=== PATIENT | female | born 1935 | race Caucasian/White ===

== ENCOUNTER → 2016-08-17 | Outpatient (CLI) | payer BC ==
[~2016-08-17] MED LIST: ACET-1256 PO; ASPI81TA21 PO; CINN1CAP2 PO; CPR500 PO; FISHOIL PO; FURO20TA PO; IBUP-1050 PO; LOSA25TA18 PO; MULT-831 PO; MULTTAB58 PO; POLY335040 PO; PRLSR20 PO; TURM1CAP4 PO; VTMD1000 PO
--- NOTE | 2016-08-17 13:52 | MAMMOGRAPHY REPORT ---
BILATERAL DIGITAL SCREENING MAMMOGRAM WITH CAD: 08/17/2016 CLINICAL HISTORY: Routine screening. Patient has no complaints. TECHNIQUE: Current study was also evaluated with a Computer Aided Detection (CAD) system. Bilatera l CC and MLO views were obtained. COMPARISON: Comparison is made to exams dated: 08/16/2015 mammogram, 08/02/2014 mammogram, 07/28/2013 m ammogram, 07/23/2012 mammogram, 07/18/2011 mammogram, and 07/17/2010 mammogram - [facility]. BREAST COMPOSITION: The tissue of both breasts is almost entirely fatty. FINDINGS: No suspicious masses, calcifications, or areas of architectural distortion are noted in e ither breast. There has been no significant interval change compared to prior exams. Scattered tierney gn-appearing right breast calcifications are stable. Asymmetry seen within the left breast middle d epth posterior to the nipple on the cc view is similar to prior exams. IMPRESSION: ACR BI-RADS CATEGORY 2: BENIGN There is no mammographic evidence of malignancy. A 1 year screening mammogram is recommended. The p atient will receive written notification of the results. Approximately 10% of breast cancers are not detected with mammography. A negative mammographic repor t should not delay biopsy if a clinically suggestive mass is present. Susana Duran M.D. /:08/17/2016 12:22:06 [employer] Coordinator: Nabila Benavidez RT(R)(M), [facility] letter sent: Normal 1/2 BI-RADS Code: ACR BI-RADS Category 2: Benign
== END | disposition home or self-care (01) ==
LOC: C.MAMM 11:41
PROVIDERS: ATTEND Obstetrics & Gynecology
DX: Z12.31 Encounter for screening mammogram for malignant neoplasm of breast (principal)

== ENCOUNTER → 2017-02-28 | Outpatient (CLI) | payer BC ==
[2017-02-28 12:30] LABS: BASO % 0.3 %; BASO ABS # 0.03 K/uL (0-0.2); COMPLETE YES; EOS % 2.4 %; IG% 0.3 %; LYMPH % 17.8 %; MEAN CELL VOLUME 93.5 fL (80-100); MEAN CORPUSCULAR HEMOGLOBIN 29.5 pg (25-34); MEAN CORPUSCULAR HGB CONC 31.5 g/dl (32-36); MEAN PLATELET VOLUME 9.5 fL (7.4-10.4); MONO % 8.6 %; NEUT % 70.6 %; PLATELET COUNT 289 K/uL (130-400); RED BLOOD COUNT 4.17 M/uL (4.2-5.4); WHITE BLOOD COUNT 9.53 K/uL (4.8-10.8)
[2017-02-28 13:11] LABS: ALT/SGPT 21 U/L (12-78); AST/SGOT 14 U/L (15-37); BLOOD UREA NITROGEN 23 mg/dl (7-18); BUN/CREATININE RATIO 29.8 (10-20); CALCIUM 9.7 mg/dl (8.5-10.1); CARBON DIOXIDE 28 mmol/L (21-32); CHLORIDE 104 mmol/L (98-107); CREATININE 0.77 mg/dl (0.60-1.20); GLUCOSE 91 mg/dl (70-99); POTASSIUM 4.2 mmol/L (3.5-5.1); SODIUM 137 mmol/L (136-145)
[2017-02-28 13:21] LABS: ALB/GLOB RATIO 0.9 (0.9-2); ALKALINE PHOSPHATASE 94 U/L (45-117); RHEUMATOID FACTOR < 10.0 U/mL (0-15)
[2017-02-28 13:43] LABS: LYME DISEASE AB IGM NEG (NEG)
[2017-02-28 13:46] LABS: LYME DISEASE AB IGG NEG (NEG)
[2017-03-02 11:08] LABS: METHYLMALONIC ACID 201 NMOL/L (87-318)
--- NOTE | 2017-03-06 12:16 | CODING QUERY MEDICAL NECESSITY ---
SUPPORTING DIAGNOSIS NEEDED A supporting diagnosis is required for the test/procedure performed on this patient in order for us to be reimbursed by the patient's insurance. Please provide a supporting diagnosis for the following test/procedure listed below next to the test name along with your signature. *If there is no additional diagnosis for this patient that would support the following test/procedure please document that below next to the test/procedure. Test(s)/Procedure(s) that require a supporting diagnosis: * VITAMIN B12 DIAGNOSIS: Provider Signature: Date: Thank you Evelyn Nisland [employer] Once completed, please kindly fax back to [phone] For questions please call [phone]
== END | disposition home or self-care (01) ==
LOC: C.LAB 11:34
PROVIDERS: ATTEND Internal Medicine Critical Care Medicine
DX: D64.9 Anemia, unspecified (principal); M19.90 Unspecified osteoarthritis, unspecified site; E03.9 Hypothyroidism, unspecified; R53.83 Other fatigue; G62.9 Polyneuropathy, unspecified

== ENCOUNTER → 2017-04-25 | Outpatient (CLI) | payer BC ==
[2017-04-25 09:50] LABS: BASO % 0.2 %; BASO ABS # 0.02 K/uL (0-0.2); COMPLETE YES; EOS % 2.5 %; HEMATOCRIT 42.3 % (37-47); IG% 0.3 %; LYMPH % 20.4 %; LYMPH ABS # 2.21 K/uL (1.2-3.4); MEAN CELL VOLUME 94.8 fL (80-100); MEAN CORPUSCULAR HEMOGLOBIN 30.3 pg (25-34); MEAN CORPUSCULAR HGB CONC 31.9 g/dl (32-36); MEAN PLATELET VOLUME 10.2 fL (7.4-10.4); MONO % 10.5 %; NEUT % 66.1 %; PLATELET COUNT 299 K/uL (130-400); RED BLOOD COUNT 4.46 M/uL (4.2-5.4); WHITE BLOOD COUNT 10.81 K/uL (4.8-10.8)
[2017-04-25 10:03] LABS: ESTIMATED AVERAGE GLUCOSE 120 mg/dl; HA1C FLAG Normal (Normal)
[2017-04-25 10:17] LABS: ALT/SGPT 24 U/L (12-78); BLOOD UREA NITROGEN 27 mg/dl (7-18); BUN/CREATININE RATIO 30.3 (10-20); CALCIUM 9.9 mg/dl (8.5-10.1); CARBON DIOXIDE 25 mmol/L (21-32); CHLORIDE 104 mmol/L (98-107); CREATININE 0.89 mg/dl (0.60-1.20); GLUCOSE 82 mg/dl (70-99); POTASSIUM 4.1 mmol/L (3.5-5.1); SODIUM 137 mmol/L (136-145)
[2017-04-25 10:28] LABS: ALB/GLOB RATIO 0.9 (0.9-2); ALKALINE PHOSPHATASE 79 U/L (45-117); AST/SGOT 17 U/L (15-37)
== END | disposition home or self-care (01) ==
LOC: C.LABVPSUW 09:11
PROVIDERS: ATTEND Internal Medicine Critical Care Medicine
DX: E03.9 Hypothyroidism, unspecified (principal); E11.9 Type 2 diabetes mellitus without complications; M79.1 Myalgia; D64.9 Anemia, unspecified

== ENCOUNTER → 2017-08-05 | Outpatient (CLI) | payer BC ==
[2017-08-05 10:31] LABS: ALT/SGPT 25 U/L (12-78); AST/SGOT 20 U/L (15-37); BLOOD UREA NITROGEN 34 mg/dl (7-18); CALCIUM 9.8 mg/dl (8.5-10.1); CARBON DIOXIDE 26 mmol/L (21-32); CREATININE 1.11 mg/dl (0.60-1.20); GLUCOSE 97 mg/dl (70-99); POTASSIUM 4.2 mmol/L (3.5-5.1); SODIUM 136 mmol/L (136-145)
[2017-08-05 10:33] LABS: ALKALINE PHOSPHATASE 65 U/L (45-117); TOTAL PROTEIN 7.8 gm/dl (6.4-8.2)
== END | disposition home or self-care (01) ==
LOC: C.LABVPSUW 09:25
PROVIDERS: ATTEND Internal Medicine Critical Care Medicine
DX: R10.9 Unspecified abdominal pain (principal)

== ENCOUNTER → 2017-08-08 | Outpatient (CLI) | payer BC ==
--- NOTE | 2017-08-08 08:47 | DIAGNOSTIC IMAGING REPORT ---
ULTRASOUND RIGHT UPPER QUADRANT ABDOMEN CLINICAL HISTORY: Right upper quadrant abdominal pain.. COMPARISON STUDY: Abdominal ultrasound dated 12/26/2014. TECHNIQUE: Real-time, grayscale, and color flow sonography of the right upper quadrant of the abdomen was performed. Images are reviewed in the transverse and longitudinal planes. FINDINGS: Liver: The liver is normal in size and heterogeneous and echotexture. Echogenic foci question previously are not clearly identified. There is no intrahepatic biliary ductal dilatation. The main portal vein is patent. Gallbladder: The gallbladder is normal in appearance. No gallstones are identified. There is no gallbladder wall thickening or pericholecystic fluid. A sonographic Dowd's sign is reportedly absent. The common bile duct measures up to 0.5 cm in diameter. Pancreas: Visualized portions of the pancreatic head are normal in appearance. The majority of the pancreas was not well visualized. Right kidney: Survey images of the right kidney demonstrate cortical atrophy. There is no hydronephrosis. A 1.7 cm cyst is incidentally noted. Ascites: None. IMPRESSION: 1. No acute sonographic abnormality is identified. No gallstones are seen. 2. The liver is mildly heterogeneous. Echogenic foci questioned on the 2014 examination were not clearly seen on today's assessment. Electronically signed by: Chavo Blake M.D. 08/08/2017 8:46 AM Dictated Date/Time: 08/08/2017 8:43 AM
== END | disposition home or self-care (01) ==
LOC: C.ULTR 07:32
PROVIDERS: ATTEND Internal Medicine Critical Care Medicine
DX: R10.11 Right upper quadrant pain (principal)

== ENCOUNTER → 2017-08-12 | Outpatient (CLI) | payer BC ==
[2017-08-12 10:10] LABS: BASO % 0.2 %; BASO ABS # 0.02 K/uL (0-0.2); EOS % 2.2 %; EOS ABS # 0.21 K/uL (0-0.5); HEMATOCRIT 39.5 % (37-47); HEMOGLOBIN 12.6 g/dL (12.0-16.0); IG# 0.03 K/uL (0.00-0.02); LYMPH % 25.3 %; LYMPH ABS # 2.41 K/uL (1.2-3.4); MEAN CELL VOLUME 99.5 fL (80-100); MEAN CORPUSCULAR HEMOGLOBIN 31.7 pg (25-34); MEAN CORPUSCULAR HGB CONC 31.9 g/dl (32-36); MEAN PLATELET VOLUME 10.4 fL (7.4-10.4); MONO % 12.4 %; MONO ABS # 1.18 K/uL (0.11-0.59); NEUT % 59.6 %; NEUT ABS # 5.66 K/uL (1.4-6.5); PLATELET COUNT 263 K/uL (130-400); RED CELL DISTRIBUTION WIDTH SD 50.2 fL (36.4-46.3); WHITE BLOOD COUNT 9.51 K/uL (4.8-10.8)
== END | disposition home or self-care (01) ==
LOC: C.LABVPSUW 09:15
PROVIDERS: ATTEND Internal Medicine Critical Care Medicine
DX: M35.3 Polymyalgia rheumatica (principal)

== ENCOUNTER → 2017-08-19 | Outpatient (CLI) | payer BC ==
--- NOTE | 2017-08-19 15:19 | MAMMOGRAPHY REPORT ---
BILATERAL DIGITAL SCREENING MAMMOGRAM TOMOSYNTHESIS WITH CAD: 08/19/2017 CLINICAL HISTORY: Routine screening examination. TECHNIQUE: Breast tomosynthesis in addition to standard 2D mammography was performed. Current study was also evaluated with a Computer Aided Detection (CAD) system. COMPARISON: Comparison is made to exams dated: 08/17/2016 mammogram, 08/16/2015 mammogram, 07/28/2013 ma mmogram, 08/02/2014 mammogram, 07/23/2012 mammogram, and 07/18/2011 mammogram - [facility]. BREAST COMPOSITION: The tissue of both breasts is almost entirely fatty. FINDINGS: There are a few round, benign-appearing microcalcifications in the right breast. No suspic ious mass, architectural distortion or cluster of suspicious microcalcifications is seen. IMPRESSION: ACR BI-RADS CATEGORY 1: NEGATIVE There is no mammographic evidence of malignancy. A 1 year screening mammogram is recommended. The pa tient will receive written notification of the results. Approximately 10% of breast cancers are not detected with mammography. A negative mammographic report should not delay biopsy if a clinically suggestive mass is present. Flores Moore M.D. ay/:08/19/2017 13:26:33 Label Printer: Jessy ASHRAF(Misha)(Yuniel), [facility] letter sent: Normal 1/2 BI-RADS Code: ACR BI-RADS Category 1: Negative
== END | disposition home or self-care (01) ==
LOC: C.MAMM 11:51
PROVIDERS: ATTEND Obstetrics & Gynecology
DX: Z12.31 Encounter for screening mammogram for malignant neoplasm of breast (principal)

== ENCOUNTER → 2017-09-04 | Outpatient (CLI) | payer BC | END | disposition home or self-care (01) | LOC: C.PAPS 08:23 | PROVIDERS: ATTEND Obstetrics & Gynecology | DX: Z12.4 Encounter for screening for malignant neoplasm of cervix (principal); Z78.0 Asymptomatic menopausal state ==

== ENCOUNTER 2017-11-14 17:49 | Emergency (ER) | payer BC ==
[~2017-11-14] VITALS: Ht 162.6 cm; Wt 97.1 kg
[~2017-11-14 17:49] MED LIST changes: +ASPI-319 PO; -ASPI81TA21 PO
[2017-11-14 18:02] VITALS: TEMP 36.5; Ht 162.6 cm; Wt 97.1 kg
[2017-11-14] MEDS ORDERED: EZET10TA47 PO (18:21)
[2017-11-14] MEDS ORDERED: LPR25 PO (18:21)
[2017-11-14] MEDS ORDERED: MAGN400T6 PO (18:21)
[2017-11-14] MEDS ORDERED: PRED-301 PO (18:21)
[2017-11-14] MEDS ORDERED: POLY335019 PO (18:21)
--- NOTE | 2017-11-14 19:59 | DIAGNOSTIC IMAGING REPORT ---
R VENOUS DOPP LOWER EXT UNILAT HISTORY: 82 years-old Female RLE pain - eval possible DVT acute right lower extremity pain and swelling COMPARISON: None available TECHNIQUE: Multiple real-time sonographic images of the right lower extremity deep venous structures were obtained assessing grayscale appearance, color and spectral flow FINDINGS: Small right popliteal cyst measures up to 1.9 cm. Mild subcutaneous edema about the right lower leg. History of prior greater saphenous vein ligation. There is a fluid collection of the medial right ankle measuring up to 4.3 cm without internal vascularity identified, possibly intramuscular and linear morphology. There is normal compressibility, flow, phasicity and augmentation of the deep venous structures. IMPRESSION: 1. No sonographic evidence of deep venous thrombosis. 2. Small right popliteal cyst. 3. Linear fluid collection of the medial right ankle measuring up to 4.3 cm. Correlate clinically to exclude tenosynovitis of the tibialis posterior. The above report was generated using voice recognition software. It may contain grammatical, syntax or spelling errors. Electronically signed by: Jose Alejandro Perla M.D. 11/14/2017 7:58 PM Dictated Date/Time: 11/14/2017 7:55 PM
[2017-11-14 21:06] VITALS: BP 162/68; PULSE 54; O2SAT 97
--- NOTE | 2017-11-14 23:33 | EMERGENCY ROOM VISIT NOTE ---
ED Visit Note First contact with patient: 18:19 I reviewed the patient's past medical history, medications, and visit nursing notes. I discussed the case with the physician administrative sales assistant, examined the patient, and agree with the findings and plan as documented in the physician assistants note.
--- NOTE | 2017-11-15 00:01 | EMERGENCY ROOM VISIT NOTE ---
History First contact with patient: 18:19 Chief Complaint: LEG PAIN,LEG INJURY Stated Complaint: PAIN IN LOWER R LEG NEAR ANKLE History of Present Illness The patient is a 82 year old female who presents to the Emergency Room with complaints of right lower extremity cramping/pain. The patient reports that her pain started yesterday, and generalized over the entire leg. The pain then started to radiate to the lower leg region. She called her PCPs office and was referred to the emergency department for an ultrasound to rule out DVT. The patient denies any prior history of DVT. She currently denies any pain extending to the medial ankle, foot or heel. The patient denies any prior history of chronic back pain or sciatica. She rates her discomfort a 2 out of 10. She has not noticed any notable swelling of the leg. She also denies any paresthesias or numbness of the right foot or toes. Review of Systems 10 system review was performed and was negative except for pertinent positives and negatives as indicated in history of present illness Past Medical/Surgical History Medical Problems: (1) Carotid Artery Occlusion W O Cerebral Infarction (2) Diverticulosis Colon (W/O Ment Of Hemorrhage) (3) Esophageal Reflux (4) Hyperlipidemia Nec/Nos (5) Hypertension Nos (6) Reflux Esophagitis Medical Problems: (1) Carotid Artery Occlusion W O Cerebral Infarction (2) Diverticulosis Colon (W/O Ment Of Hemorrhage) (3) Esophageal Reflux (4) Hyperlipidemia Nec/Nos (5) Hypertension (6) Hypertension Nos (7) Polymyalgia rheumatica (8) Reflux Esophagitis (9) Rhabdomyolysis Surgical Problems: (1) History of fundoplication (2) History of tonsillectomy (3) Status post meniscectomy Family History FH: gallbladder disease FH: hypertension Social History Smoking Status: Never Smoker Alcohol Use: none Marital Status: Housing Status: lives with family Occupation Status: retired Current/Historical Medications Scheduled Acetaminophen (Tylenol), 1,000 MG PO TID Cholecalciferol (Vitamin D3), 3,000 INTER.UNIT PO DAILY Ezetimibe (Zetia), 10 MG PO DAILY Losartan Potassium (Cozaar), 25 MG PO DAILY Magnesium Oxide (Mag-Ox), 400 MG PO DAILY Metoprolol Tartrate (Lopressor), 12.5 MG PO DAILY Multiple Vitamin (Multivitamin), 1 TAB PO DAILY Multiple Vitamins W/ Minerals (Icaps Lutein & Zeaxanthin), 1 TAB PO BID Omeprazole (Prilosec), 20 MG PO BID Polyethylene Glycol 3350 (Miralax), 17 GM PO BID Prednisone (Prednisone), 5 MG PO DAILY Scheduled PRN Furosemide (Lasix), 20 MG PO DAILY PRN for fluid Physical Exam Vital Signs Date Time Temp Pulse Resp B/P (MAP) Pulse Ox O2 Delivery O2 Flow Rate FiO2 11/14/17 21:06 54 162/68 97 11/14/17 20:19 56 14 162/68 97 11/14/17 18:02 36.5 67 18 152/74 95 Room Air Physical Exam CONSTITUTIONAL: Healthy and well nourished. Alert and oriented X 3 with positive affect. Patient does not appear in any acute distress. HEENT: Normocephalic, atraumatic. Pupils equal, round and reactive. NECK: Full active range of motion without discomfort. RESPIRATORY: Clear to auscultation bilaterally with no wheezing, crackles, rhonchi or stridor. CARDIOVASCULAR: Regular rate and rhythm with no murmurs, rubs or gallops. GASTROINTESTINAL: Bowel sounds present in all quadrants. Soft and nontender to palpation. MUSCULOSKELETAL: Examination of the right lower extremity shows minimal tenderness to palpation over the lateral leg and ankle region. No obvious erythema, warmth to palpation or soft tissue edema. No focal tenderness through the Achilles tendon or gastroc. No tenderness to palpation through the medial malleolus, deltoid ligament or posterior tibial tendon. Negative anterior draw. Pedal pulses are intact. INTEGUMENTARY: No rash or other significant dermatologic conditions noted. NEUROLOGIC: No focal neurologic deficits noted. Right foot and toes are sensory intact. Medical Decision & Procedures ER Provider Diagnostic Interpretation: Venous ultrasound of the right lower extremity is negative for deep vein thrombosis. Radiologist questions a trace amount of fluid along the posterior medial tendon. It is noted that the patient has no clinical tenderness to palpation over this region. Radiologist report is as follows: R VENOUS DOPP LOWER EXT UNILAT HISTORY: 82 years-old Female RLE pain - eval possible DVT acute right lower extremity pain and swelling COMPARISON: None available TECHNIQUE: Multiple real-time sonographic images of the right lower extremity deep venous structures were obtained assessing grayscale appearance, color and spectral flow FINDINGS: Small right popliteal cyst measures up to 1.9 cm. Mild subcutaneous edema about the right lower leg. History of prior greater saphenous vein ligation. There is a fluid collection of the medial right ankle measuring up to 4.3 cm without internal vascularity identified, possibly intramuscular and linear morphology. There is normal compressibility, flow, phasicity and augmentation of the deep venous structures. IMPRESSION: 1. No sonographic evidence of deep venous thrombosis. 2. Small right popliteal cyst. 3. Linear fluid collection of the medial right ankle measuring up to 4.3 cm. Correlate clinically to exclude tenosynovitis of the tibialis posterior. ED Course Patient history and physical exam were performed. Nurse's notes were reviewed. Vital signs were reviewed and and were normal. The patient refused any analgesics while in the emergency department. Venous ultrasound of the right lower extremity is negative for deep vein thrombosis. Ultrasound was also questioning the possibility of a posterior tibial tendinitis, however the patient has no clinical exam findings suggestive of this. The patient was advised that her symptoms are likely secondary to musculotendinous strain from activities on Saturday. She was encouraged to limit weightbearing for a few days. She may also apply an Yury wrap to the leg, along with ice and heat in alternating fashion. Ibuprofen and Tylenol as needed for additional pain relief. The patient was encouraged to follow-up with her PCP as needed if symptoms are not improving. The patient was happy with plan of care, voiced understanding of all discharge instructions, and denied any significant discomfort at the time of discharge. The patient was also evaluated by Dr. Blanchard, ED attending physician, who agrees with workup and plan of care. Medical Decision Medication Reconcilliation Current Medication List: was personally reviewed by in Blood Pressure Screening Patient's blood pressure: Normal blood pressure Impression Primary Impression: Leg pain, right Departure Information Referrals No Doctor, Assigned (PCP) Patient Instructions My [facility]
== END 2017-11-14 20:53 | disposition home or self-care (01) ==
LOC: C.EDB 17:49 → C.EDD 20:53
DX: M79.661 Pain in right lower leg (principal); I65.29 Occlusion and stenosis of unspecified carotid artery; E78.5 Hyperlipidemia, unspecified; I10 Essential (primary) hypertension; Z82.49 Family history of ischemic heart disease and other diseases of the circulatory system; Z79.52 Long term (current) use of systemic steroids; Z79.899 Other long term (current) drug therapy

== ENCOUNTER 2023-02-08 21:09 | Inpatient (IN) ==
--- NOTE | 2023-02-08 22:04 | Emergency Department Note ---
Impression & Plan Generalized weakness, Ambulatory dysfunction, Non-ST elevation NV (NSTEMI) ED Provider Note HISTORY OF PRESENT ILLNESS: Patient is AN 87-year-old female presenting with generalized weakness and ambulatory dysfunction. Patient reports that she ambulates with a walker at home and she lost her footing earlier this afternoon and fell to the ground. She denies striking her head or loss of consciousness. EMS was called but patient refused transport to the hospital. She states that she has been unable to ambulate secondary to weakness this evening. She denies any numbness or t ingling down her legs. Denies any abdominal pain. Denies any chest pain or shortness of breath. She denies any pain in her legs or her pelvis. Denies any dysuria or hematuria. Denies any recent cough or fevers. ROS: as above PHYSICAL EXAM: Constitutional: Patient appears in no acute distress. HENT: Head: Normocephalic and atraumatic. Eyes: EOMI, PERRL Mouth/Throat: Mucous membranes moist. Neck: Trachea midline. Neck supple. Cardiovascular: RRR, No murmurs, rubs or gallops. Intact distal pulses. Pulmonary/Chest: No respiratory distress. Breath sounds clear and equal bilaterally. No wheezes or rales. Abdominal: Abdomen soft, no tenderness, rebound or guarding. Musculoskeletal: No tenderness or deformity noted. +2 pitting edema of bilateral lower extremities. Skin: Warm and dry. No rash, erythema, pallor or cyanosis Psychiatric: Appropriate mood and affect for situation. Neurological: Alert and keenly responsive. CN II-XII grossly intact. MDM: - Vitals signs showed hypertension. - History obtained via patient. Patient presents with generalized weakness and mobility dysfunction patient reports that she was walking with a walker earlier today when she lost her footing and had a mechanical fall. She did not present to the emergency department at that time, but reports that throughout the days she has become progressively weaker and is now unable to walk. She states that she just feels too weak to get up. Denies any dysuria or hematuria. Denies any head injury or loss of consciousness. Denies any fevers. - Chronic conditions affecting care: CKD; HLD; HTN - Differential diagnoses include, but are not limited to: pneumonia; UTI; CVA; ACS; intracranial hemorrhage - Order placed for continuous cardiac monitoring. At this time, monitor showed rate of 80 bpm with normal sinus rhythm, per my interpretation. - External medical records reviewed. EMS run sheet was reviewed. Patient was vitally stable in route. No medications were given prehospital. - EKG reviewed by myself showed normal sinus rhythm. Rate 77 bpm. QTc 470. No acute ischemic changes. Noted to have a bifascicular block - Laboratory workup interpreted by myself showed leukocytosis (WBC 26.45) with left shift; thrombocytosis (plt 424); normal lactate; elevated anion gap (13); CKD (Cr 1.57); normal procalcitonin; elevated troponin (29.7) - UA negative for infection. - COVID/flu/RSV negative - CXR negative for pneumonia, per my interpretation - CT head wo contrast negative for acute intracranial pathology. - Blood cultures obtained - Patient given IV vancomycin and cefepime for antibiotic coverage. - Discussion was had with social contact worker about patient's case and need for admission. - Hospitalist. Dr. Campos, consulted for admission [facility] ASSESSMENT AND PLAN: Diagnosis: generalized weakness; ambulatory dysfunction; leukocytosis; elevated anion gap; NSTEMI Plan: admit Past Med/Surg History Medical History Adenomatous endometrial hyperplasia Bilateral primary osteoarthritis of knee CKD (chronic kidney disease) Cystocele Cystocele, midline GERD (gastroesophageal reflux disease) Hard of hearing High blood pressure High cholesterol History of Osteoarthritis Osteoporosis Rectocele Uterine prolapse Surgical History H/O arthroscopic knee surgery H/O colonoscopy H/O dilation and curettage History of endometrial biopsy History of repair of hiatal hernia History of tonsillectomy and adenoidectomy Hx of left cataract extraction Family History Aunt Breast cancer Father Hypertension Cerebral artery occlusion Mother TIA (transient ischemic attack) Osteoarthritis Rheumatoid arthritis Denies family history of Malignant hyperthermia Ovarian cancer Clotting disorder Colorectal cancer Social History Smoking Status: Never smoker Tobacco Type: Cigarettes Second Hand Exposure: No; Do You Dip or Chew Tobacco: No; Hx Alcohol Use: No Hx Substance Use: No Preferred Language: Estonian Communication Ability: Effective Hearing Ability: Hard of Hearing 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 Beliefs That Will Affect Care: None marital status: Current Living Situation: Spouse current occupational status: retired Feels Safe at Home: Yes Diet: regular caffeine: Yes during the past year weight has: remained stable Do you think of yourself as: straight/heterosexual Gender Identity: Female Assistive Devices: Cane, Glasses, Hearing Aid - Left and Hearing Aid - Right Allergies Allergies Allergy/AdvReac Type Severity Reaction Status Date / Time pravastatin Allergy Unknown RABDOMYELITIS Verified 12/28/22 14:59 (?SPELLING), ELEVATED MUSCLE AND LIVER ENZYMES sulfamethoxazole Allergy Unknown Verified 12/28/22 15:00 [From Bactrim] trimethoprim [From Bactrim] Allergy Unknown Verified 12/28/22 15:00 nitrofurantoin AdvReac Severe Diarrhea Verified 12/28/22 14:59 [From Macrobid] Penicillins AdvReac Mild Diarrhea Verified 12/28/22 14:59 lisinopril AdvReac Unknown COUGH Verified 12/28/22 14:59 Home Meds Home Medications Medication Instructions Recorded Confirmed acetaminophen 500 mg capsule 1,000 mg PO TID 02/09/19 12/28/22 ezetimibe 10 mg tablet (Zetia) 10 mg PO QAM 02/09/19 12/28/22 omeprazole 20 mg capsule,delayed 20 mg PO BID 02/09/19 12/28/22 release prednisone 5 mg tablet 5 mg PO QAM 02/09/19 12/28/22 vit C 250 mg-vit E 90 mg-zinc 40 1 tab PO BID 02/09/19 12/28/22 mg-copper 1 [id number] capsule (PreserVision AREDS-2) torsemide 10 mg tablet 10 mg PO DAILY 03/04/20 12/28/22 mirtazapine 7.5 mg tablet 7.5 mg PO HS 06/12/21 12/28/22 polyethylene glycol 3350 17 gram 17 g PO BID PRN 06/12/21 12/28/22 oral powder packet (Miralax) alendronate [Fosamax] PO 08/14/21 12/28/22 patiromer calcium sorbitex PO 06/19/22 12/28/22 [Veltassa] Previous Rx's Medication Instructions Recorded sulfamethoxazole 800 1 tab PO BID 2 days #4 tabs 11/02/22 mg-trimethoprim 160 mg tablet (Bactrim DS) Results & Data (ED) Vital Signs Vital Signs - 24 hr 02/08/23 21:12 02/08/23 22:01 02/08/23 22:53 Temperature 37 C 36.5 C Temperature Source Oral Oral Pulse Rate 78 71 Pulse Rate [Apical] 86 Pulse Rhythm Irregular Pulse Rhythm [Apical] Regular Respiratory Rate 21 19 Respiratory Effort / Characteristics Non-Labored Non-Labored Respiratory Depth Normal Normal Blood Pressure 166/66 H Blood Pressure [Right Arm] 137/82 Blood Pressure Mean 99 Blood Pressure Mean [Right Arm] 100 Pulse Oximetry 97 95 Oxygen Delivery Method Room Air Sepsis Recent Fever Within 48 Hours No Sepsis New/Unexplained Change in Mental Status No Sepsis Action Taken by Nursing No Action Required 02/08/23 23:48 Temperature Temperature Source Pulse Rate Pulse Rate [Apical] 79 Pulse Rhythm Pulse Rhythm [Apical] Respiratory Rate 20 Respiratory Effort / Characteristics Non-Labored Respiratory Depth Normal Blood Pressure Blood Pressure [Right Arm] 127/56 L Blood Pressure Mean Blood Pressure Mean [Right Arm] 79 Pulse Oximetry 97 Oxygen Delivery Method Sepsis Recent Fever Within 48 Hours Sepsis New/Unexplained Change in Mental Status Sepsis Action Taken by Nursing Laboratory Data 02/08/23 21:20 02/08/23 21:20 Lab Results 02/08/23 02/08/23 02/08/23 Range/Units 21:20 21:20 21:20 WBC 26.45 H (4.8-10.8) K/ul RBC 4.68 (4.20-5.40) M/uL Hgb 13.0 (12.0-16.0) g/dl Hct 41.2 (37.0-47.0) % MCV 88.0 (80.0-100.0) fL MCH 27.8 (25.0-34.0) pg MCHC 31.6 L (32.0-36.0) g/dL RDW Std Deviation 48.5 H (36.4-46.3) fL RDW Coeff of Andreia 15.1 H (11.5-14.5) % Plt Count 424 H (130-400) K/uL MPV 11.2 (9.4-12.4) fL Immature Gran % (Auto) 0.8 % Neut % (Auto) 86.3 % Lymph % (Auto) 2.4 % [place] % (Auto) 8.3 % Eos % (Auto) 1.9 % Baso % (Auto) 0.3 % Neut # (Auto) 22.79 H (1.40-6.50) K/uL Lymph # (Auto) 0.64 L (1.2-3.4) K/uL [place] # (Auto) 2.20 H (0.11-0.59) K/uL Eos # (Auto) 0.51 H (0-0.50) K/uL Baso # (Auto) 0.09 (0-0.2) K/uL Immature Gran # (Auto) 0.22 H (0.01-0.20) K/uL Sodium 135 L (136-145) mmol/L Potassium 3.6 (3.5-5.1) mmol/L Chloride 102 (98-107) mmol/L Carbon Dioxide 20 L (21-32) mmol/L Anion Gap 13 H (3-11) BUN 40 H (6-23) mg/dl Creatinine 1.57 H (0.6-1.2) mg/dl Est Cr Clr Drug Dosing 27.5 ml/min Est GFR ( Amer) 34.5 ml/min Est GFR (Non-Af Amer) 29.8 ml/min BUN/Creatinine Ratio 25.5 H (10-20) Glucose 128 H (70-99(Fasting)) mg/dl Lactate (0.4-2.0) mmol/L Calcium 10.0 (8.6-10.3) mg/dl Total Bilirubin 1.0 (0.2-1.0) mg/dl AST 22 (13-39) U/L ALT 16 (7-52) U/L Alkaline Phosphatase 60 (34-104) U/L Troponin I High Sens 29.7 H (0-14) pg/ml Total Protein 7.4 (6.0-8.3) gm/dl Albumin 4.2 (3.4-5.0) gm/dl Globulin 3.2 (2.5-4.0) gm/dl Albumin/Globulin Ratio 1.3 (0.9-2) Procalcitonin 0.40 (0-0.5) ng/ml Urine Color Urine Appearance (Clear) Urine pH (4.5-7.5) Ur Specific [place] (1.000-1.030) Urine Protein (Negative) Urine Glucose (UA) (Negative) Urine Ketones (Negative) Urine Blood (Negative) Urine Nitrite (Negative) Urine Bilirubin (Negative) Urine Urobilinogen (Negative) Ur Leukocyte Esterase (Negative) Urine WBC (Auto) (0-5) /hpf Urine RBC (Auto) (0-4) /hpf U Hyaline Cast (Auto) (0-5) /lpf U Epithel Cells (Auto) (0-5) /lpf Urine Bacteria (Auto) (Negative) SARS-CoV-2 (PCR) (Negative) Influenza Type A (PCR) (Neg) Influenza Type B (PCR) (Neg) RSV (RT-PCR) (Neg) 02/08/23 02/08/23 02/08/23 Range/Units 22:41 22:41 22:41 WBC (4.8-10.8) K/ul RBC (4.20-5.40) M/uL Hgb (12.0-16.0) g/dl Hct (37.0-47.0) % MCV (80.0-100.0) fL MCH (25.0-34.0) pg MCHC (32.0-36.0) g/dL RDW Std Deviation (36.4-46.3) fL RDW Coeff of Andreia (11.5-14.5) % Plt Count (130-400) K/uL MPV (9.4-12.4) fL Immature Gran % (Auto) % Neut % (Auto) % Lymph % (Auto) % [place] % (Auto) % Eos % (Auto) % Baso % (Auto) % Neut # (Auto) (1.40-6.50) K/uL Lymph # (Auto) (1.2-3.4) K/uL [place] # (Auto) (0.11-0.59) K/uL Eos # (Auto) (0-0.50) K/uL Baso # (Auto) (0-0.2) K/uL Immature Gran # (Auto) (0.01-0.20) K/uL Sodium (136-145) mmol/L Potassium (3.5-5.1) mmol/L Chloride (98-107) mmol/L Carbon Dioxide (21-32) mmol/L Anion Gap (3-11) BUN (6-23) mg/dl Creatinine (0.6-1.2) mg/dl Est Cr Clr Drug Dosing ml/min Est GFR ( Amer) ml/min Est GFR (Non-Af Amer) ml/min BUN/Creatinine Ratio (10-20) Glucose (70-99(Fasting)) mg/dl Lactate 1.6 (0.4-2.0) mmol/L Calcium (8.6-10.3) mg/dl Total Bilirubin (0.2-1.0) mg/dl AST (13-39) U/L ALT (7-52) U/L Alkaline Phosphatase (34-104) U/L Troponin I High Sens (0-14) pg/ml Total Protein (6.0-8.3) gm/dl Albumin (3.4-5.0) gm/dl Globulin (2.5-4.0) gm/dl Albumin/Globulin Ratio (0.9-2) Procalcitonin (0-0.5) ng/ml Urine Color Yellow Urine Appearance Clear (Clear) Urine pH 5.5 (4.5-7.5) Ur Specific [place] 1.013 (1.000-1.030) Urine Protein 1+ H (Negative) Urine Glucose (UA) Negative (Negative) Urine Ketones Negative (Negative) Urine Blood 2+ H (Negative) Urine Nitrite Negative (Negative) Urine Bilirubin Negative (Negative) Urine Urobilinogen Negative (Negative) Ur Leukocyte Esterase Negative (Negative) Urine WBC (Auto) 1-5 (0-5) /hpf Urine RBC (Auto) >30 H (0-4) /hpf U Hyaline Cast (Auto) 1-5 (0-5) /lpf U Epithel Cells (Auto) 20-30 H (0-5) /lpf Urine Bacteria (Auto) Negative (Negative) SARS-CoV-2 (PCR) NEGATIVE (Negative) Influenza Type A (PCR) Negative (Neg) Influenza Type B (PCR) Negative (Neg) RSV (RT-PCR) Negative (Neg) Administered Medications Vancomycin HCl 1,500 mg/ (Sodium Chloride) 530 mls @ 200 mls/hr IV NOW ONE Stop: 02/09/23 01:19 Last Admin: 08/04/23 23:16 Dose: 200 mls/hr Documented By: EVELINE Discontinued Medications Cefepime HCl (Maxipime) 2,000 mg in 20 mls @ 5 mls/min IV NOW STA; Protocol Stop: 02/08/23 22:44 Last Admin: 02/08/23 23:03 Dose: 5 mls/min Documented By: EVELINE Imaging Data Radiologist's Impression: Chest X-Ray 02/08/23 22:00 SINGLE VIEW CHEST CLINICAL HISTORY: Generalized weakness. FINDINGS: An AP, portable, upright chest radiograph is compared to study dated 12/28/2014. The heart is enlarged noting atherosclerotic calcification of the thoracic aorta. The pulmonary vasculature is noncongested. Chronic interstitial thickening is similar to previous. There is bibasilar scarring/atelectasis. No airspace consolidation or large pleural effusion is identified. No pneumothorax is seen. The skeletal structures are osteopenic. The bony thorax is grossly intact. Advanced arthritic change is seen in the shoulders and spine. IMPRESSION: Cardiomegaly with no acute cardiopulmonary abnormality. ACT 112: Negative or not required by law. Electronically signed by: Chavo Blake M.D. 02/08/2023 10:[address] 02/08/23 22:00 CT SCAN OF THE BRAIN WITHOUT IV CONTRAST CLINICAL HISTORY: Generalized weakness. COMPARISON STUDY: CT of the brain dated 07/18/2022. TECHNIQUE: Unenhanced axial CT scan of the brain is performed from the vertex to the skull base. A dose lowering technique was utilized adhering to the principles of ALARA. CT DOSE: 703.85 mGy.cm FINDINGS: Brain parenchyma: There is age-related involutional change noting minimal microangiopathic disease. There is no hemorrhage, mass effect, or evidence of acute territorial ischemia by CT criteria. Virk-white matter differentiation is preserved. No extra-axial fluid collection is seen. Ventricles, sulci, cisterns: Prominent secondary to involutional change. Intracranial vasculature: There is atherosclerotic calcification of the cavernous carotid and vertebral arteries. Calvarium: Unremarkable. Soft tissues: There is a small left frontal scalp contusion. Sinuses and mastoids: The paranasal sinuses are clear. The mastoid air cells are well pneumatized. Orbits: The bony orbits are grossly intact. There are bilateral ocular lens imp lants. IMPRESSION: There is no hemorrhage, mass effect, or evidence of acute territorial ischemia by CT criteria. ACT 112: Negative or not required by law. Electronically signed by: Chavo Blake M.D. 02/08/2023 10:30 PM Discharge Plan Visit Data Chief Complaint: Fall Stated Complaint: LEG WEAKNESS/UNABLE TO WALK/FALL ED Provider: Keyla Chaparro Discharge Problem: Generalized weakness, Ambulatory dysfunction, Non-ST elevation NV (NSTEMI) Forms Stand Alone Forms: [facility] Prescriptions Prescriptions: No Action mirtazapine 7.5 mg tablet 7.5 mg PO HS sulfamethoxazole-trimethoprim [Bactrim DS] 800-160 mg tablet 1 tab PO BID 2 Days Qty: 4 0RF alendronate [Fosamax] PO patiromer calcium sorbitex [Veltassa] PO torsemide 10 mg tablet 10 mg PO DAILY prednisone 5 mg Tablet 5 mg PO QAM omeprazole 20 mg Capsule,Delayed Release(Dr/Ec) 20 mg PO BID acetaminophen 500 mg Capsule 1,000 mg PO TID ezetimibe [Zetia] 10 mg Tablet 10 mg PO QAM Patient Comments: TAKE GENERIC FORM PreserVision AREDS-2 [phone] Capsule 1 tab PO BID polyethylene glycol 3350 [Miralax] 17 gram powder in packet 17 g PO BID PRN Patient Comments: USUALLY TAKE 1 TIME A DAY, SOMETIMES TWICE Referrals Referrals: [facility] [Primary Care Provider] -
[2023-02-08 22:16] LABS: Hematocrit (blood only) 41.2 % (37.0-47.0); Mean Corpuscular Hemoglobin 27.8 pg (25.0-34.0); Mean Corpuscular Hgb Conc 31.6 g/dL (32.0-36.0); Mean Platelet Volume 11.2 fL (9.4-12.4); Platelet Count 424 K/uL (130-400); RDW Coefficient of Variation 15.1 % (11.5-14.5); RDW Standard Deviation 48.5 fL (36.4-46.3); Red Blood Count 4.68 M/uL (4.20-5.40); White Blood Count 26.45 K/ul (4.8-10.8)
--- NOTE | 2023-02-08 22:33 | CT Scan Report ---
CT SCAN OF THE BRAIN WITHOUT IV CONTRAST CLINICAL HISTORY: Generalized weakness. COMPARISON STUDY: CT of the brain dated 07/18/2022. TECHNIQUE: Unenhanced axial CT scan of the brain is performed from the vertex to the skull base. A do se lowering technique was utilized adhering to the principles of ALARA. CT DOSE: 703.85 mGy.cm FINDINGS: Brain parenchyma: There is age-related involutional change noting minimal microangiopathic disease. T here is no hemorrhage, mass effect, or evidence of acute territorial ischemia by CT criteria. Virk-wh ite matter differentiation is preserved. No extra-axial fluid collection is seen. Ventricles, sulci, cisterns: Prominent secondary to involutional change. Intracranial vasculature: There is atherosclerotic calcification of the cavernous carotid and vertebr al arteries. Calvarium: Unremarkable. Soft tissues: There is a small left frontal scalp contusion. Sinuses and mastoids: The paranasal sinuses are clear. The mastoid air cells are well pneumatized. Orbits: The bony orbits are grossly intact. There are bilateral ocular lens implants. IMPRESSION: There is no hemorrhage, mass effect, or evidence of acute territorial ischemia by CT chela jaimes. ACT 112: Negative or not required by law. Electronically signed by: Chavo Blake M.D. 02/08/2023 10:30 PM
--- NOTE | 2023-02-08 22:33 | XRay Report ---
SINGLE VIEW CHEST CLINICAL HISTORY: Generalized weakness. FINDINGS: An AP, portable, upright chest radiograph is compared to study dated 12/28/2014. The heart i s enlarged noting atherosclerotic calcification of the thoracic aorta. The pulmonary vasculature is n oncongested. Chronic interstitial thickening is similar to previous. There is bibasilar scarring/atel ectasis. No airspace consolidation or large pleural effusion is identified. No pneumothorax is seen. The skeletal structures are osteopenic. The bony thorax is grossly intact. Advanced arthritic change is seen in the shoulders and spine. IMPRESSION: Cardiomegaly with no acute cardiopulmonary abnormality. ACT 112: Negative or not required by law. Electronically signed by: Chavo Blake M.D. 02/08/2023 10:32 PM
[2023-02-08 22:39] LABS: Basophils # (auto) 0.09 K/uL (0-0.2); Basophils % (auto) 0.3 %; Eosinophils # (auto) 0.51 K/uL (0-0.50); Eosinophils % (auto) 1.9 %; Immature Granulocytes # (auto) 0.22 K/uL (0.01-0.20); Immature Granulocytes % (auto) 0.8 %; Lymphocytes # (auto) 0.64 K/uL (1.2-3.4); Lymphocytes % (auto) 2.4 %; Monocytes % (auto) 8.3 %; Neutrophils # (auto) 22.79 K/uL (1.40-6.50); Neutrophils % (auto) 86.3 %
[2023-02-08] MEDS ORDERED: CEFEPIME 2,000 MG/20 ML VIAL IV STA (22:41)
[2023-02-08] MEDS ORDERED: VANCOMYCIN HCL 1,500 MG in SODIUM CHLORIDE 0.9% 500 ML IV ONE (22:41)
[2023-02-08] MEDS ORDERED: VANCOMYCIN CONSULT ACTIVE PRN (22:41)
[2023-02-08 23:01] LABS: Appearance Urine Clear (Clear); Bacteria Urine Automated Negative (Negative); Bilirubin Urine Negative (Negative); Blood Urine 2+ (Negative); Color Urine Yellow; Epithelial Cell Urine Auto 20-30 /lpf (0-5); Glucose Urine UA Negative (Negative); Ketones Urine Negative (Negative); Leukocyte Esterase Urine Negative (Negative); Nitrite Urine Negative (Negative); Protein Urine 1+ (Negative); RBC Urine Automated >30 /hpf (0-4); Specific Gravity Urine 1.013 (1.000-1.030); Urobilinogen Urine Negative (Negative); pH Urine 5.5 (4.5-7.5)
[2023-02-08 23:21] LABS: Albumin Globulin Ratio 1.3 (0.9-2); Albumin Level 4.2 gm/dl (3.4-5.0); BUN Creatinine Ratio 25.5 (10-20); Creatinine Clr Calc Pharmacy 27.5 ml/min; Est GFR (African American) 34.5 ml/min; Est GFR (Non-African American) 29.8 ml/min; Globulin 3.2 gm/dl (2.5-4.0); Potassium 3.6 mmol/L (3.5-5.1); Total Protein 7.4 gm/dl (6.0-8.3)
[2023-02-08 23:27] LABS: Troponin I High Sensitivity 29.7 pg/ml (0-14)
[2023-02-08 23:33] LABS: Influenza A virus by PCR Negative (Neg); Influenza B virus by PCR Negative (Neg); RSV by PCR Negative (Neg); SARS CoV2 RNA(COVID-19) Ceph NEGATIVE (Negative)
[2023-02-09] MEDS ORDERED: ACETAMINOPHEN 325 MG TAB PO STA (00:59)
[2023-02-09] MEDS ORDERED: ACETAMINOPHEN 325 MG TAB ONE (01:02)
--- NOTE | 2023-02-09 01:15 | History & Physical Report ---
Date of Service February 09, 2023 Assessment & Plan (1) Generalized weakness: (2) Ambulatory dysfunction: (3) Non-ST elevation PR (NSTEMI): (4) Bilateral primary osteoarthritis of knee: (5) Rotator cuff arthropathy of both shoulders: (6) Chronic venous insufficiency: (7) Polymyalgia rheumatica: (8) Fall due to stumbling: (9) UTI (urinary tract infection): (10) Esophageal reflux: Plan Ambulatory dysfunction/generalized weakness/fall secondary to stumbling with walker on uneven ground- Potential causes and including but not limited to: Urinary tract infection, PMR flare, NSTEMI, progressive generalized debilitation, renal insufficiency and others Will need to consult PT/OT Polymyalgia rheumatica- On prednisone 5 mg daily Her symptoms of worsened pain all over are suggestive of a PMR flare/adrenal insufficiency We will double dose of prednisone to 10 mg daily, but patient may require more high and extended course of prednisone The symptoms could be aggravated by urinary tract infection in a type of reactive arthritis situation NSTEMI- Troponin 29.7 on admission The patient will be admitted to telemetry for serial cardiac enzymes, serial EKG's, cardiac rhythm monitoring and a 2-D echocardiogram with Dopplers. Likely type II supply demand mismatch Urinary tract infection- Patient had not been on Bactrim in the past for UTI Follow urine culture and sensitivity She received vancomycin IV and cefepime IV from the ED Ceftriaxone 2 g IV every 12 hours to start in the a.m. Acute kidney injury on CKD- Creatinine 1.57, with base range 1.04-1.49 Temporarily hold torsemide Recheck laboratories in a.m. History of Present Illness Chief Complaint: The patient presents to the emergency department after a fall when she was walking with her walker on uneven and ground falling forward over the walker, denying head trauma or any other joint trauma, but her legs were too weak to get up Primary Care Provider: [facility] The patient is a an 87-year-old female with a past medical history including bilateral rotator cuff arthropathy, bilateral knee osteoarthritis, chronic venous insufficiency, chronic lymphedema, rhabdomyolysis, PMR, hypertension, UTI, reflux esophagitis, dyslipidemia, and carotid artery stenosis. The patient presents to the emergency department as noted above, following a mechanical fall, and her legs were too weak to enable her to stand up on her own. She describes a worsening of her general inflammatory state, suggesting a PMR flareup. She is also on Bactrim for UTI, she continues to have symptoms of frequent urination Allergies Allergy/AdvReac Type Severity Reaction Status Date / Time pravastatin Allergy Unknown RABDOMYELITIS Verified 12/28/22 14:59 (?SPELLING), ELEVATED MUSCLE AND LIVER ENZYMES sulfamethoxazole Allergy Unknown Unknown Verified 02/09/23 01:25 [From Bactrim] trimethoprim [From Bactrim] Allergy Unknown Unknown Verified 02/09/23 01:25 nitrofurantoin AdvReac Severe Diarrhea Verified 12/28/22 14:59 [From Macrobid] Penicillins AdvReac Mild Diarrhea Verified 12/28/22 14:59 lisinopril AdvReac Unknown COUGH Verified 12/28/22 14:59 Home Medications Medication Instructions Recorded Confirmed Type acetaminophen 500 mg capsule 1,000 mg PO TID 02/09/19 02/09/23 History ezetimibe 10 mg tablet (Zetia) 10 mg PO QAM 02/09/19 02/09/23 History omeprazole 20 mg capsule,delayed 20 mg PO BID 02/09/19 02/09/23 History release vit C 250 mg-vit E 90 mg-zinc 40 1 tab PO BID 02/09/19 02/09/23 History mg-copper 1 [id number] capsule (PreserVision AREDS-2) torsemide 10 mg tablet 10 mg PO DAILY 03/04/20 02/09/23 History alendronate 70 mg tablet 70 mg PO WE 02/09/23 02/09/23 History allopurinol 100 mg tablet 100 mg PO DAILY 02/09/23 02/09/23 History docusate sodium 100 mg capsule 100 mg PO DAILY 02/09/23 02/09/23 History (Colace) melatonin 10 mg tablet 10 mg PO HS 02/09/23 02/09/23 History patiromer calcium sorbitex 8.4 8.4 g PO DAILY 02/09/23 02/09/23 History gram oral powder packet (Veltassa) prednisone 5 mg tablet 5 mg PO Q OTHER DAY 02/09/23 02/09/23 History Past Med/Surg History Medical History Adenomatous endometrial hyperplasia Bilateral primary osteoarthritis of knee CKD (chronic kidney disease) Cystocele Cystocele, midline GERD (gastroesophageal reflux disease) Hard of hearing High blood pressure High cholesterol History of Osteoarthritis Osteoporosis Rectocele Uterine prolapse Surgical History H/O arthroscopic knee surgery H/O colonoscopy H/O dilation and curettage History of endometrial biopsy History of repair of hiatal hernia History of tonsillectomy and adenoidectomy Hx of left cataract extraction Family History Aunt Breast cancer Father Hypertension Cerebral artery occlusion Mother TIA (transient ischemic attack) Osteoarthritis Rheumatoid arthritis Denies family history of Malignant hyperthermia Ovarian cancer Clotting disorder Colorectal cancer Social History Smoking Status: Never smoker Tobacco Type: Cigarettes Second Hand Exposure: No; Do You Dip or Chew Tobacco: No; Hx Alcohol Use: No Hx Substance Use: No Preferred Language: Belarusian Communication Ability: Effective Hearing Ability: Hard of Hearing Back Tender Pulp Drier Required: No Beliefs That Will Affect Care: None marital status: Current Living Situation: Spouse current occupational status: retired Feels Safe at Home: Yes Diet: regular caffeine: Yes during the past year weight has: remained stable Do you think of yourself as: straight/heterosexual Gender Identity: Female Assistive Devices: Cane, Glasses, Hearing Aid - Left and Hearing Aid - Right Review of Systems Review of Systems: The patient denies chest pain, palpitations, shortness of breath, dyspnea on exertion, cough, sore throat, fevers, chills, sweats, nausea, vomiting, diarrhea , constipation, abdominal pain, pelvic pain, blood in urine or stool, dysuria, lightheadedness, dizziness, headache, memory loss, loss of consciousness, rash, abnormal bruising or bleeding, focal weakness, numbness or tingling in arms or legs, or night sweats. The review of systems is otherwise negative other than for that already noted above, and at least 10 systems have been reviewed. Physical Exam Physical Exam: The patient is awake, alert and oriented 3, well developed and well nourished, normocephalic and atraumatic, lying in bed and in no acute distress. HEENT--PERRL, EOMI, mucous membranes and oropharynx mildly dry. Neck--supple. No JVD. No bruits. Thyroid normal, trachea midline, no adenopathy. Heart--normal S1 and S2. No murmurs, rubs or gallops. Lungs--clear bilaterally, no respiratory distress, no accessory muscle use. Abdomen--normal bowel sounds and soft. Nontender. Nondistended, no hernias or masses, no organomegaly. Extremities--no cyanosis or clubbing. Mixture of lymphedema and venous insufficiency changes Dermatologic--normal skin turgor, normal color, no abnormal lymph nodes, no rash. Neurologic--cranial nerves II through XII grossly intact. Rheumatologic--limited exam due to generalized discomfort Psychiatric--normal affect. Results & Data Results & Data Vital Signs (Past 12 Hours) Vital Signs Temp Pulse Pulse Resp BP BP Pulse Ox 02/08/23 23:48 79 20 127/56 L 97 02/08/23 22:53 36.5 C 86 19 137/82 95 02/08/23 22:01 71 02/08/23 21:12 37 C 78 21 166/66 H 97 O2 Del Method 02/08/23 23:48 02/08/23 22:53 02/08/23 22:01 02/08/23 21:12 Room Air Laboratory Results Laboratory Results WBC 26.45 K/ul (4.8-10.8) H 02/08/23 21:20 RBC 4.68 M/uL (4.20-5.40) 02/08/23 21:20 Hgb 13.0 g/dl (12.0-16.0) 02/08/23 21:20 Hct 41.2 % (37.0-47.0) 02/08/23 21:20 MCV 88.0 fL (80.0-100.0) 02/08/23 21:20 MCH 27.8 pg (25.0-34.0) 02/08/23 21:20 MCHC 31.6 g/dL (32.0-36.0) L 02/08/23 21:20 RDW Std Deviation 48.5 fL (36.4-46.3) H 02/08/23 21:20 RDW Coeff of Andreia 15.1 % (11.5-14.5) H 02/08/23 21:20 Plt Count 424 K/uL (130-400) H 02/08/23 21:20 MPV 11.2 fL (9.4-12.4) 02/08/23 21:20 Immature Gran % (Auto) 0.8 % 02/08/23 21:20 Neut % (Auto) 86.3 % 02/08/23 21:20 Lymph % (Auto) 2.4 % 02/08/23 21:20 Tift % (Auto) 8.3 % 02/08/23 21:20 Eos % (Auto) 1.9 % 02/08/23 21:20 Baso % (Auto) 0.3 % 02/08/23 21:20 Neut # (Auto) 22.79 K/uL (1.40-6.50) H 02/08/23 21:20 Lymph # (Auto) 0.64 K/uL (1.2-3.4) L 02/08/23 21:20 Tift # (Auto) 2.20 K/uL (0.11-0.59) H 02/08/23 21:20 Eos # (Auto) 0.51 K/uL (0-0.50) H 02/08/23 21:20 Baso # (Auto) 0.09 K/uL (0-0.2) 02/08/23 21:20 Immature Gran # (Auto) 0.22 K/uL (0.01-0.20) H 02/08/23 21:20 Sodium 135 mmol/L (136-145) L 02/08/23 21:20 Potassium 3.6 mmol/L (3.5-5.1) 02/08/23 21:20 Chloride 102 mmol/L (98-107) 02/08/23 21:20 Carbon Dioxide 20 mmol/L (21-32) L 02/08/23 21:20 Anion Gap 13 (3-11) H 02/08/23 21:20 BUN 40 mg/dl (6-23) H 02/08/23 21:20 Creatinine 1.57 mg/dl (0.6-1.2) H 02/08/23 21:20 Est Cr Clr Drug Dosing 27.5 ml/min 02/08/23 21:20 Est GFR ( Amer) 34.5 ml/min 02/08/23 21:20 Est GFR (Non-Af Amer) 29.8 ml/min 02/08/23 21:20 BUN/Creatinine Ratio 25.5 (10-20) H 02/08/23 21:20 Glucose 128 mg/dl (70-99(Fasting)) H 02/08/23 21:20 Lactate 1.6 mmol/L (0.4-2.0) 02/08/23 22:41 Calcium 10.0 mg/dl (8.6-10.3) 02/08/23 21:20 Total Bilirubin 1.0 mg/dl (0.2-1.0) 02/08/23 21:20 AST 22 U/L (13-39) 02/08/23 21:20 ALT 16 U/L (7-52) 02/08/23 21:20 Alkaline Phosphatase 60 U/L (34-104) 02/08/23 21:20 Troponin I High Sens 29.7 pg/ml (0-14) H 02/08/23 21:20 Total Protein 7.4 gm/dl (6.0-8.3) 02/08/23 21:20 Albumin 4.2 gm/dl (3.4-5.0) 02/08/23 21:20 Globulin 3.2 gm/dl (2.5-4.0) 02/08/23 21:20 Albumin/Globulin Ratio 1.3 (0.9-2) 02/08/23 21:20 Procalcitonin 0.40 ng/ml (0-0.5) 02/08/23 21:20 Urine Color Yellow 02/08/23 22:41 Urine Appearance Clear (Clear) 02/08/23 22:41 Urine pH 5.5 (4.5-7.5) 02/08/23 22:41 Ur Specific [place] 1.013 (1.000-1.030) 02/08/23 22:41 Urine Protein 1+ (Negative) H 02/08/23 22:41 Urine Glucose (UA) Negative (Negative) 02/08/23 22:41 Urine Ketones Negative (Negative) 02/08/23 22:41 Urine Blood 2+ (Negative) H 02/08/23 22:41 Urine Nitrite Negative (Negative) 02/08/23 22:41 Urine Bilirubin Negative (Negative) 02/08/23 22:41 Urine Urobilinogen Negative (Negative) 02/08/23 22:41 Ur Leukocyte Esterase Negative (Negative) 02/08/23 22:41 Urine WBC (Auto) 1-5 /hpf (0-5) 02/08/23 22:41 Urine RBC (Auto) >30 /hpf (0-4) H 02/08/23 22:41 U Hyaline Cast (Auto) 1-5 /lpf (0-5) 02/08/23 22:41 U Epithel Cells (Auto) 20-30 /lpf (0-5) H 02/08/23 22:41 Urine Bacteria (Auto) Negative (Negative) 02/08/23 22:41 SARS-CoV-2 (PCR) NEGATIVE (Negative) 02/08/23 22:41 Influenza Type A (PCR) Negative (Neg) 02/08/23 22:41 Influenza Type B (PCR) Negative (Neg) 02/08/23 22:41 RSV (RT-PCR) Negative (Neg) 02/08/23 22:41 Impressions Chest X-Ray 02/08/23 22:00 SINGLE VIEW CHEST CLINICAL HISTORY: Generalized weakness. FINDINGS: An AP, portable, upright chest radiograph is compared to study dated 12/28/2014. The heart is enlarged noting atherosclerotic calcification of the thoracic aorta. The pulmonary vasculature is noncongested. Chronic interstitial thickening is similar to previous. There is bibasilar scarring/atelectasis. No airspace consolidation or large pleural effusion is identified. No pneumothorax is seen. The skeletal structures are osteopenic. The bony thorax is grossly intact. Advanced arthritic change is seen in the shoulders and spine. IMPRESSION: Cardiomegaly with no acute cardiopulmonary abnormality. ACT 112: Negative or not required by law. Electronically signed by: Chavo Blake M.D. 02/08/2023 10:[address] 02/08/23 22:00 CT SCAN OF THE BRAIN WITHOUT IV CONTRAST CLINICAL HISTORY: Generalized weakness. COMPARISON STUDY: CT of the brain dated 07/18/2022. TECHNIQUE: Unenhanced axial CT scan of the brain is performed from the vertex to the skull base. A dose lowering technique was utilized adhering to the [facility] [place]. CT DOSE: 703.85 mGy.cm FINDINGS: Brain parenchyma: There is age-related involutional change noting minimal microangiopathic disease. There is no hemorrhage, mass effect, or evidence of acute territorial ischemia by CT criteria. Virk-white matter differentiation is preserved. No extra-axial fluid collection is seen. Ventricles, sulci, cisterns: Prominent secondary to involutional change. Intracranial vasculature: There is atherosclerotic calcification of the cavernous carotid and vertebral arteries. Calvarium: Unremarkable. Soft tissues: There is a small left frontal scalp contusion. Sinuses and mastoids: The paranasal sinuses are clear. The mastoid air cells are well pneumatized. Orbits: The bony orbits are grossly intact. There are bilateral ocular lens implants. IMPRESSION: There is no hemorrhage, mass effect, or evidence of acute territorial ischemia by CT criteria. ACT 112: Negative or not required by law. Electronically signed by: Chavo Balke M.D. 02/08/2023 10:30 PM Code Status & VTE Plan Code Status Full code VTE Prophylaxis Plan VTE Prophylaxis will be ordered: Yes PG Care Time/CCT Total # of Minutes Spent Total Time Spent with Patient: Total time spent is greater than 50% in coordination of care (as documented) at patient's floor/unit and/or counseling patient: Coding Level of Care Code 47792 INT INP/OBS CARE 3/75MIN Diagnoses Generalized weakness R53.1 Ambulatory dysfunction R26.2 Non-ST elevation PR (NSTEMI) I21.4 Bilateral primary osteoarthritis of knee M17.0 Rotator cuff arthropathy of both shoulders M12.811; M12.812 Chronic venous insufficiency I87.2 Polymyalgia rheumatica M35.3 Fall due to stumbling W01.0XXA UTI (urinary tract infection) N39.0 Esophageal reflux K21.9
[2023-02-09] MEDS ORDERED: ONDANSETRON INJ 2 MG/ML 2 ML VIAL IV PRN (02:56)
[2023-02-09] MEDS ORDERED: SODIUM CHLORIDE 0.9% 1000ML 1,000 ML IV SCH (02:56)
[2023-02-09] MEDS ORDERED: POLYETHYLENE (MIRALAX) 17 GM PACK PO PRN (02:56)
[2023-02-09 05:07] LABS: Basophils # (auto) 0.08 K/uL (0-0.2); Basophils % (auto) 0.4 %; Eosinophils # (auto) 0.43 K/uL (0-0.50); Eosinophils % (auto) 2.1 %; Hematocrit (blood only) 34.1 % (37.0-47.0); Hemoglobin 10.7 g/dl (12.0-16.0); Immature Granulocytes # (auto) 0.14 K/uL (0.01-0.20); Immature Granulocytes % (auto) 0.7 %; Lymphocytes % (auto) 5.3 %; Mean Corpuscular Hemoglobin 27.6 pg (25.0-34.0); Mean Corpuscular Hgb Conc 31.4 g/dL (32.0-36.0); Mean Corpuscular Volume 88.1 fL (80.0-100.0); Mean Platelet Volume 11.5 fL (9.4-12.4); Monocytes % (auto) 10.2 %; Neutrophils # (auto) 16.79 K/uL (1.40-6.50); Neutrophils % (auto) 81.3 %; Platelet Count 356 K/uL (130-400); RDW Coefficient of Variation 15.2 % (11.5-14.5); RDW Standard Deviation 48.4 fL (36.4-46.3); Red Blood Count 3.87 M/uL (4.20-5.40); White Blood Count 20.64 K/ul (4.8-10.8)
[2023-02-09 05:18] LABS: Albumin Level 3.4 gm/dl (3.4-5.0); BUN Creatinine Ratio 27.8 (10-20); Calcium 8.9 mg/dl (8.6-10.3); Est GFR (African American) 38.3 ml/min; Phosphorus 3.4 mg/dl (2.5-4.9); Potassium 3.2 mmol/L (3.5-5.1)
--- NOTE | 2023-02-09 07:14 | Electrocardiogram Report ---
Test Reason : Blood Pressure : / mmHG Vent. Rate : 077 BPM Atrial Rate : 077 BPM P-R Int : 154 ms QRS Dur : 146 ms QT Int : 416 ms P-R-T Axes : 083 -76 002 degrees QTc Int : 470 ms Sinus rhythm with Premature atrial complexes Right bundle branch block Left anterior fascicular block Bifascicular block Abnormal ECG When compared with ECG of 27-DEC-2014 12:58, Premature atrial complexes are now Present (RBBB and left anterior fascicular block) is now Present Confirmed by Matthew Álvarez ([id number]) on 02/09/2023 7:13:58 AM Referred By: REFERRED SELF Confirmed By:Michael Álvarez
--- NOTE | 2023-02-09 07:22 | Hospitalist Progress Note ---
Date of Service February 09, 2023 Assessment & Plan (1) Generalized weakness: (2) Ambulatory dysfunction: (3) Non-ST elevation ID (NSTEMI): (4) Polymyalgia rheumatica: Plan Linda Vega is a an 87-year-old female with a past medical history including bilateral rotator cuff arthropathy, bilateral knee osteoarthritis, chronic venous insufficiency, chronic lymphedema, rhabdomyolysis, PMR, hypertension, UTI, reflux esophagitis, dyslipidemia, and carotid artery stenosis who presented to the ED after a fall at home. Ambulatory dysfunction/generalized weakness -Had a fall secondary to stumbling with walker on uneven ground -Likely secondary to urinary symptoms/poor PO intake for the past week -PT/OT consulted Urinary tract infection | Leukocytosis -Dysuria/frequency/urgency symptoms ongoing for 1 week -UA in ED with protein, blood. Follow urine culture and sensitivity -Received vancomycin IV and cefepime IV in the ED -Will continue Ceftriaxone 2g IV q24h -WBC 26k on admission, repeat WBC 20k this a.m. Patient on chronic prednisone as above. -Procal 0.4 -Blood culture pending -Monitor daily CBC Polymyalgia Rheumatica -At home on prednisone 5 mg daily -On admission her symptoms were more diffuse all-over body pain that suggested polymyalgia rheumatica flare -Prednisone dose increased to 10mg daily, however given symptoms are more localized today I have lower suspicion that this is a PMR flare -Consider reducing back to daily dose of 5mg NSTEMI -Troponin 29.7 on admission, repeats so far today at 38.3 and 41.3 -Likely type II supply demand mismatch. Monitor on telemetry -Echocardiogram completed this morning, no significant change from prior studies Acute kidney injury on CKD -Creatinine 1.57 on admission, with base range 1.04-1.49 -Repeat Cr 1.44 this morning -Temporarily hold torsemide -Daily BMP VTE Prophylaxis: Lovenox Diet: Heart Healthy Dispo: PCU/Telemetry Code Status: Full Code Admission and Anticipated Discharge Date Admission Date: February 09, 2023 Supervising Physician Co-Signing Physician Notes I personally examined the patient and verified all garcia points of history and exam, discussed case, and agree with decision making with Dr Bay Seen in follow-up from early AM admit. UTI with sepsis, dehydration/AKImild demand ischemia superimposed on LVHoverall seems to be slightly improved. Otherwise as above Subjective Patient seen and examined at bedside. No acute events overnight. Patient states she is feeling ok this morning. She states that she lives at the [facility] and yesterday fell while using her walker and landed on her right side. She denies any immediate pain and did not hit her head. EMS was called but she said she felt "fine" and was able to make it back to her apartment. However after returning to the apartment she realized that she was unable to stand/get up and felt very weak so they called 911 and she was brought to the hospital. This morning she states she is now having some pain lower back pain but denies any pain at the right hip/elbow on which she landed. States that prior to the fall she was feeling fine, notes it was due to uneven pavement and not due to dizziness/syncope. She notes increased urinary frequency/urgency and dysuria over the past week but denies fever/chills. Notes that she "is supposed to drink 1 gallon of water per day" but typically drinks 48 oz daily- although this has decreased since her urinary symptoms have been ongoing in the past week. She also recalls a history of osteoporosis (previously on Fosamax, but has not rece ived in 3 months), although has never had a fracture. She denies chest pain, shortness of breath, dizziness or presyncope. Endorses constipation, dysuria. Review of Systems Review of Systems: As per above Physical Exam Constitutional: WD/WN, vitals as above Eyes: + anicteric sclerae ENMT: Ears: no external ear abnormality Nose: no external nose abnormality Moist mucous membranes Respiratory: normal respiratory effort, lungs clear to auscultation Cardiovascular: Rate/Rhythm: regular rate and regular rhythm +1 bilateral lower extremity edema Gastrointestinal (Abdomen): Abdomen soft, nondistended, nontender to palpation. Musculoskeletal: Extremities: strength 5/5 throughout Skin: Erythema of anterior surface of bilateral lower extremities. No drainage or rash. Approximately 4"x1" ecchymosis of lateral right hip. Bandage over right elbow. Neurologic: CN's II-XI intact bilaterally; no focal motor deficits Psychiatric: A+Ox3, euthymic affect Results & Data Results & Data Vital Signs (Past 12 Hours) Vital Signs Temp Pulse Pulse Resp BP BP Pulse Ox 02/09/23 07:00 65 19 08/05/23 06:00 61 21 02/09/23 05:00 53 L 19 02/09/23 04:00 59 L 19 02/09/23 03:25 117/49 L 02/09/23 03:25 63 17 02/09/23 03:00 57 L 21 02/09/23 02:00 79 21 02/09/23 01:00 78 20 96 02/09/23 00:00 86 17 95 02/08/23 23:49 127/56 L 02/08/23 23:49 75 20 97 02/08/23 23:00 81 21 97 02/08/23 22:41 137/82 02/08/23 22:41 80 19 94 02/08/23 22:02 70 21 93 02/09/23 06:57 59 L 02/09/23 03:24 62 21 117/49 L 94 02/09/23 03:09 02/09/23 03:07 57 L 18 95 02/09/23 02:00 71 02/08/23 23:48 79 20 127/56 L 97 02/08/23 22:53 36.5 C 86 19 137/82 95 02/08/23 22:01 71 02/08/23 21:12 37 C 78 21 166/66 H 97 Pulse Ox O2 Del Method 02/09/23 07:00 02/09/23 06:00 02/09/23 05:00 02/09/23 04:00 02/09/23 03:25 02/09/23 03:25 02/09/23 03:00 02/09/23 02:00 02/09/23 01:00 02/09/23 00:00 02/08/23 23:49 02/08/23 23:49 02/08/23 23:00 02/08/23 22:41 02/08/23 22:41 02/08/23 22:02 02/09/23 06:57 02/09/23 03:24 Room Air 02/09/23 03:09 95 02/09/23 03:07 Room Air 02/09/23 02:00 02/08/23 23:48 02/08/23 22:53 02/08/23 22:01 02/08/23 21:12 Room Air Diagnostic Findings Chest X-Ray 02/08/23 22:00 SINGLE VIEW CHEST CLINICAL HISTORY: Generalized weakness. FINDINGS: An AP, portable, upright chest radiograph is compared to study dated 12/28/2014. The heart is enlarged noting atherosclerotic calcification of the thoracic aorta. The pulmonary vasculature is noncongested. Chronic interstitial thickening is similar to previous. There is bibasilar scarring/atelectasis. No airspace consolidation or large pleural effusion is identified. No pneumothorax is seen. The skeletal structures are osteopenic. The bony thorax is grossly intact. Advanced arthritic change is seen in the shoulders and spine. IMPRESSION: Cardiomegaly with no acute cardiopulmonary abnormality. ACT 112: Negative or not required by law. Electronically signed by: Chavo Blake M.D. 02/08/2023 10:[address] 02/08/23 22:00 CT SCAN OF THE BRAIN WITHOUT IV CONTRAST CLINICAL HISTORY: Generalized weakness. COMPARISON STUDY: CT of the brain dated 07/18/2022. TECHNIQUE: Unenhanced axial CT scan of the brain is performed from the vertex to the skull base. A dose lowering technique was utilized adhering to the principles of ALARA. CT DOSE: 703.85 mGy.cm FINDINGS: Brain parenchyma: There is age-related involutional change noting minimal microangiopathic disease. There is no hemorrhage, mass effect, or evidence of acute territorial ischemia by CT criteria. Virk-white matter differentiation is preserved. No extra-axial fluid collection is seen. Ventricles, sulci, cisterns: Prominent secondary to involutional change. Intracranial vasculature: There is atherosclerotic calcification of the c avernous carotid and vertebral arteries. Calvarium: Unremarkable. Soft tissues: There is a small left frontal scalp contusion. Sinuses and mastoids: The paranasal sinuses are clear. The mastoid air cells are well pneumatized. Orbits: The bony orbits are grossly intact. There are bilateral ocular lens implants. IMPRESSION: There is no hemorrhage, mass effect, or evidence of acute territ orial ischemia by CT criteria. ACT 112: Negative or not required by law. Electronically signed by: Chavo Blake M.D. 02/08/2023 10:30 PM Resident Activity Tracking Resident Involvement: Resident Care Provided Care Provided: [facility]
[2023-02-09] MEDS ORDERED: predniSONE 10 MG TABLET PO SCH (09:00)
[2023-02-09] MEDS: PANTOprazole 40 MG TAB PO SCH ×2 (09:43→21:19)
[2023-02-09] MEDS: CEROVITE ADV FORMULA TAB PO SCH (09:43)
[2023-02-09] MEDS: EZETIMIBE 10 MG TAB PO SCH (09:43)
[2023-02-09] MEDS: ENOXAPARIN INJ 30 MG/0.3 ML SYR SQ SCH (09:45)
[2023-02-09] MEDS: cefTRIAXone SODIUM 2,000 MG in DEXTROSE 5% 50 ML IV SCH (10:15)
[2023-02-09] MEDS: ACETAMINOPHEN 325 MG TAB PO PRN ×2 (15:20→21:19)
[2023-02-09] MEDS ORDERED: POTASSIUM CHLORIDE CRTAB 20 MEQ TABCR PO STA (16:05)
[2023-02-09] MEDS: allopurinoL 100 MG TAB PO SCH (16:32)
[2023-02-09] MEDS: SODIUM CHLORIDE 0.9% 1000ML 1,000 ML IV SCH (16:32)
[2023-02-09] MEDS ORDERED: MIRTAZAPINE TAB 15 MG TAB PO SCH (21:00)
--- NOTE | 2023-02-09 22:48 | XRay Report ---
SINGLE VIEW PELVIS; 2 VIEWS RIGHT HIP CLINICAL HISTORY: Right hip pain. FINDINGS: An AP view of the pelvis with AP and frog leg views of the right hip are obtained. No prior studies are available for comparison at the time of dictation. The skeletal structures are osteopeni c. There is no radiographic evidence of acute fracture involving the hips or bony pelvis. Mild-to-mod erate arthritic change and joint space narrowing is seen in the hips, right greater than left. Degene rative sclerosis is noted in the sacroiliac joints. Phlebolith are noted in the pelvis. A pessary is suggested. Mild soft tissue edema is suggested overlying the right hip. IMPRESSION: There is no radiographic evidence of acute fracture. Electronically signed by: Chavo Blake M.D. 02/09/2023 10:46 PM
[2023-02-10] MEDS: SODIUM CHLORIDE 0.9% 1000ML 1,000 ML IV SCH (05:44)
[2023-02-10 07:04] LABS: Basophils # (auto) 0.11 K/uL (0-0.2); Basophils % (auto) 0.5 %; Eosinophils % (auto) 2.1 %; Hematocrit (blood only) 35.7 % (37.0-47.0); Hemoglobin 11.2 g/dl (12.0-16.0); Immature Granulocytes # (auto) 0.17 K/uL (0.01-0.20); Immature Granulocytes % (auto) 0.7 %; Lymphocytes % (auto) 3.8 %; Mean Corpuscular Hemoglobin 27.6 pg (25.0-34.0); Mean Corpuscular Hgb Conc 31.4 g/dL (32.0-36.0); Mean Corpuscular Volume 87.9 fL (80.0-100.0); Mean Platelet Volume 11.1 fL (9.4-12.4); Monocytes # (auto) 2.49 K/uL (0.11-0.59); Monocytes % (auto) 10.6 %; Neutrophils # (auto) 19.22 K/uL (1.40-6.50); Neutrophils % (auto) 82.3 %; Platelet Count 402 K/uL (130-400); RDW Coefficient of Variation 15.2 % (11.5-14.5); RDW Standard Deviation 48.5 fL (36.4-46.3); Red Blood Count 4.06 M/uL (4.20-5.40); White Blood Count 23.39 K/ul (4.8-10.8)
--- NOTE | 2023-02-10 07:20 | Electrocardiogram Report ---
Test Reason : Blood Pressure : / mmHG Vent. Rate : 078 BPM Atrial Rate : 078 BPM P-R Int : 176 ms QRS Dur : 150 ms QT Int : 422 ms P-R-T Axes : 042 -54 002 degrees QTc Int : 481 ms Normal sinus rhythm Right bundle branch block Left anterior fascicular block Bifascicular block Abnormal ECG When compared with ECG of 08-FEB-2023 21:19, Premature atrial complexes are no longer Present T wave inversion more evident in Anterior leads Confirmed by Matthew Álvarez ([id number]) on 02/10/2023 7:19:52 AM Referred By: REFERRED SELF Confirmed By:Michael Álvarez
[2023-02-10 07:24] LABS: Albumin Level 3.4 gm/dl (3.4-5.0); BUN Creatinine Ratio 23.8 (10-20); Calcium 8.8 mg/dl (8.6-10.3); Creatinine Clr Calc Pharmacy 33.3 ml/min; Est GFR (Non-African American) 38.8 ml/min; Magnesium 1.4 mg/dl (1.7-2.4); Phosphorus 2.2 mg/dl (2.5-4.9); Potassium 3.9 mmol/L (3.5-5.1)
[2023-02-10] MEDS: cefTRIAXone SODIUM 2,000 MG in DEXTROSE 5% 50 ML IV SCH (08:14)
[2023-02-10] MEDS: ACETAMINOPHEN 325 MG TAB PO PRN ×3 (08:14→23:22)
[2023-02-10] MEDS: PANTOprazole 40 MG TAB PO SCH ×2 (08:15→19:33)
[2023-02-10] MEDS: CEROVITE ADV FORMULA TAB PO SCH (08:15)
[2023-02-10] MEDS: allopurinoL 100 MG TAB PO SCH (08:15)
[2023-02-10] MEDS: EZETIMIBE 10 MG TAB PO SCH (08:16)
[2023-02-10] MEDS: predniSONE 5 MG TAB PO SCH (08:16)
[2023-02-10] MEDS: ENOXAPARIN INJ 30 MG/0.3 ML SYR SQ SCH (09:22)
--- NOTE | 2023-02-10 15:22 | Hospitalist Progress Note ---
"Date of Service February 10, 2023 Assessment & Plan (1) Generalized weakness: (2) Ambulatory dysfunction: (3) Non-ST elevation ND (NSTEMI): (4) Polymyalgia rheumatica: Plan Linda Vega is a an 87-year-old female with a past medical history including bilateral rotator cuff arthropathy, bilateral knee osteoarthritis, chronic venous insufficiency, chronic lymphedema, rhabdomyolysis, PMR, hypertension, UTI, reflux esophagitis, dyslipidemia, and carotid artery stenosis who presented to the ED after a fall at home. Ambulatory dysfunction/generalized weakness -Had a fall secondary to stumbling with walker on uneven ground -Likely secondary to urinary symptoms/poor PO intake for the past week -PT/OT consulted -X-ray of hip/pelvis negative for acute abnormality/fracture, hip is ecchymotic on exam- likely soft tissue Urinary tract infection | Leukocytosis -Dysuria/frequency/urgency symptoms ongoing for 1 week -UA in ED with protein, blood. Culture did not reflex so will be treating empirically -Received vancomycin IV and cefepime IV in the ED -Will continue Ceftriaxone 2g IV q24h -WBC 26k on admission, repeat WBC 23k today (up from 20k yesterday) -Blood culture pending -CRP 12, procal neg today. Will repeat CRP tomorrow -Monitor daily CBC Polymyalgia Rheumatica -At home on prednisone 5 mg every other day -On admission her symptoms were more diffuse all-over body pain that suggested polymyalgia rheumatica flare -Prednisone dose increased to 10mg daily, however given symptoms are more localized today I have lower suspicion that this is a PMR flare -Continue at 5mg daily for now NSTEMI -Troponin 29.7 on admission, repeats at 38.3 and 41.3 -Likely type II supply demand mismatch. Monitor on telemetry -Echocardiogram completed, no significant change from prior studies Acute kidney injury on CKD -Creatinine 1.57 on admission, with base range 1.04-1.49 -Repeat Cr 1.26 this morning -Holding home torsemide -Daily BMP Gout -Continue home dose of allopurinol VTE Prophylaxis: Lovenox Diet: Heart Healthy Dispo: PCU/Telemetry Code Status: Full Code Admission and Anticipated Discharge Date Admission Date: February 09, 2023 Supervising Physician Co-Signing Physician Notes I personally examined the patient and verified all garcia points of history and exam, discussed case, and agree with decision making with Dr Bay dtr present, updated to the best of my ability. pt feeling somewhat better. Vitals noted, in general she is awake and alert pleasant no distress. Breathing unlabored no accessory muscle use. Otherwise as above.. UTI with sepsis, deh ydration/AKImild demand ischemia superimposed on LVHoverall seems to be slightly improved. Trend inflammatory markers given that leukocytosis is a little bit migratorybut seems to be nonspecific given that she otherwise is looking better. Unfortunately it appears that urine culture was not reflexively sentso antibiotics will be empiricso trending inflammatory markers will be useful to help with this as well. Otherwise as above Subjective Patient seen and examined at bedside. Patient had some increased pain at her hip overnight, although this morning states that her pain is improved after taking her morning medications. Notes she has been peeing a lot, admits she hasn't had as much to drink yesterday. Review of Systems Review of Systems: As per above Physical Exam Constitutional: WD/WN, vitals as above Eyes: + anicteric sclerae ENMT: Ears: no external ear abnormality Nose: no external nose abnormality Respiratory: normal respiratory effort, lungs clear to auscultation Cardiovascular: Rate/Rhythm: regular rate and regular rhythm Musculoskeletal: localized right hip pain with movement of the right leg Neurologic: CN's II-XI intact bilaterally; no focal motor deficits Psychiatric: A+Ox3, euthymic affect Results & Data Results & Data Vital Signs (Past 12 Hours) Vital Signs Temp Pulse Pulse Resp BP Pulse Ox O2 Del Method 02/10/23 12:14 37.0 C 64 21 121/57 L 96 Room Air 02/10/23 07:00 74 02/10/23 08:34 36.7 C 86 20 122/62 95 Room Air Resident Activity Tracking Resident Involvement: Resident Care Provided Care Provided: Adult Hospital Medicine"
--- NOTE | 2023-02-10 17:57 | Billing Data ---
Date of Service February 10, 2023 Coding Level of Care Code 36415 SUB INP/OBS CARE MIN
[2023-02-11 06:46] LABS: Basophils % (auto) 0.4 %; Eosinophils # (auto) 0.64 K/uL (0-0.50); Eosinophils % (auto) 2.8 %; Hematocrit (blood only) 36.4 % (37.0-47.0); Hemoglobin 11.3 g/dl (12.0-16.0); Immature Granulocytes # (auto) 0.17 K/uL (0.01-0.20); Immature Granulocytes % (auto) 0.7 %; Lymphocytes # (auto) 1.21 K/uL (1.2-3.4); Lymphocytes % (auto) 5.2 %; Mean Corpuscular Hemoglobin 27.3 pg (25.0-34.0); Mean Corpuscular Volume 87.9 fL (80.0-100.0); Mean Platelet Volume 11.2 fL (9.4-12.4); Monocytes # (auto) 2.16 K/uL (0.11-0.59); Monocytes % (auto) 9.3 %; Neutrophils # (auto) 18.92 K/uL (1.40-6.50); Neutrophils % (auto) 81.6 %; Platelet Count 454 K/uL (130-400); RDW Coefficient of Variation 15.2 % (11.5-14.5); RDW Standard Deviation 48.8 fL (36.4-46.3); Red Blood Count 4.14 M/uL (4.20-5.40)
[2023-02-11 07:09] LABS: Albumin Level 3.4 gm/dl (3.4-5.0); BUN Creatinine Ratio 20.2 (10-20); Calcium 9.1 mg/dl (8.6-10.3); Creatinine Clr Calc Pharmacy 35.7 ml/min; Est GFR (African American) 48.2 ml/min; Est GFR (Non-African American) 41.6 ml/min; Magnesium 1.5 mg/dl (1.7-2.4)
--- NOTE | 2023-02-11 07:22 | Hospitalist Progress Note ---
"Date of Service February 11, 2023 Assessment & Plan (1) Generalized weakness: (2) Ambulatory dysfunction: (3) Non-ST elevation OK (NSTEMI): (4) Polymyalgia rheumatica: Plan Linda Vega is a an 87-year-old female with a past medical history including bilateral rotator cuff arthropathy, bilateral knee osteoarthritis, chronic venous insufficiency, chronic lymphedema, rhabdomyolysis, PMR, hypertension, UTI, reflux esophagitis, dyslipidemia, and carotid artery stenosis who presented to the ED after a fall at home. Urinary tract infection | Leukocytosis -Dysuria/frequency/urgency symptoms ongoing for 1 week -UA in ED with protein, blood, unfortunately culture did not reflex -WBC 26k on admission, WBC 23k today. CRP 13.68 today. Blood culture with no growth x48 hrs -Received vancomycin IV and cefepime IV in the ED -Receiving Ceftriaxone 2g IV q24h -Continues to have urinary urgency, frequency -Will order repeat UA and culture today -Consider broadening antibiotic coverage if not improving -If UA/culture and broader antibiotics do not improve urinary symptoms, will consider urology consult -Monitor daily CBC Ambulatory dysfunction/generalized weakness -Had a fall secondary to stumbling with walker on uneven ground -Likely secondary to urinary symptoms/poor PO intake for the past week -Continue PT/OT -X-ray of hip/pelvis negative for acute abnormality/fracture, hip is ecchymotic on exam- likely soft tissue Polymyalgia Rheumatica -At home on prednisone 5 mg every other day. Follows with [facility] Rheumatology -On admission her symptoms were more diffuse all-over body pain that suggested polymyalgia rheumatica flare, now pain is more localized to right hip -Received Prednisone 10mg on 02/09. Continue Prednisone at 5mg daily for now, will transition back to 5mg every other day closer to discharge Elevated Troponin- Resolved -Troponin 29.7 on admission, repeats at 38.3 and 41.3 -Likely type II supply demand mismatch. Monitor on telemetry -Echocardiogram completed, no significant change from prior studies Acute kidney injury on CKD- Resolved -Creatinine 1.57 on admission, with base range 1.04-1.49 -Repeat Cr 1.19 this morning -Holding home torsemide -Daily BMP Gout -Continue home dose of allopurinol VTE Prophylaxis: Lovenox Diet: Heart Healthy Dispo: PCU/Telemetry Code Status: Full Code Admission and Anticipated Discharge Date Admission Date: February 09, 2023 Supervising Physician Co-Signing Physician Notes Attending attestation Pt seen and examined in concert with Dr. Bay. In agreement with the documented findings as noted in the resident documentation with any exceptions or additions as noted here. Today patient reports improving urinary frequency approaching her baseline (just over every 2 hours) without dysuria and without fever, chills, etc. On examination, S1/S2 nl RRR no MCG. CTAB. Abd NT/ND BS+ve Urinary tract infection - improving on ceftriaxone - repeat UA and culture if applicable, reassuring that sx are improving despite empiric therapy Generalized weakness with ambulatory dysfunction - XR as noted - continue with PT/OT PMR - tolerating prednisone 5mg with controlled symptoms Else see resident documentation as noted. Subjective Patient seen and examined at bedside. No acute events overnight. Patient states she has been able to ambulate some yesterday, is eager to work with PT more. States that she continues to have urinary urgency and frequency but no dysuria. Denies chest pain, shortness of breath, body aches/chills. Review of Systems Review of Systems: As per above Physical Exam Constitutional: WD/WN, vitals as above Eyes: + anicteric sclerae ENMT: Ears: no external ear abnormality Nose: no external nose abnormality Respiratory: normal respiratory effort, lungs clear to auscultation Cardiovascular: Rate/Rhythm: regular rate and regular rhythm +1 nonpitting edema of bilateral lower extremities Gastrointestinal (Abdomen): Abdomen soft, nontender and nondistended. +bowel sounds Musculoskeletal: Moves all extremities Skin: Ecchymosis of lateral surface of right hip Psychiatric: A+Ox3, euthymic affect Genitourinary: Purewick catheter is place Results & Data Results & Data Vital Signs (Past 12 Hours) Vital Signs Temp Pulse Pulse Resp BP Pulse Ox O2 Del Method 02/11/23 00:00 78 02/11/23 04:44 36.8 C 79 22 155/66 H 95 Room Air 02/10/23 23:17 36.7 C 75 21 147/69 H 95 Room Air Resident Activity Tracking Resident Involvement: Resident Care Provided Care Provided: Adult Hospital Medicine"
[2023-02-11 07:43] LABS: C Reactive Protein 13.68 mg/dl (0-0.5)
[2023-02-11] MEDS: cefTRIAXone SODIUM 2,000 MG in DEXTROSE 5% 50 ML IV SCH (07:54)
[2023-02-11] MEDS: MAGNESIUM SULFATE / D5W 1 GM/100 ML BAG IV SCH ×2 (08:57→10:48)
[2023-02-11] MEDS: predniSONE 5 MG TAB PO SCH (08:58)
[2023-02-11] MEDS: EZETIMIBE 10 MG TAB PO SCH (08:58)
[2023-02-11] MEDS: PANTOprazole 40 MG TAB PO SCH ×2 (08:58→20:47)
[2023-02-11] MEDS: CEROVITE ADV FORMULA TAB PO SCH (08:58)
[2023-02-11] MEDS: allopurinoL 100 MG TAB PO SCH (08:59)
[2023-02-11] MEDS: ENOXAPARIN INJ 30 MG/0.3 ML SYR SQ SCH (08:59)
[2023-02-11] MEDS: ACETAMINOPHEN 325 MG TAB PO PRN ×2 (09:39→20:47)
[2023-02-11] MEDS ORDERED: CEFEPIME 1,000 MG in SYRINGE 0 ML IV SCH (10:00)
[2023-02-11 13:30] LABS: Appearance Urine Cloudy (Clear); Bacteria Urine Automated Negative (Negative); Bilirubin Urine Negative (Negative); Blood Urine Negative (Negative); Color Urine Yellow; Epithelial Cell Urine Auto >30 /lpf (0-5); Glucose Urine UA Negative (Negative); Ketones Urine Negative (Negative); Leukocyte Esterase Urine Trace (Negative); Nitrite Urine Negative (Negative); Protein Urine 1+ (Negative); RBC Urine Automated 0-4 /hpf (0-4); Specific Gravity Urine 1.014 (1.000-1.030); Urobilinogen Urine Negative (Negative); pH Urine 5.5 (4.5-7.5)
--- NOTE | 2023-02-11 19:34 | Electrocardiogram Report ---
Test Reason : Blood Pressure : / mmHG Vent. Rate : 079 BPM Atrial Rate : 079 BPM P-R Int : 182 ms QRS Dur : 144 ms QT Int : 412 ms P-R-T Axes : 046 -38 001 degrees QTc Int : 472 ms Normal sinus rhythm with sinus arrhythmia Left axis deviation Right bundle branch block Abnormal ECG When compared with ECG of 10-FEB-2023 05:32, No significant change was found Confirmed by Matthew Álvarez ([id number]) on 02/11/2023 7:33:59 PM Referred By: REFERRED SELF Confirmed By:Michael Álvarez
[2023-02-12] MEDS: ACETAMINOPHEN 325 MG TAB PO PRN ×3 (04:02→20:48)
--- NOTE | 2023-02-12 07:00 | Hospitalist Progress Note ---
"Date of Service February 12, 2023 Assessment & Plan (1) Generalized weakness: (2) Ambulatory dysfunction: (3) Non-ST elevation CT (NSTEMI): (4) Polymyalgia rheumatica: Plan Linda Vega is a an 87-year-old female with a past medical history including bilateral rotator cuff arthropathy, bilateral knee osteoarthritis, chronic venous insufficiency, chronic lymphedema, rhabdomyolysis, PMR, hypertension, UTI, reflux esophagitis, dyslipidemia, and carotid artery stenosis who presented to the ED after a fall at home. Urinary tract infection | Leukocytosis -Dysuria/frequency/urgency symptoms ongoing for 1 week -UA in ED with protein, blood, unfortunately culture did not reflex -WBC 26k on admission, WBC 23k today. Blood culture with no growth x48 hrs -Received vancomycin IV and cefepime IV in the ED -Received Ceftriaxone 2g IV q24h. Now expanded antibiotic coverage with Cefepime -Continues to have some urinary urgency, frequency not yet at baseline -Repeat UA grew yeast (dana non-albicans) -Monitor daily CBC Ambulatory dysfunction/generalized weakness -Had a fall secondary to stumbling with walker on uneven ground -Likely secondary to urinary symptoms/poor PO intake for the past week -Continue PT/OT -X-ray of hip/pelvis negative for acute abnormality/fracture, hip is ecchymotic on exam- likely soft tissue -Patient accepted for SNF, anticipate discharge tomorrow Polymyalgia Rheumatica -At home on prednisone 5 mg every other day. Follows with [facility] Rheumatology -On admission her symptoms were more diffuse all-over body pain that suggested polymyalgia rheumatica flare, now pain is more localized to right hip -Received Prednisone 10mg on 02/09. Continue Prednisone at 5mg daily for now, will transition back to 5mg every other day after discharge Elevated Troponin- Resolved -Troponin 29.7 on admission, repeats at 38.3 and 41.3 -Likely type II supply demand mismatch. -Echocardiogram completed, no significant change from prior studies Acute kidney injury on CKD- Resolved -Creatinine 1.57 on admission, with base range 1.04-1.49 -Repeat Cr 1.19 this morning -Holding home torsemide -Daily BMP Gout -Continue home dose of allopurinol VTE Prophylaxis: Lovenox Diet: Heart Healthy Dispo: PCU/Telemetry Code Status: Full Code Admission and Anticipated Discharge Date Admission Date: February 09, 2023 Supervising Physician Co-Signing Physician Notes Attending attestation Pt seen and examined in concert with Dr. Bay. In agreement with the documented findings as noted in the resident documentation with any exceptions or additions as noted here. Ongoing improvement in dysuria and overall fatigue. Ongoing urinary frequency with disruption of sleep without f/c. On examination, S1/S2 nl RRR no MCG. CTAB. Abd NT/ND BS+ve Urinary tract infection - repeat urine culture pending. Trial of cefepime to attempt to improve frequency if there is a component of undertreatment Generalized weakness with ambulatory dysfunction - XR as noted - continue with PT/OT PMR - tolerating prednisone 5mg with controlled symptoms Else see resident documentation as noted. Subjective Patient seen and examined at bedside. No acute events overnight. Patient notes some improvement with urinary symptoms but still endorses some frequency and urgency. Notes improvement of ambulation and has been able to walk around some more. Denies fever, body aches, chills. Review of Systems Review of Systems: As per above Physical Exam Constitutional: WD/WN, vitals as above Eyes: + anicteric sclerae ENMT: Ears: no external ear abnormality Nose: no external nose abnormality Respiratory: normal respiratory effort, lungs clear to auscultation Cardiovascular: Rate/Rhythm: regular rate and regular rhythm Gastrointestinal (Abdomen): Abdomen soft, nontender Neurologic: no focal motor deficits Psychiatric: A+Ox3, euthymic affect Results & Data Results & Data Vital Signs (Past 12 Hours) Vital Signs Temp Pulse Resp BP Pulse Ox O2 Del Method 02/12/23 02:54 37 C 76 18 130/68 96 Room Air 02/11/23 22:48 36.9 C 81 18 128/71 94 Room Air 02/11/23 19:30 36.4 C L 86 16 161/82 H 98 Room Air Resident Activity Tracking Resident Involvement: Resident Care Provided Care Provided: Adult Hospital Medicine"
[2023-02-12 07:02] LABS: Basophils # (auto) 0.16 K/uL (0-0.2); Basophils % (auto) 0.7 %; Eosinophils # (auto) 0.65 K/uL (0-0.50); Eosinophils % (auto) 2.8 %; Hematocrit (blood only) 34.1 % (37.0-47.0); Hemoglobin 10.8 g/dl (12.0-16.0); Immature Granulocytes # (auto) 0.29 K/uL (0.01-0.20); Immature Granulocytes % (auto) 1.2 %; Lymphocytes % (auto) 6.5 %; Mean Corpuscular Hemoglobin 27.4 pg (25.0-34.0); Mean Corpuscular Hgb Conc 31.7 g/dL (32.0-36.0); Mean Corpuscular Volume 86.5 fL (80.0-100.0); Mean Platelet Volume 11.2 fL (9.4-12.4); Monocytes # (auto) 2.29 K/uL (0.11-0.59); Monocytes % (auto) 9.9 %; Neutrophils # (auto) 18.34 K/uL (1.40-6.50); Neutrophils % (auto) 78.9 %; Platelet Count 495 K/uL (130-400); RDW Coefficient of Variation 15.1 % (11.5-14.5); RDW Standard Deviation 48.3 fL (36.4-46.3); Red Blood Count 3.94 M/uL (4.20-5.40); White Blood Count 23.23 K/ul (4.8-10.8)
[2023-02-12 07:21] LABS: BUN Creatinine Ratio 23.1 (10-20); Calcium 8.9 mg/dl (8.6-10.3); Creatinine Clr Calc Pharmacy 35.1 ml/min; Est GFR (African American) 47.2 ml/min; Est GFR (Non-African American) 40.8 ml/min; Magnesium 1.9 mg/dl (1.7-2.4); Potassium 4.1 mmol/L (3.5-5.1)
[2023-02-12] MEDS: CEROVITE ADV FORMULA TAB PO SCH (08:47)
[2023-02-12] MEDS: ENOXAPARIN INJ 40 MG/0.4 ML SYR SQ SCH (08:47)
[2023-02-12] MEDS: EZETIMIBE 10 MG TAB PO SCH (08:47)
[2023-02-12] MEDS: predniSONE 5 MG TAB PO SCH (08:47)
[2023-02-12] MEDS: allopurinoL 100 MG TAB PO SCH (08:47)
[2023-02-12] MEDS: PANTOprazole 40 MG TAB PO SCH ×2 (08:51→20:48)
[2023-02-12] MEDS ORDERED: cefTRIAXone SODIUM 2,000 MG in DEXTROSE 5% 50 ML IV SCH (09:00)
[2023-02-12] MEDS ORDERED: CEFEPIME 1,000 MG in SYRINGE 0 ML IV SCH (12:45)
[2023-02-12 13:08] LABS: Phosphorus 2.2 mg/dl (2.5-4.9)
[2023-02-12] MEDS: CEFEPIME 1,000 MG in SYRINGE 0 ML IV SCH (13:44)
[2023-02-13] MEDS: CEFEPIME 1,000 MG in SYRINGE 0 ML IV SCH ×2 (01:48→10:55)
[2023-02-13 06:34] LABS: Basophils % (auto) 0.9 %; Eosinophils # (auto) 0.74 K/uL (0-0.50); Eosinophils % (auto) 3.2 %; Hematocrit (blood only) 35.9 % (37.0-47.0); Hemoglobin 11.2 g/dl (12.0-16.0); Immature Granulocytes # (auto) 0.35 K/uL (0.01-0.20); Immature Granulocytes % (auto) 1.5 %; Lymphocytes % (auto) 7.8 %; Mean Corpuscular Hemoglobin 27.6 pg (25.0-34.0); Mean Corpuscular Hgb Conc 31.2 g/dL (32.0-36.0); Mean Corpuscular Volume 88.4 fL (80.0-100.0); Monocytes # (auto) 1.87 K/uL (0.11-0.59); Monocytes % (auto) 8.1 %; Neutrophils # (auto) 18.12 K/uL (1.40-6.50); Neutrophils % (auto) 78.5 %; Platelet Count 575 K/uL (130-400); RDW Coefficient of Variation 15.2 % (11.5-14.5); RDW Standard Deviation 49.6 fL (36.4-46.3); Red Blood Count 4.06 M/uL (4.20-5.40); White Blood Count 23.08 K/ul (4.8-10.8)
[2023-02-13 06:44] LABS: BUN Creatinine Ratio 26.1 (10-20); Calcium 8.9 mg/dl (8.6-10.3); Creatinine Clr Calc Pharmacy 36.9 ml/min; Est GFR (African American) 50.2 ml/min; Est GFR (Non-African American) 43.4 ml/min; Magnesium 1.8 mg/dl (1.7-2.4); Potassium 4.6 mmol/L (3.5-5.1)
[2023-02-13] MEDS: CEROVITE ADV FORMULA TAB PO SCH (08:03)
[2023-02-13] MEDS: predniSONE 5 MG TAB PO SCH (08:03)
[2023-02-13] MEDS: PANTOprazole 40 MG TAB PO SCH (08:03)
[2023-02-13] MEDS: EZETIMIBE 10 MG TAB PO SCH (08:03)
[2023-02-13] MEDS: ENOXAPARIN INJ 40 MG/0.4 ML SYR SQ SCH (08:04)
[2023-02-13] MEDS: allopurinoL 100 MG TAB PO SCH (08:04)
[2023-02-13] MEDS: ACETAMINOPHEN 325 MG TAB PO PRN (08:10)
--- NOTE | 2023-02-13 09:16 | Discharge Summary ---
"Date of Service February 13, 2023 Admission HPI Per Admitting Provider The patient is a an 87-year-old female with a past medical history including bilateral rotator cuff arthropathy, bilateral knee osteoarthritis, chronic venous insufficiency, chronic lymphedema, rhabdomyolysis, PMR, hypertension, UTI, reflux esophagitis, dyslipidemia, and carotid artery stenosis. The patient presents to the emergency department as noted above, following a mechanical fall, and her legs were too weak to enable her to stand up on her own. She describes a worsening of her general inflammatory state, suggesting a PMR flareup. She is also on Bactrim for UTI, she continues to have symptoms of frequent urination Admission Exam Per Admitting Provider The patient is awake, alert and oriented 3, well developed and well nourished, normocephalic and atraumatic, lying in bed and in no acute distress. HEENT--PERRL, EOMI, mucous membranes and oropharynx mildly dry. Neck--supple. No JVD. No bruits. Thyroid normal, trachea midline, no adenopathy. Heart--normal S1 and S2. No murmurs, rubs or gallops. Lungs--clear bilaterally, no respiratory distress, no accessory muscle use. Abdomen--normal bowel sounds and soft. Nontender. Nondistended, no hernias or masses, no organomegaly. Extremities--no cyanosis or clubbing. Mixture of lymphedema and venous insufficiency changes Dermatologic--normal skin turgor, normal color, no abnormal lymph nodes, no rash. Neurologic--cranial nerves II through XII grossly intact. Rheumatologic--limited exam due to generalized discomfort Psychiatric--normal affect. Principal Diagnosis UTI, Deconditioning Discharge Exam Constitutional WD/WN, vitals as above Eyes + anicteric sclerae ENMT Ears: no external ear abnormality Nose: no external nose abnormality Respiratory normal respiratory effort, lungs clear to auscultation Cardiovascular Rate/Rhythm: regular rate and regular rhythm Gastrointestinal (Abdomen) Abdomen soft, nontender Neurologic no focal motor deficits Psychiatric A+Ox3, euthymic affect Discharge Data Allergies Allergy/AdvReac Type Severity Reaction Status Date / Time pravastatin Allergy Unknown RABDOMYELITIS Verified 12/28/22 14:59 (?SPELLING), ELEVATED MUSCLE AND LIVER ENZYMES sulfamethoxazole Allergy Unknown Unknown Verified 02/09/23 01:25 [From Bactrim] trimethoprim [From Bactrim] Allergy Unknown Unknown Verified 02/09/23 01:25 nitrofurantoin AdvReac Severe Diarrhea Verified 12/28/22 14:59 [From Macrobid] Penicillins AdvReac Mild Diarrhea Verified 12/28/22 14:59 lisinopril AdvReac Unknown COUGH Verified 12/28/22 14:59 Consultations 02/09/23 00:25 ED Decision to Admit Stat Ordered Studies 02/08/23 22:00 CT head/brain wo con Stat Hospital Course (1) Generalized weakness: (2) Ambulatory dysfunction: (3) Non-ST elevation OR (NSTEMI): (4) Polymyalgia rheumatica: Disha Linda Vega is a an 87-year-old female with a past medical history including bilateral rotator cuff arthropathy, bilateral knee osteoarthritis, chronic venous insufficiency, chronic lymphedema, rhabdomyolysis, PMR, hypertension, UTI, reflux esophagitis, dyslipidemia, and carotid artery stenosis who presented to the ED after a fall at home. Urinary tract infection | Leukocytosis -Dysuria/frequency/urgency symptoms ongoing for 1 week -UA in ED with protein, blood, unfortunately culture did not reflex -WBC 26k on admission, WBC remained elevated (23k) but stable in setting of clinical improvement and chronic steroids. Blood culture with no growth. -Consider outpatient CBC after discharge to monitor WBC -Received Ceftriaxone and later broadened to Cefepime -Continues to have some urinary urgency, frequency improving -Repeat UA grew yeast (dana non-albicans): will treat with Diflucan Ambulatory dysfunction/generalized weakness -Had a fall secondary to stumbling with walker on uneven ground -Likely secondary to urinary symptoms/poor PO intake for the week prior to her fall -Continue PT/OT at SNF -X-ray of hip/pelvis negative for acute abnormality/fracture, hip is ecchymotic on exam- likely soft tissue Polymyalgia Rheumatica -At home on prednisone 5 mg every other day. Follows with [facility] Rheumatology -On admission her symptoms were more diffuse all-over body pain that suggested polymyalgia rheumatica flare, now pain is more localized to right hip -Received Prednisone 10mg on 02/09. Continue Prednisone at 5mg daily during admission, will transition back to 5mg every other day at discharge Elevated Troponin- Resolved -Troponin 29.7 on admission, repeats at 38.3 and 41.3 -Likely type II supply demand mismatch. -Echocardiogram completed, no significant change from prior studies Acute kidney injury on CKD- Resolved -Creatinine 1.57 on admission, with base range 1.04-1.49 -Repeat Cr 1.15 this morning -Resume home torsemide Gout -Continue home dose of allopurinol Total Time Total Time Spent Total Time Spent (In Minutes): . Discharge Plan Discharge Items Patient Disposition: Transfer Inpatient Rehab Fac Reason For Visit: NTEMI, S/P FALL, BENNY ON CKD Discharge Diagnosis: BENNY on CKD, UTI Activity: Per Instructions section Non-emergency contact: Primary Care Provider Call non-emergency contact if: you have any medication questions and your symptoms worsen [facility] - (Please schedule hospital discharge follow up appointment within 1 week) Diet: Heart Healthy Addtl Attending Provider Instructions: Linda Vega is a an 87-year-old female with a past medical history including bilateral rotator cuff arthropathy, bilateral knee osteoarthritis, chronic venous insufficiency, chronic lymphedema, rhabdomyolysis, PMR, hypertension, UTI, reflux esophagitis, dyslipidemia, and carotid artery stenosis who presented to the ED after a fall at home. Urinary tract infection | Leukocytosis -Dysuria/frequency/urgency symptoms ongoing for 1 week -UA in ED with protein, blood, unfortunately culture did not reflex -WBC 26k on admission, WBC remained elevated (23k) but stable in setting of clinical improvement and chronic steroids. Blood culture with no growth. -Consider outpatient CBC after discharge to monitor WBC -Received Ceftriaxone and later broadened to Cefepime -Continues to have some urinary urgency, frequency improving -Repeat UA grew yeast (dana non-albicans): will treat with Diflucan Ambulatory dysfunction/generalized weakness -Had a fall secondary to stumbling with walker on uneven ground -Likely secondary to urinary symptoms/poor PO intake for the week prior to her fall -Continue PT/OT at SNF -X-ray of hip/pelvis negative for acute abnormality/fracture, hip is ecchymotic on exam- likely soft tissue Polymyalgia Rheumatica -At home on prednisone 5 mg every other day. Follows with [facility] Rheumatology -On admission her symptoms were more diffuse all-over body pain that suggested polymyalgia rheumatica flare, now pain is more localized to right hip -Received Prednisone 10mg on 02/09. Continue Prednisone at 5mg daily during admission, will transition back to 5mg every other day at discharge Elevated Troponin- Resolved -Troponin 29.7 on admission, repeats at 38.3 and 41.3 -Likely type II supply demand mismatch. -Echocardiogram completed, no significant change from prior studies Acute kidney injury on CKD- Resolved -Creatinine 1.57 on admission, with base range 1.04-1.49 -Repeat Cr 1.15 this morning -Resume home torsemide Gout -Continue home dose of allopurinol Pending Studies at Discharge: No Stand-Alone Forms: My [facility] Skilled Items Patient informed of condition?: Yes DNR: No Discharge Level of Care: Acute rehab Communicable Disease: No Discharge Prognosis: Stable Lines: None Urinary Catheter: No Medications and DC Order Prescriptions: New fluconazole [Diflucan] 150 mg tablet 150 mg PO Q3D Qty: 2 0RF Continued torsemide 10 mg tablet 10 mg PO DAILY omeprazole 20 mg Capsule,Delayed Release(Dr/Ec) 20 mg PO BID acetaminophen 500 mg Capsule 1,000 mg PO TID ezetimibe [Zetia] 10 mg Tablet 10 mg PO QAM Patient Comments: TAKE GENERIC FORM PreserVision AREDS-2 [id number]-mg Capsule 1 tab PO BID alendronate 70 mg tablet 70 mg PO WE prednisone 5 mg tablet 5 mg PO Q OTHER DAY Rx Instructions: Takes on odd days allopurinol 100 mg tablet 100 mg PO DAILY docusate sodium [Colace] 100 mg Capsule 100 mg PO DAILY melatonin 10 mg Tablet 10 mg PO HS Veltassa 8.4 gram powder in packet 8.4 g PO DAILY Discharge Orders: Discharge Order (Routine); Ordered 02/13/23 Ordered By: Nayely Page/Other Patient Handouts: Urinary Tract Infections in Women, UTIs Understanding, Heart Attack Dc Admission Data Admit Date/Time: 02/09/23 01:14 Attending Provider: Rolan Pelaez Admit Provider: Quintin Campos [facility] Other Providers: Quintin Campos Other Interventions: Discharge Summary Assessment (RN) Last Done: 02/13/23 13:10 Supervising Physician Co-Signing Physician Notes Attending attestation Pt seen and examined in concert with Dr. Bay. In agreement with the documented findings as noted in the resident documentation with any exceptions or additions as noted here. Essential resolution of symptoms without present complaint. On examination, S1/S2 nl RRR no MCG. CTAB. Abd NT/ND BS+ve Urinary tract infection - completed course of treatment prior to discharge. Counseling re: recurrent or worsening symptoms Leukocytosis - has been stably elevated throughout without other loci of infection and with prednisone use. Would warrant repeat in outpatient and consideration of further evaluation. Generalized weakness with ambulatory dysfunction - open and engaged with PT PMR - tolerating prednisone 5mg with controlled symptoms Else see resident documentation as noted. Total attending physician time spent with this patient's care on the day of discharge: 35 minutes. Resident Activity Tracking Resident Involvement: Resident Care Provided Care Provided: Adult [facility] Medicine"
--- NOTE | 2023-02-14 11:17 | Coding Query ---
SEPSIS To promote full compliance with coding requirements relating to patient care, physician participation is requested in all cases of varnisher plasticoater uncertainty. Please assist us with the question(s) below: In responding to this query, please exercise your independent professional judgement. The fact that a question is asked does not imply that any particular answer is desired or expected. We appreciate your clarification on this issue. The medical record reflects the following clinical findings: Pt adm with general weakness, ambulatory dysfunction, UTI & NSTEMI. 02/10 progress note documented Sepsis .Please check below the diagnosis, after study that was treated if applicable. Thanks for your help. Be Alvarenga, [facility]. ____ ( )Bacteremia (Nonspecific laboratory finding of bacteria in the blood) Specify Organism ( ) Present on Admission ( ) Not present on admission ( ) Unable to clinically determine ( ) Septicemia (Systemic disease associated with the presence of pathogenic microorganisms in the blood): Specify Organism () Present on Admission () Not present on admission () Unable to clinically determine ( ) Sepsis Specify Organism Specify Associated Condition/Diagnosis ( ) Present on Admission ( ) Not present on admission ( ) Unable to clinically determine ( ) Severe Sepsis (Sepsis associated with acute organ dysfunction) Specify Organism Specify Associated Condition/Diagnosis ( ) Present on Admission ( ) Not present on admission ( ) Unable to clinically determine ( ) Septic Shock (Severe sepsis with acute circulatory failure, unexplained by other causes) ( ) Present on Admission ( ) Not present on admission ( ) Unable to clinically determine ( ) Other, patient has: MTDD
== END 2023-02-13 13:30 | DRG 690 ==
LOC: ED 21:09 → EDINP 02-09 01:14 → SUATTDRO 02-09 01:14 → EDINP 02-09 14:04 → 2E 02-09 17:19

== ENCOUNTER 2023-05-26 22:29 | Inpatient (IN) ==
--- OUTSIDE RECORDS SUMMARY | 2023-05-26 22:33 | External Medical Summary | Summary of Care ---
Author Name Unknown Organization [facility] Address [address] [place] [address] Phone [phone] Care Team Providers Care Watch Repair Technician Name Role Phone Bassam Banks MD Primary Care Provider [phone] Reason for Visit * Reason Comments Follow Up Encounter Details Date Type Department Care Team (Late st Contact Info) Description 05/13/2023 1:30 PM EST Office Visit Cardiology, [facility] [address] [place] [address] Shahla Darling CRNP [address] [facility] [place] [address] Diastolic dysfunction*; Peripheral venous insufficiency; HTN, goal below 140/90 Allergies Active Allergy Reactions Criticality Noted Date Comments Lisinopril 03/24/2002 Marked cough reaction Nitrofurantoin Diarrhea 11/22/2022 Penicillins Low 03/13/2022 Other reaction(s): Diarrhea Pravastatin Sodium 09/28/2015 Elevated LFT's and CK/myalgias Sulfamethoxazole 12/28/2022 Trimethoprim 12/28/2022 documented as of this encounter (statuses as of 05/13/2023) Medications Medication Sig Dispensed Refills Start Date End Date Status ICAPS LUTEIN-ZEAXANTHIN PO TBCR Take 1 Tablet by mouth in the morning. 0 09/09/2006 Active predniSONE 5 MG Oral Tablet Take 1 Tablet by mouth every other day. 0 Active acetaminophen (TYLENOL) 500 MG TabletIndications:abraham es three times daily Take 2 Tablets by mouth in the morning and 2 Tablets at noon and 2 Tablets before bedtime. 0 Active Omeprazole 20 MG Oral Capsule Delayed Release (PriLOSEC) Take 1 Capsule by mouth in the morning and 1 Capsule before bedtime. 30 Cap 2 12/29/2020 Active Torsemide 10 MG Oral Tablet (Demadex)Indications: HTN, goal below 140/90,Diastolic dysfunction TAKE 1 TABLET DAILY 90 Tablet 3 08/27/2022 Active Additional Information Patient taking differently: Daily(AM), Reported on 11/22/2022 Ipratropium [place] 0.03 % Nasal Solution (Atrovent) Administer 2 Sprays into each nostril in the morning and 2 Sprays before bedtime. 30 mL 3 08/30/2022 Active Ezetimibe 10 MG Oral Tablet (Zetia)Indications:Dy slipidemia, goal LDL below 100,Statin intolerance TAKE 1 TABLET DAILY 90 Tablet 3 10/09/2022 Active Allopurinol 100 MG Oral Tablet (Zyloprim) Take 2 Tablets by mouth in the morning. 60 Tablet 5 03/25/2023 Active Veltassa 8.4 GM Oral Packet (Patiromer Sorbitex Calcium)Indications:C hronic kidney disease, stage 4 (severe) (HCC) Take 8.4 g by mouth in the morning. 30 Each 3 04/01/2023 Active Hydroxyurea 500 MG Oral Capsule (Hydrea)Indications:E ssential thrombocythemia (HCC) Take 1 Capsule by mouth every other day. 15 Capsule 2 04/29/2023 Active Additional Information Patient taking differently:500 mg OralDaily(AM), Reported on 05/10/2023 Docusate Sodium 100 MG Oral Capsule (Colace) Take 2 Capsules by mouth in the morning and 2 Capsules before bedtime. 0 Active Aspirin 81 MG Oral Tablet Delayed Release (Aspirin 81) Take 1 Tablet by mouth in the morning. 0 Active documented as of this encounter (statuses as of 05/13/2023) Active Problems Problem Noted Date Diagnosed Date Chronic kidney disease, stage 4 (severe) 022 Overview: Per CKD protocol Atrial ectopy 11/22/2017 Myalgia 02/10/2016 Statin intolerance 10/11/2015 Abnormal EKG 10/11/2015 Thyroid disorder 08/26/2012 Subjective tinnitus 07/14/2012 Sensorineural hearing loss, bilateral 07/14/2012 Sialadenitis 07/14/2012 History of tobacco use 07/14/2012 Chronic rhinitis 07/14/2012 PND (post-nasal drip) 07/14/2012 Laryngitis, chronic 07/14/2012 Pharyngitis, chronic 07/14/2012 Carotid stenosis, non-symptomatic 11/12/2010 Dyslipidemia, goal LDL below 100 05/05/2010 ADVANCE DIRECTIVE INFORMATION 08/06/2006 Overview: Pt will supply a copy of her living will OSTEOARTHROSIS-MULT SITE 10/20/2004 Reflux esophagitis 10/12/2003 CERVICAL DISC DEGEN 03/13/2001 HTN, goal below 140/90 LOC PRIM OSTEOARTH-HAND Esophageal reflux Diaphragmatic hernia documented as of this encounter (statuses as of 05/13/2023) Resolved Problems Problem Noted Date Diagnosed Date Resolved Date Chronic kidney disease, stage 3b 01/16/2021 04/19/2022 Overview: Per CKD protocol Dyslipidemia, goal to be determined 06/27/2009 10/27/2009 Overview: Per Lipid Taxonomy. PURE HYPERCHOLESTEROLEM 10/01/200206/08 Overview: Per Lipid Taxonomy. Dyslipidemia, goal to be determined 06/01/2009 Overview: Per Lipid Taxonomy HTN, goal to be determined 1 07/13/2008 Overview: Per HTN Taxonomy documented as of this encounter (statuses as of 05/13/2023) Immunizations Name Administration Dates Next Due COVID-19 mRNA, LNP-s, No Pre serve, 2-Dose Series (Moderna) 04/10/2021,10/09/2020,09/08/2020 H1N1 2009 Influenza, IM 10/27/2009 Pneumococcal Conjugate Vacc, 13 Valent (Prevnar) 02/14/2015 Pneumococcal Polysaccharide PPV23 (Pneumovax) 06/21/2008 Seasonal Influenza, Quadriva lent Hd, 65+ Yrs 04/07/2021,04/07/2020 Seasonal Influenza, Quadriva lent, No Preserve, IM 03/19/2016 Seasonal Influenza, Split, I IV3, With Preserve, Inj 03/28/2015,03/16/2014,04/07/2013,03/17,03/27/2011,05/05/2010,04/11/2009 ,04/16/2008,05/02/2007,04/30/2006 Seasonal Influenza, Trivalen t, Adjuvanted, 65+ yrs 04/21/2022,04/20/2019 TD, Preservative Free 06/21/2008 Varicella Zoster Vaccine (Adult) 2007 documented as of this encounter Social History Tobacco Use Types Packs/Day Years Used Date Smoking Tobacco: Former Cigarettes Q uit: 07/08/1961 Smokeless Tobacco: Never Tobacco Cessation:Counseling Given: Not Answered Alcohol Use Standard Drinks/Week Comments Yes 0 (1 standard drink = 0.6 oz pur e alcohol) occasional glass of wine Sex and Gender Information Value Date Recorded Sex Assigned at Not on file Gender Identity Not on file Sexual Orientation Not on file Job Start Date Occupation Industry Not on file Not on file Not on file documented as of this encounter Last Filed Vital Signs Vital Sign Reading Time Taken Comments Blood Pressure 114/56 05/13/2023 1:27 PM EST Pulse 88 05/13/2023 1:27 PM EST Temperature - - Respiratory Rate 14 05/13/2023 1:27 PM EST Oxygen Saturation - - Inhaled Oxygen Concentration - - Weight 77.3 kg (170 lb 8 oz) 05/13/2023 1:27 PM EST Height - - Body Mass Index 28.37 08/04/2020 1:51 PM EST documented in this encounter Progress Notes * Shahla Darling CRNP - 05/13/2023 1:30 PM EST Cardiology Outpatient Visit 05/13/[address] 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 Was last evaluated by Dr. Brewer approximately 9 months ago. Today the patient presents feeling well and offers no acute cardiovascular concerns. Denies any exertional chest pain or unusual shortness of breath. No palpitations, lightheadedness or dizziness. Noorthopnea or PND. Lower extremity edema at baseline. Patient is down about 5 lb from her last appointment. No fever, chills, cough, hematochezia, melena, or hemoptysis. She states she is compliant with all medications, and offers no side effects. Monitors BP at home. Notes systolics averaging between 120-140s Currently resides at [place], but planning on moving to the personal care section in the next few months to get help for her . Current Outpatient Medications Medication Sig Dispense Refill ICAPS LUTEIN-ZEAXANTHIN PO TBCR Take 1 Tablet by mouth in the morning. predniSONE 5 MG Oral Tablet Take 1 Tablet by mouth every other day. acetaminophen (TYLENOL) 500 MG Tablet Take 2 Tablets by mouth in the morning and 2 Tablets at noon and 2 Tablets before bedtime. Omeprazole 20 MG Oral Capsule Delayed Release (PriLOSEC) Take 1 Capsule by mouth in the morning and1 Capsule before bedtime. 30 Cap 2 Torsemide 10 MG Oral Tablet (Demadex) TAKE 1 TABLET DAILY (Patient taking differently: daily.) 90 Tablet 3 Ipratropium [place] 0.03 % Nasal Solution (Atrovent) Administer 2 Sprays into each nostril in the morning and 2 Sprays before bedtime. 30 mL 3 Ezetimibe 10 MG Oral Tablet (Zetia) TAKE 1 TABLET DAILY 90 Tablet 3 Allopurinol 100 MG Oral Tablet (Zyloprim) Take 2 Tablets by mouth in the morning. 60 Tablet 5 Veltassa 8.4 GM Oral Packet (Patiromer Sorbitex Calcium) Take 8.4 g by mouth in the morning. 30 Each 3 Hydroxyurea 500 MG Oral Capsule (Hydrea) Take 1 Capsule by mouth every other day. (Patient taking differently: Take 1 Capsule by mouth in the morning.) 15 Capsule 2 Docusate Sodium 100 MG Oral Capsule (Colace) Take 2 Capsules by mouth in the morning and 2 Capsulesbefore bedtime. Aspirin 81 MG Oral Tablet Delayed Release (Aspirin 81) Take 1 Tablet by mouth in the morning. No current facility-administered medications for this visit. Past Medical History: Diagnosis Date Benign neoplasm of colon 02/19/12 adenomatous polyp--rpt 2 years Degeneration of cervical intervertebral disc Diaphragmatic hernia paresophageal Dyslipidemia, goal to be determined Esophageal reflux HTN, goal to be determined Osteoarthrosis involving multiple sites but not generalized Past Surgical History: Procedure Laterality Date BIOPSY OF UTERUS LINING x 3 COLONOSCOPY 09/09 negative- repeat in 10 years COLONOSCOPY 05/04/2014 adenomatous polyps, diverticulosis/[facility] COLONOSCOPY, DIAGNOSTIC (RECTUM) 1988 negative COLONOSCOPY, DIAGNOSTIC (RECTUM) 1994 negative COLONOSCOPY, DIAGNOSTIC (RECTUM) 02/19/2012 adenomatous polyp--rpt in 2 years COLONOSCOPY, DIAGNOSTIC (RECTUM) 05/20/2017 polyps removed not retrieved, diverticulosis/COLONOSCOPY FLEXIBLE PROXIMAL DIAGNOSTIC performed by Jamir Solis MD at END[facility]COPY [facility] COLORECTAL CANCER SCREEN;W/FLE negative flex.sigmoidoscopy DEXA SCAN/BONE MINERAL AXIAL 08/13 -0/73 and + 0.30 readings; repeat in 3 years EGD, FLEXIBLE, DIAGNOSTIC 06/09/2012 UPPER GI ENDOSCOPY DIAGNOSTIC performed by Jamir Solis MD at [facility], REPEAT ENDOSCOPY IN 1 MONTH NO PRE-CANCEROUS CHANGES EGD, FLEXIBLE, DIAGNOSTIC 07/10/2012 UPPER GI ENDOSCOPY DIAGNOSTIC performed by Jamir Solis MD at ENDOSCOPY [facility] EGD, FLEXIBLE, DIAGNOSTIC 09/20/2017 reflux esophagitis, Schatzki ring, hiatal hernia, gastritis, repeat 2 mo/ESOPHAGOGASTRODUODENOSCOPY(EGD), FLEXIBLE, TRANSORAL, DIAGNOSTIC performed by Jamir Solis MD at END[facility]COPY [facility] EGD, FLEXIBLE, DIAGNOSTIC 12/23/2017 hiatal hernia/ESOPHAGOGASTRODUODENOSCOPY (EGD), FLEXIBLE, TRANSORAL, DIAGNOSTIC performed by Pam Villagomez MD at ENDOSCOPY [facility] ESOPHAGOGASTRIC FUNDOPLASTY 01/21/07 Esophageal fundoplication- [facility]- Dr.Stephen Watts GASTRIC MOTILITY STUDY 09/09/06 [place] [facility] [place]/DIVIDE & STRIP GSV/LSV 1971 VARICOSE VEIN " STRIPPING" OTHER 1972 vein stripping THORACOTOMY WITH EXPLORATION 12/12 left side, reduction of paraesophageal hernia and fundoplication UPPER GI ENDOSCOPY 09/04/06 Dr. Capone UPPER GI ENDOSCOPY/EXAM 07/28/03 VASC DUPLEX CAROTID BILAT 11/2010 <50% bilaterally VASC DUPLEX CAROTID BILAT 12/2011 same as 2010- < 50% bilaterally VASC DUPLEX CAROTID BILAT 04/2013 < 50% bilaterally VASC DUPLEX CAROTID BILAT 02/2015 < 50 % bilaterally Social History Tobacco Use Smoking status: Former Types: Cigarettes Quit date: 07/08/1961 Years since quittin.8 Smokeless tobacco: Never Vaping Use Vaping Use: Never used Substance Use Topics Alcohol use: Yes Comment: occasional glass of wine Drug use: No Review of patient's allergies indicates: Allergen Reactions Lisinopril Marked cough reaction Nitrofurantoin Diarrhea Pravastatin Sodium Elevated LFT's and CK/myalgias Sulfamethoxazole Trimethoprim Penicillins Other reaction(s): Diarrhea Review of Systems: See HPI for pertinent positives. All others negative, other than those noted in HPI. Physical Exam BP 114/56 (BP Site: Left Arm, BP Position: Sitting, BP Cuff Size: Regular) | Pulse 88 | Resp 14 | Wt 77.3 kg (170 lb 8 oz) | BMI 28.37 kg/m | BSA 1.88 m General: No acute distress. A+Ox3. HEENT: Normocephalic. Atraumatic. Conjunctiva and sclera clear. NECK: No carotid bruits. No JVD. Carotid upstrokes are brisk. Heart: RRR. S1 and S2 noted without murmur, rubs, gallops. PMI non displaced. Lungs: Clear to auscultation. No wheezes, rhonchi, rales. Abdomen: Normal bowel sounds. Soft. Nontender. No masses or organomegaly. No abdominal bruits. Extremities: Trace BLLE edema. No clubbing or cyanosis. Pulses: radial=2/4, posterior tibial=2/4, dorsalis pedis = 2/4. NEURO: No focal deficits. PSYCH: Normal. Lab data/imaging study review: Echo 09/07/2021 The examination is adequate to evaluate the referral indication. Sinus rhythm in the range of 70-84 bpm was present during the echocardiogram. The LV wall thickness is mildly increased (concentric). The left ventricular wall motion is normal. The qualitative LV ejection fraction is 65-69% (normal). The left atrium is severely enlarged. The left atrial pressure is elevated by Doppler exam. Mild mitral regurgitation is present. There is no evidence of pulmonary hypertension. Compared to the prior study dated 12/05/2016, severe left atrial enlargement is now noted, with Doppler evidence suggestive of elevated left atrial diastolic filling pressure. Impression/Plan: 1. Diastolic dysfunction 2. Peripheral venous insufficiency -Edema multifactorial given diastolic dysfunction and peripheral venous insufficiency. -Symptoms at baseline, weights stable/down. 1. Continue torsemide 10 mg daily 2. Follow a low-sodium diet (less than 2g/2000mg daily). Start daily weights- weigh first thing in the morning after using the bathroom. Should weight increase 3 pounds in 1 day or 5 pounds in 1 week, notify cardiology. Provided patient with a weight log today 3. HTN, goal below 140/90 -Recently very uncontrolled in office, but controlled on home readings (120-140s systolic) -? Questionable degree of white coat hypertension -Follows with nephrology, NGHIA/ARB contraindicated (renal disease and hyperkalemia) 1. BP looks okay today in office-- future considerations of adding low dose coreg vs hydralazine. There are no Patient Instructions on file for this visit. The patient agrees to the above plan and will call with additional questions or concerns. ER with all emergencies advised. Follow-up: Return in about 6 months (around 11/11/2023). | Check-out note: DAPHNE I spent a total of 30 minutes on the date of service in preparation, delivery, and documentation ofthe care provided to Linda Vega excluding any time spent in the performance of separately billed services. NANDA Sloan [facility], Department of Cardiology This chart was completed in part utilizing [employer] Speech Voice Recognition Software. Grammatical errors, random word insertions, prounoun errors, and incomplete sentences are an occasional consequence of this system due to software limitations, ambient noise, and hardware issues. Any formal questions or concerns about the content, text, or information contained within the body of this dictation should be directly addressed to the provider for clarification. documented in this encounter Nursing Notes * Flores Juarez CMA - 05/13/2023 1:24 PM EST Examination Room: 7 Name: Linda Vega Date of : (1935). Reason for Visit: 10M f/u Interim Hospitalization(s): [facility] Feb 2023 fall Problems/Concerns: denies Chest Pain/SOB: denies [facility] Discussed: Not applicable [facility] is a way you can talk to your provider online through e-mail. Would you like to sign up? I can activate it for you? ALREADY ACTIVE Patient was instructed to not get up on the exam table until directed and assisted by their provider; patient is to remain seated in the chair/ wheelchair/ exam table for fall prevention and safety reasons. Patient is aware to have assistance to step down off exam table with personnel. Patient voiced full comprehension of instructions. documented in this encounter Plan of Treatment Upcoming Encounters Date Type Department Care Team (Late st Contact Info) Description 05/16/2023 9:00 AM EST Pharmacy Pharmacy Hematology Oncology [facility] [address] [place] [address] [facility] [place] Hem[facility]c [address] [place] [address] 05/16/2023 1:00 PM EST Laboratory Laboratory, [facility] [address] [place] [id number] [facility] [address] [place] [address] 07/23/2023 3:00 PM EST Office Visit Nephrology, Jerry Mcbride [address] [place] [address] Jessy Smith MD [address] [place] [address] 08/01/2023 11:30 AM EST Office Visit Hematology/Oncology Jerry Mcbride [place] [address] [place] [address] Ana Batres CRNP [address] [place] [address] 08/26/2023 10:00 AM EST Office Visit Rheumatology [facility] [address] [facility] [place], [place] [address] Aurora Montgomery CRNP [address] [facility] [place], [place] [address] 09/24/2023 1:00 PM EDT Office Visit Nephrology, Jerry Mcbride [address] [facility] [place], [place] [address] ZeLynnette uhghes PA-C [address] [facility] [place] [address] Health Maintenance Due Date Last Done Comments Zoster Vaccines (1 of 2) 07/17/2007 2007 DTaP,Tdap,and Td Vaccines (1 - Tdap) 06/22/2008 06/21/2008, 02/22/2000, 11/06/1995, Additional history exists Depression Screening 08/30/2016 08/30/2015 Phosphate 12/29/2021 12/29/2020, 01/03/2015 Albumin/Creatinine Ratio 12/07/2022 12/07/2021, 12/07 PTH 12/07/2022 12/07/2021, 12/07, 07/13/2019 COVID-19 Vaccine ( season) 2023 04/10/2021, 10/09/2020, 09/08/2020 Influenza Vaccine (FLU shot) (#1) 2023 04/21/2022, 04/07/2021, 04/07/2020, Additional history exists Nephrology Referral 03/26/2024 03/26/2023 Hgb 05/09/2024 05/09/2023, 04/08, 04/12/2023, Additional history exists DXA Scan 03/12/2030 03/12/2023, 02/07, 12/31/2011, Additional history exists Pneumococcal Vaccine: 65+ Years Completed 02/14/2015, 06/21/2008, 05/11/2002 GARDASIL-HPV IMMUNIZATION SERIES Aged Out No longer eligible based on patient's age to complete this topic Hepatitis B Aged Out No longer eligi ble based on patient's age to complete this topic MENINGOCOCCAL (MENACTRA/MENVEO) Aged Out No longer eligible based on patient's age to complete this topic documented as of this encounter Medical Devices Not on filedocumented as of this encounter Visit Diagnoses Diagnosis Diastolic dysfunction- Primary Heart disease, unspecified Peripheral venous insufficiency Unspecified venous (peripheral) insufficiency HTN, goal below 140/90 Unspecified essential hypertension documented in this encounter Care Teams Watch Repair Technician Relationship Specialty Start Date End Date Bassam Banks MD [address] [place] [id number] PCP - General Critical Care Medicine 04/25/20 documented as of this encounter
--- OUTSIDE RECORDS SUMMARY | 2023-05-26 22:33 | External Medical Summary | Summary of Care ---
Author Name Unknown Organization [facility] Address [address] [place] [address] Phone [phone] Care Team Providers Care Customer Account Representative Name Role Phone Bassam Banks MD Primary Care Provider [phone] [phone] Reason for Visit * Reason Comments Medication Management Encounter Details Date Type Department Care Team (Late st Contact Info) Description 05/16/2023 9:00 AM [facility] Pharmacy Pharmacy Hematology Oncology [facility] [address] [place], [place] [id number] [facility] Hem/Onc [address] [place], [place] [id number] MPN (myeloproliferative neoplasm) (HCC)* Allergies Active Allergy Reactions Criticality Noted Date Comments Lisinopril 03/24/2002 Marked cough reaction Nitrofurantoin Diarrhea 11/22/2022 Penicillins Low 03/13/2022 Other reaction(s): Diarrhea Pravastatin Sodium 09/28/2015 Elevated LFT's and CK/myalgias Sulfamethoxazole 12/28/2022 Trimethoprim 12/28/2022 documented as of this encounter (statuses as of 05/15/2023) Medications Medication Sig Dispensed Refills Start Date [...] taking differently: Daily(AM), Reported on 11/22/2022 Ipratropium [place] 0.03 % Nasal Solution (Atrovent) Administer 2 [...] the morning. 30 Each 3 04/01/2023 Active Docusate Sodium 100 MG Oral Capsule (Colace) Take 2 Capsules by mouth in the morning and 2 Capsules before bedtime. 0 Active Aspirin 81 MG Oral Tablet Delayed Release (Aspirin 81) Take 1 Tablet by mouth in the morning. 0 Active Hydroxyurea 500 MG Oral Capsule (Hydrea)Indications:E ssential thrombocythemia (HCC) Take one 500mg cap by mouth daily Saturday through Saturday and two 500mg caps (1000mg total) by mouth once a day on Saturday and Saturday 40 Capsule 2 05/15/2023 Active documented as of this encounter (statuses as of 05/15/2023) Active Problems Problem Noted Date Diagnosed Date [...] as of this encounter (statuses as of 05/15/2023) Resolved Problems Problem Noted Date Diagnosed Date [...] as of this encounter (statuses as of 05/15/2023) Immunizations Name Administration Dates Next Due COVID-19 [...] Cigarettes Q uit: 07/08/1959 Smokeless Tobacco: Never Alcohol Use Standard Drinks/Week Comments Yes 0 (1 standard drink = 0.6 oz pur e alcohol) occasional glass of wine Sex and Gender Information Value Date Recorded Sex Assigned at Not on file Gender Identity Not on file Sexual Orientation Not on file Job Start Date Occupation Industry Not on file Not on file Not on file documented as of this encounter Progress Notes * Susana Castañeda, [facility] - 05/15/2023 2:19 PM EST MEDICATION THERAPY MANAGEMENT HYDROXYUREA TREATMENT PROGRESS NOTE Linda Vega [id number] Patient Phone Numbers Pt is hearing impaired. Speak loud Preferred Lab: [facility] Pharmacy: Sus[facility] in [place] Communication: Spoke to: Patient Treatment: Medication: Hydroxyurea (Hydrea) Indication/Staging/Diagnosis Code: MPN, JAK2+ Dose: 500mg daily (DI 05/10/23) Administration: +/- food Start Date: 05/02/23 PLT goal: 400-500K (while keeping ANC > 1500) Primary Hull Inspector/Oncologist: Yuniel Batres NP Preventative meds: Allopurinol 200mg daily Relevant Chronic Medications: Category Medications Pertinent Notes Anticoagulation ASA every other day Recommended by hem Interval History: No concerns, tolerating therapy well Changes to medication list since last visit? No Assessment and Plan: PLT > 1000K but declining WBC elevated but declining H/H stable Increase hydrea to 500mg M-F and 1000mg Sat/Sun Pt repeated instructions back with understanding RX sent to pharmacy Repeat labs in 1 week (scheduled 05/23 @1300) Assessment of compliance: compliant Assessment of adverse effects attributed to drug therapy: Impaired wound healing- absent Ulcers (skin or oral) - absent Nausea/vomiting - absent Dose adjustment needed based on lab or adverse drug reaction? Yes, dose increase Follow up: 1 week Susana Castañeda, PharmD, BCOP Clinical Pharmacist, [facility] Oral Chemotherapy [facility] 05/15/2023, 2:29 PM Monitoring Parameters: Estimated CrCl Hepatitis panel Latest Reference Range & Units 05/09/23 15:36 Hepatitis B Surface Antigen Negative Negative Hepatitis B Surface Antibody, Quantitative mIU/mL <3.5 HEPATITIS B SURFACE ANTIBODY Rpt Hepatitis B Surface Antibody, Interpretation NOT immune to Hepatitis B Virus Hepatitis B Surface Antibody, Qualitative Negative Hepatitis B Core Antibodies IgG and IgM Negative Negative test N/A - pt postmenopausal Suggested lab monitoring Suggested labs (antineoplastic): CBCd weekly until stable, then monthly; CMP q3-4mon; status prior to initiation (if of reproductive potential) Treatment Parameters PLT 400-500K, ANC > 1500 Pertinent Labs: Latest Reference Range & Units 04/29/23 08:55 05/09/23 15:36 05/15/23 12:52 WBC 4.00 - 10.80 K/uL 40.10 (HH) 32.68 (H) 24.09 (H) HGB 12.0 - 15.3 g/dL 13.0 13.0 12.5 HCT 36.0 - 45.2 % 41.5 40.8 40.2 MCV 81.5 - 97.5 fL 90.0 90.7 92.2 PLT 140 - 400 K/uL 827 (H) 1,231 (HH) 1,024 (HH) Absolute Neutrophils 1.80 - 7.70 K/uL 35.69 (H) 28.76 (H) 19.51 (H) Time Spent on Encounter: 11 - 15 minutes Encounter Group: Hematology Encounter Interventions Item Category: Oral Chemotherapy Hydroxurea Problem/Rationale: Effectiveness: Dosage too low - Dose too low Pharmacist Intervention(s): Care coordination, Dose increased, Lab monitoring, Medication prescribed, and Toxicity monitoring Magnitude of Intervention: Modification of medication for asymtomatic patients (Level 2) documented in this encounter Plan of Treatment Upcoming Encounters Date Type Department Care Team (Late st Contact Info) Description 05/23/2023 9:00 AM EST Pharmacy Pharmacy Hematology Oncology [facility] [address] [place] [address] [facility] [place] Hem/Onc [address] [place] [address] 05/23/2023 1:00 PM EST Laboratory Laboratory, [facility] [place] [facility] [phone] [facility] [address] 07/23/2023 3:00 PM EST Office Visit Nephrology, [facility] 200 [facility] [place] [address] Jessy Smith MD 200 [facility] [place] [address] 08/01/2023 11:30 AM EST Office Visit Hematology/Oncology [facility] [place] [address] [place] [address] Ana Batres CRNP 400 [facility] [place] [address] 08/26/2023 10:00 AM EST Office Visit Rheumatology [place] [address] [facility] [place] [address] Aurora Montgomery CRNP 40[address] [facility] [place] [address] 09/24/2023 1:00 PM EDT Office Visit Nephrology, [facility] [address] [place] [address] Lynnette Herring PA-C 200 [facility] [place] [address] Health Maintenance Due Date Last Done Comments [...] history exists Nephrology Referral 03/26/2024 03/26/2023 Hgb 05/15/2024 05/15/2023, 08/2022, 04/29/2023, Additional history exists DXA Scan 03/12/2030 03/12/2023, 08/3 07/2020, 12/31/2011, Additional history exists Pneumococcal Vaccine: 65+ [...] as of this encounter Visit Diagnoses Diagnosis 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
--- OUTSIDE RECORDS SUMMARY | 2023-05-26 22:33 | External Medical Summary | Summary of Care ---
Author Name Unknown Organization [facility] Address [address] [place] [address] Phone [phone] Care Team Providers Care Double End Sewer Name Role Phone Bassam Banks MD Primary Care Provider [phone] [phone] Reason for Visit * Reason Comments Outpatient Testing Encounter Details Date Type Department Care Team (Latest Contact Info) Description 05/09/2023 3:30 PM EDT Laboratory Laboratory, [facility] [address] [place] [address] [facility] [address] [place] [address] Essential thrombocythemia (HCC); Screening for viral disease Allergies Active Allergy Reactions Criticality Noted Date Comments Lisinopril 03/24/2002 Marked cough reaction Nitrofurantoin Diarrhea 11/22/2022 Penicillins Low 03/13/2022 Other reaction(s): Diarrhea Pravastatin Sodium 09/28/2015 Elevated LFT's and CK/myalgias Sulfamethoxazole 12/28/2022 Trimethoprim 12/28/2022 documented as of this encounter (statuses as of 05/09/2023) Medications Medication Sig Dispensed Refills Start Date End Date Status ICAPS LUTEIN-ZEAXANTHIN PO TBCR Take by mouth . 0 09/09/2006 Active predniSONE 5 MG Oral [...] taking differently: Daily(AM), Reported on 11/22/2022 Ipratropium [place] 0.03 % Nasal Solution (Atrovent) Administer 2 [...] other day. 15 Capsule 2 04/29/2023 Active Docusate Sodium 100 MG Oral Capsule (Colace) Take 2 Capsules by mouth in the morning and 2 Capsules at noon and 2 Capsules before bedtime. 0 Active Aspirin 81 MG Oral Tablet Delayed Release (Aspirin 81) Take 1 Tablet by mouth every other day. 0 Active documented as of this encounter (statuses as of 05/09/2023) Active Problems Problem Noted Date Diagnosed Date [...] as of this encounter (statuses as of 05/09/2023) Resolved Problems Problem Noted Date Diagnosed Date [...] as of this encounter (statuses as of 05/09/2023) Immunizations Name Administration Dates Next Due COVID-19 [...] on file documented as of this encounter Plan of Treatment Upcoming Encounters Date Type Department Care Team (Late st Contact Info) Description 05/10/2023 9:00 AM EDT Pharmacy Pharmacy Hematology Oncology [facility] [address] [place] [address] [facility] Hem/Onc [address] [place] [address] 05/13/2023 1:30 PM EST Office Visit Cardiology, [facility] 132 [facility] [place] [address] Shahla Darling CRNP [address] [place] [address] 07/23/2023 3:00 PM EST Office Visit Nephrology, [facility] [address] [place] [address] Jessy Smith MD [address] [place] [address] 08/01/2023 11:30 AM EST Office Visit Hematology/Oncology [facility] [address] [place] [address] Ana Batres CRNP [address] [place] [address] 08/26/2023 10:00 AM EST Office Visit Rheumatology [facility] [address] [place] [address] Aurora Montgomery CRNP [address] [place] [address] 09/24/2023 1:00 PM EDT Office Visit Nephrology, [facility] [address] [place] [address] Lynnette Herring PA-C 200 [facility] [place] [address] Pending Results Name Type Priority Associated Diagnoses Date /Time CBC WITH WBC DIFFERENTIAL Lab STAT Essential thrombocythemia (HCC) 05/09/2023 3:36 PM EDT HEPATITIS B SURFACE ANTIGEN Lab Routine Screening for viral disease 05/09/2023 3:36 PM EDT HEPATITIS B CORE ANTIBODIES IGG AND IGM Lab Routine Screening for viral disease 05/09/2023 3:36 PM EDT HEPATITIS B SURFACE ANTIBODY Lab Routine Screening for viral disease 05/09/2023 3:36 PM EDT COMPREHENSIVE METABOLIC PANEL Lab STAT Essential thrombocythemia (HCC) 05/09/2023 3:36 PM EDT CBC Lab STAT Essential thrombocythemia (HCC) 05/09/2023 3:36 PM EDT DIFFERENTIAL, AUTOMATED Lab STAT Essential thrombocythemia (HCC) 05/09/2023 3:36 PM EDT Health Maintenance Due Date Last Done Comments [...] history exists Nephrology Referral 03/26/2024 03/26/2023 Hgb 04/29/2024 04/29/2023, 12/2022, 03/22/2023, Additional history exists DXA Scan 03/12/2030 03/12/2023, [...] as of this encounter Visit Diagnoses Diagnosis Essential thrombocythemia (HCC) Essential thrombocythemia Screening for viral disease Special screening examination for unspecified viral disease documented in this encounter Care Teams Double End Sewer Relationship Specialty Start Date End Date Bassam Banks MD [address] [place] [address] PCP - General Critical Care Medicine 04/25/20 documented as of this encounter
--- OUTSIDE RECORDS SUMMARY | 2023-05-26 22:33 | External Medical Summary ---
Author Name Unknown Address Unknown Organization [facility] [address] [place] [address] Laboratory Report Ordering Provider Test Date Status AMSON ELISE 05/15/2023 12:52:22 Final Observation Date Value Abnormality Reference (Units ) Status BUN 05/15/2023 12:52:22 45 Above high normal 6-20 (mg/dL) Final Creatinine 05/15/2023 12:52:22 1.5 Above high normal 0.5-1.0 (mg/dL) Final Glomerular filtration rate/1.73 sq M.predicted [Volume Rate/Area] in Serum, Plasma or Blood by Creatinine-based formula (CKD-EPI) 05/15/2023 12:52:22 35 Below low normal >=60 (mL/min) Final eGFR is calculated based on the CKD-EPI 2020 equation SODIUM 05/15/2023 12:52:22 142 135-146 (m mol/L) Final Potassium 05/15/2023 12:52:22 3.7 3.5-5.1 (m mol/L) Final Cl 05/15/2023 12:52:22 106 98-107 (mm ol/L) Final CO2 05/15/2023 12:52:22 20 Below low normal 22- 32 (mmol/L) Final Anion gap 05/15/2023 12:52:22 16 Above high normal 7- 15 (mmol/L) Final Glucose 05/15/2023 12:52:22 143 Above high normal 70 -120 (mg/dL) Final Albumin 05/15/2023 12:52:22 4.6 3.8-5.0 (g /dL) Final AST (Aspartate aminotransferase) 05/15/2023 12:52:22 24 10-35 (U/L) Fin al Alk Phos 05/15/2023 12:52:22 74 35-130 (U/ L) Final Bilirubin, Total 05/15/2023 12:52:22 0.6 <=1 .2 (mg/dL) Final Calcium 05/15/2023 12:52:22 9.9 8.4-10.2 ( mg/dL) Final Protein 05/15/2023 12:52:22 7.8 6.0-8.3 (g /dL) Final ALT (Alanine aminotransferase) 05/15/2023 12:52:22 11 10-35 (U/L) Cristian ren Performing Location [facility] [place] [address] [facility] [address]
--- OUTSIDE RECORDS SUMMARY | 2023-05-26 22:33 | External Medical Summary ---
Author Name Unknown Address Unknown Organization [facility] [address] [place] [address] Laboratory Report Ordering Provider Test Date Status MASON ELISE 05/15/2023 12:52:22 Final Observation Date Value Abnormality Reference (Units ) Status SYNC LEUKOCYTES IN BLOOD BY AUTOMATED COUNT 05/15/2023 12:52:22 24.09 Above high normal 4.00-10.80 (K/uL) Final Neutrophils/100 leukocytes in Blood by Manual count 05/15/2023 12:52:22 81.0 Above high normal 40.0-75.0 (%) Final Lymphocytes/100 leukocytes in Blood by Manual count 05/15/2023 12:52:22 8.0 Below low normal 18.0-42.0 (%) Final Monocytes/100 leukocytes in Blood by Manual count 05/15/2023 12:52:22 8.0 1.0-11.0 (%) Final Eosinophils/100 leukocytes in Blood by Manual count 05/15/2023 12:52:22 2.0 0.0-6.0 (%) Final Metamyelocytes/100 leukocytes in Blood by Manual count 05/15/2023 12:52:22 1.0 Above high normal <=0.0 (%) Final Neutrophils [#/volume] in Blood by Manual count 05/15/2023 12:52:22 19.51 Above high normal 1.80-7.70 (K/uL) Final Lymphocytes [#/volume] in Blood by Manual count 05/15/2023 12:52:22 1.93 1.00-4.80 (K/uL) Final Monocytes [#/volume] in Blood by Manual count 05/15/2023 12:52:22 1.93 Above high normal 0.00-1.10 (K/uL) Final Eosinophils [#/volume] in Blood by Manual count 05/15/2023 12:52:22 0.48 0.00-0.70 (K/uL) Final Metamyelocytes [#/volume] in Blood by Manual count 05/15/2023 12:52:22 0.24 Above high normal <=0.00 (K/uL) Final Nucleated erythrocytes/100 leukocytes [Ratio] in Blood by Automated count 05/15/2023 12:52:22 Final Neutrophils.hypersegmen nacho [Presence] in Blood by Light microscopy 05/15/2023 12:52:22 Present Abnormal None Seen Final Performing Location [facility] [place] [address] [facility] [address]
--- OUTSIDE RECORDS SUMMARY | 2023-05-26 22:33 | External Medical Summary | Summary of Care ---
Author Name Unknown Organization [facility] Address [address] [place] [address] Phone [phone] Care Team Providers Care Engineering Professor Name Role Phone Bassam Banks MD Primary Care Provider [phone] Reason for Visit * Reason Comments Outpatient Testing Encounter Details Date Type Department Care Team (Latest Contact Info) Description 2023 1:40 PM EST Laboratory Laboratory, [facility] [address] [place] [phone] [facility] [address] [place] [address] Essential thrombocythemia (HCC) Allergies Active Allergy Reactions Criticality Noted Date Comments Lisinopril 03/24/2002 Marked cough reaction Nitrofurantoin Diarrhea 11/22/2022 Penicillins Low 03/13/2022 Other reaction(s): Diarrhea Pravastatin Sodium 09/28/2015 Elevated LFT's and CK/myalgias Sulfamethoxazole 12/28/2022 Trimethoprim 12/28/2022 documented as of this encounter (statuses as of 2023) Medications Medication Sig Dispensed Refills Start Date [...] taking differently: Daily(AM), Reported on 11/22/2022 Ipratropium [place] 0.03 % Nasal Solution (Atrovent) Administer 2 [...] as of this encounter (statuses as of 2023) Active Problems Problem Noted Date Diagnosed Date [...] as of this encounter (statuses as of 2023) Resolved Problems Problem Noted Date Diagnosed Date [...] as of this encounter (statuses as of 2023) Immunizations Name Administration Dates Next Due COVID-19 [...] 9:00 AM EST Pharmacy Pharmacy Hematology Oncology [place] [address] [place] [address] Gm, [facility] Hem/Onc [address] [place] [address] 05/23/2023 1:00 PM EST [facility] [phone] Syed Campuzano [address] [facility] [place] [address] 07/23/2023 3:00 PM EST Office Visit Nephrology, [facility] [address] [place] [address] Jessy Smith MD [address] [place] [address] 08/01/2023 11:30 AM EST Office Visit Hematology/Oncology [facility] [place] 200 [facility] [place] [address] Ana Batres CRNP [address] [place] [address] 08/26/2023 10:00 AM EST Office Visit Rheumatology [facility] [place] [address] [place] [address] Aurora Montgomery CRNP [address] [employer] [place] [address] 09/24/2023 1:00 PM EDT Office Visit Nephrology, [facility] 200 [facility] [place] [address] ZeLynnette hughes PA-C 200 [facility] [place] [address] Pending Results Name Type Priority Associated Diagnoses Date /Time COMPREHENSIVE METABOLIC PANEL Lab STAT Essential thrombocythemia (HCC) 2023 1:27 PM EST Health Maintenance Due Date Last Done Comments [...] exists Nephrology Referral 03/26/2024 03/26/2023 Hgb 05/15/2024 2023, 02/2023, 05/09/2023, Additional history exists DXA Scan 03/12/2030 03/12/2023, [...] Not on filedocumented as of this encounter Procedures Procedure Name Priority Date/Time Associated Diagnosis Comments DIFFERENTIAL, AUTOMATED STAT 2023 1:27 PM EST Essential thrombocythemia (HCC) CBC STAT 2023 1:27 PM EST Essential thrombocythemia (HCC) CBC STAT 2023 1:27 PM EST Essential thrombocythemia (HCC) documented in this encounter Results * (ABNORMAL) DIFFERENTIAL, AUTOMATED (2023 1:27 PM EST) WBC 20.56(H) 4.00 - 10.80 K/uL 2023 1:32 PM EST [facility] [place] [address] Neutrophils % 87.2(H) 40.0 - 75.0 % 2023 1:32 PM EST [facility] [place] [address] Lymphocytes % 4.8(L) 18.0 - 42.0 % 2023 1:32 PM EST [facility] [place] [address] Monocytes % 5.9 1.0 - 11.0 % 2023 1:32 PM EST [facility] [place] [address] Eosinophils % 1.8 0.0 - 6.0 % 2023 1:32 PM EST [facility] [place] [address] Basophils % 0.3 0.0 - 2.0 % 2023 1:32 PM EST [facility] [place] [address] Absolute Neutrophils 17.91(H) 1.80 - 7.70 K/uL 2023 1:32 PM EST [facility] [place] [address] Absolute Lymphocytes 0.99(L) 1.00 - 4.80 K/ul 2023 1:32 PM EST [facility] [place] [address] Absolute Monocytes 1.21(H) 0.00 - 1.10 K/uL 2023 1:32 PM EST [facility] [place] [address] Absolute Eosinophils 0.38 0.00 - 0.70 K/uL 2023 1:32 PM EST [facility] [place] [address] Absolute Basophils 0.07 0.00 - 0.20 K/uL 2023 1:32 PM EST [facility] [place] [facility] Blood Venous blood specimen / Unknown Venipuncture / Unknown 2023 1:27 PM EST 2023 1:27 PM EST Ana VEE LAB BLOOD ORDER [facility] [address] [place] [address] * (ABNORMAL) CBC (2023 1:27 PM EST) WBC 20.56(H) 4.00 - 10.80 K/uL 2023 1:32 PM EST [facility] [place] [address] RBC 4.18 3.85 - 5.15 M/uL 2023 1:32 PM EST [facility] [place] [address] HGB 12.2 12.0 - 15.3 g/dL 2023 1:32 PM EST [facility] [place] [address] HCT 38.6 36.0 - 45.2 % 2023 1:32 PM EST [facility] [place] [address] MCV 92.3 81.5 - 97.5 fL 2023 1:32 PM EST [facility] MCH 29.2 27.0 - 34.0 pg 2023 1:32 PM EST [facility] [place] [facility] MCHC 31.6 32.0 - 36.0 g/dL 2023 1:32 PM EST [facility] RDW 19.4 11.5 - 15.5 % 2023 1:32 PM EST [facility] [place] [address] PLT 858(H) 140 - 400 K/uL 2023 1:32 PM EST [facility] MPV 9.1 6.6 - 11.1 fL 2023 1:32 PM EST [facility] Blood Venous blood specimen / Unknown Venipuncture / Unknown 2023 1:27 PM EST 2023 1:27 PM EST Ana VEE LAB BLOOD ORDER [facility] [place] [address] [facility] [place] [address] documented in this encounter Visit Diagnoses Diagnosis Essential thrombocythemia (HCC) Essential thrombocythemia documented in this encounter Care Teams Engineering Professor Relationship Specialty Start Date End Date Bassam Banks MD [address] [place] [id number] PCP - General Critical Care Medicine 04/25/20 documented as of this encounter
--- OUTSIDE RECORDS SUMMARY | 2023-05-26 22:33 | External Medical Summary | Summary of Care ---
Author Name Unknown Organization [facility] Address [address] [place] [address] Phone [phone] Care Team Providers Care Equipment Man Name Role Phone Bassam Banks MD Primary Care Provider [phone] [phone] Reason for Visit * Reason Onset Date Comments Medication Refill 05/15/2023 Encounter Details Date Type Department Care Team (Late st Contact Info) Description 05/15/2023 Refill Hematology/Oncology [facility] 200 [facility] [place] [address] Ana Batres CRNP 400 [place] [address] Essential thrombocythemia (HCC) Allergies Active Allergy Reactions [...] day. 0 Active acetaminophen (TYLENOL) 500 MG TabletIndications:ta kes three times daily Take 2 Tablets by mouth in the morning and 2 Tablets at noon and 2 Tablets before bedtime. 0 Active Omeprazole 20 MG Oral Capsule Delayed Release (PriLOSEC) Take 1 Capsule by mouth in the morning and 1 Capsule before bedtime. 30 Cap 2 12/29/2020 Active Torsemide 10 MG Oral Tablet (Demadex)Indications :HTN, goal below 140/90,Diastolic dysfunction TAKE 1 TABLET DAILY 90 Tablet 3 08/27/2022 Active Additional Information Patient taking differently: Daily(AM), Reported on 11/22/2022 Ipratropium [place] 0.03 % Nasal Solution (Atrovent) Administer 2 Sprays into each nostril in the morning and 2 Sprays before bedtime. 30 mL 3 08/30/2022 Active Ezetimibe 10 MG Oral Tablet (Zetia)Indications:D yslipidemia, goal LDL below 100,Statin intolerance TAKE 1 TABLET DAILY 90 Tablet 3 10/09/2022 Active Allopurinol 100 MG Oral Tablet (Zyloprim) Take 2 Tablets by mouth in the morning. 60 Tablet 5 03/25/2023 Active Veltassa 8.4 GM Oral Packet (Patiromer Sorbitex Calcium)Indications: Chronic kidney disease, stage 4 (severe) (HCC) Take [...] 0 Active Hydroxyurea 500 MG Oral Capsule (Hydrea)Indications: Essential thrombocythemia (HCC) Take one 500mg cap by mouth daily Saturday through Saturday and two 500mg caps (1000mg total) by mouth once a day on Saturday and Saturday 40 Capsule 2 05/15/2023 Active Hydroxyurea 500 MG Oral Capsule (Hydrea)Indications: Essential thrombocythemia (HCC) Take 1 Capsule by mouth every other day. 15 Capsule 2 04/29/2023 05/15/20 23 Discontinu ed(Refill) documented as of this encounter (statuses as [...] Lipid Taxonomy HTN, goal to be determined 07/13/2008 Overview: Per HTN Taxonomy documented as [...] on file documented as of this encounter Miscellaneous Notes * Telephone Encounter - Susana Castañeda RPh - 05/15/2023 2:21 PM EST Hydrea RX per 05/16 [facility] encounter documented in this encounter Plan of Treatment Upcoming Encounters Date Type Department Care Team (Late st Contact Info) Description 05/16/2023 9:00 AM EST Pharmacy Pharmacy Hematology Oncology [address] [address] [facility] Hem/Onc [facility] [place] [address] MPN (myeloproliferative neoplasm) (HCC)* 05/23/2023 9:00 AM EST Pharmacy Pharmacy Hematology Oncology [facility] [place] [address] [place] [address] [facility] Hem/Onc [address] [place] [address] 05/23/2023 1:00 PM EST Laboratory Laboratory, [facility] [address] [place] [address] [facility] [address] [place] [address] 07/23/2023 3:00 PM EST Office Visit Nephrology, [facility] [address] [place] [address] Jessy Smith MD 200 [facility] [place] [address] 08/01/2023 11:30 AM EST Office Visit Hematology/Oncology [facility] [place] 200 [facility] [place] [place] [address] Ana Batres CRNP 400 [facility] [place] [address] 08/26/2023 10:00 AM EST Office Visit Rheumatology [place] [id number] [facility] [place] [address] Aurora Montgomery CRNP 2520 [facility] [place] [address] 09/24/2023 1:00 PM EDT Office Visit Nephrology, [facility] [address] [place] [address] Lynnette Herring PA-C [address] [place] [address] Health Maintenance Due Date Last Done Comments [...] Nephrology Referral 03/26/2024 03/26/2023 Hgb 05/15/2024 05/15/2023, 11/0 08/2022, 04/29/2023, Additional history exists DXA Scan [...] Diagnoses Diagnosis Essential thrombocythemia (HCC) Essential thrombocythemia 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
--- OUTSIDE RECORDS SUMMARY | 2023-05-26 22:33 | External Medical Summary | Summary of Care ---
Author Name Unknown Organization [facility] Address [address] [place] [address] Phone [phone] Care Team Providers Care Merchandise Manager Name Role Phone Bassam Banks MD Primary Care Provider [phone] [phone] Reason for Visit * Reason Onset Date Comments Medication Refill 05/15/2023 Encounter Details Date Type Department Care Team (Late st Contact Info) Description 05/15/2023 Refill Hematology/Oncology [facility] 200 [facility] [place] [address] Ana Batres CRNP 400 [place] [address] Essential thrombocythemia (HCC) Allergies Active [...] taking differently: Daily(AM), Reported on 11/22/2022 Ipratropium [place] 0.03 % Nasal Solution (Atrovent) Administer 2 [...] 2:21 PM EST Hydrea RX per 05/16 [facility] encounter documented in this encounter Plan of Treatment Upcoming Encounters Date Type Department Care Team (Late st Contact Info) Description 05/16/2023 9:00 AM EST Pharmacy Pharmacy Hematology Oncology [address] [address] [facility] Hem/Onc [facility] [place] [address] MPN (myeloproliferative neoplasm) (HCC)* 05/23/2023 1:00 PM EST Laboratory Laboratory, [facility] 132 [facility], [place] [phone] Syed Campuzano 132 [facility], [place] [address] 07/23/2023 3:00 PM EST Office Visit Nephrology, [facility] 200 [facility] [place], [place] [address] Jessy Smith MD 200 [facility] [place], [place] [address] 08/01/2023 11:30 AM EST Office Visit Hematology/Oncology [facility] 200 [facility] [place], [place] [address] Ana Batres CRNP 400 [place] [address] 08/26/2023 10:00 AM EST Office Visit Rheumatology [facility] 2520 [facility] [place], [place] [address] Aurora Montgomery CRNP 2520 [facility] [place], [place] [address] 09/24/2023 1:00 PM EDT Office Visit Nephrology, [facility] 200 [facility] [place], [place] [address] Lynnette Herring PA-C 200 [facility] [place], [place] [address] Health Maintenance Due Date Last Done Comments [...] tissues documented in this encounter Care Teams Merchandise Manager Relationship Specialty Start Date End Date Bassam Banks MD [address] [place] [address] PCP - General Critical Care Medicine 04/25/20 documented as of this encounter
--- OUTSIDE RECORDS SUMMARY | 2023-05-26 22:33 | External Medical Summary | Summary of Care ---
Author Name Unknown Organization [facility] Address [address] [place] [address] Phone [phone] Care Team Providers Care Open Hearth Worker Name Role Phone Bassam Banks MD Primary Care Provider [phone] [phone] Reason for Visit * Reason Comments Medication Management Encounter Details Date Type Department Care Team (Late st Contact Info) Description 05/10/2023 9:00 AM EDT Pharmacy Pharmacy Hematology Oncology [facility] [address] [place], [place] [id number] [facility] Hem/Onc [address] [place], [place] [id number] MPN (myeloproliferative neoplasm) (HCC)* Allergies Active Allergy Reactions Criticality Noted Date Comments Lisinopril 03/24/2002 Marked cough reaction Nitrofurantoin Diarrhea 11/22/2022 Penicillins Low 03/13/2022 Other reaction(s): Diarrhea Pravastatin Sodium 09/28/2015 Elevated LFT's and CK/myalgias Sulfamethoxazole 12/28/2022 Trimethoprim 12/28/2022 documented as of this encounter (statuses as of 05/10/2023) Medications Medication Sig Dispensed Refills Start Date [...] taking differently: Daily(AM), Reported on 11/22/2022 Ipratropium [place] 0.03 % Nasal Solution (Atrovent) Administer 2 [...] as of this encounter (statuses as of 05/10/2023) Active Problems Problem Noted Date Diagnosed Date [...] as of this encounter (statuses as of 05/10/2023) Resolved Problems Problem Noted Date Diagnosed Date [...] as of this encounter (statuses as of 05/10/2023) Immunizations Name Administration Dates Next Due COVID-19 [...] this encounter Progress Notes * Susana Castañeda, [facility] - 05/10/2023 8:06 AM EDT MEDICATION THERAPY MANAGEMENT HYDROXYUREA TREATMENT PROGRESS NOTE Linda Vega [id number] Patient Phone Numbers Pt is hearing impaired. Speak loud Preferred Lab: [facility] Pharmacy: [facility] in [place] Communication: Spoke to: Patient Treatment: Medication: Hydroxyurea (Hydrea) Indication/Staging/Diagnosis Code: MPN, JAK2+ Dose: 500mg daily (DI 05/10/23) Administration: +/- food Start Date: 05/02/23 PLT goal: 400-500K (while keeping ANC > 1500) Primary Security Assurance Specialist/Oncologist: Yuniel Batres NP Preventative meds: Allopurinol 200mg daily Relevant Chronic Medications: Category Medications Pertinent Notes Anticoagulation ASA every other day Recommended by hem Interval History: No concerns, tolerating therapy well Changes to medication list since last visit? No Assessment and Plan: Hepatitis B panel unremarkable - no further action needed PLT increasing to > 1000K WBC elevated but declining H/H stable Increase hydrea to 500mg daily Pt repeated instructions back with understanding Med rec updated - will send updated RX once stable dose established Repeat labs in 1 week (scheduled 05/16 @1300) Assessment of compliance: compliant Assessment of adverse effects attributed to drug therapy: Impaired wound healing- absent Ulcers (skin or oral) - absent Nausea/vomiting - absent Dose adjustment needed based on lab or adverse drug reaction? Yes, dose increase Follow up: 1 week Susana Castañeda, PharmD, BCOP Clinical Pharmacist, [facility] Oral Chemotherapy [facility] 05/10/2023, 11:08 AM Monitoring Parameters: Estimated CrCl Hepatitis panel Latest [...] Pertinent Labs: Latest Reference Range & Units 04/12/23 11:57 04/29/23 08:55 05/09/23 15:36 WBC 4.00 - 10.80 K/uL 26.98 (H) 40.10 (HH) 32.68 (H) HGB 12.0 - 15.3 g/dL 11.9 (L) 13.0 13.0 HCT 36.0 - 45.2 % 38.4 41.5 40.8 MCV 81.5 - 97.5 fL 91.6 90.0 90.7 PLT 140 - 400 K/uL 887 (H) 827 (H) 1,231 (HH) Absolute Neutrophils 1.80 - 7.70 K/uL 20.50 (H) 35.69 (H) 28.76 (H) Time Spent on Encounter: 6 - 10 minutes Encounter Group: Hematology Encounter Interventions Item Category: Oral Chemotherapy Hydroxurea Problem/Rationale: Effectiveness: Dosage too low - Dose too low Pharmacist Intervention(s): Care coordination, Dose increased, Lab monitoring, Medication reconciliation, and Toxicity monitoring Magnitude of Intervention: Modification of medication for asymtomatic patients (Level 2) documented in this encounter Plan of Treatment Upcoming Encounters Date Type Department Care Team (Late st Contact Info) Description 05/13/2023 1:30 PM EST Office Visit Cardiology, [facility] 132 [place] [address] Shahla Darling CRNP 132 [facility] [place] [address] 05/16/2023 9:00 AM EST Pharmacy Pharmacy Hematology Oncology [facility] [address] [place] [address] [facility] Hem/Onc [facility] [place] [address] 05/16/2023 1:00 PM EST Laboratory Laboratory, [facility] [address] [place] [phone] [facility] 132 [place] [address] 07/23/2023 3:00 PM EST Office Visit Nephrology, [facility] [place] [address] [place] [address] Jessy Smith MD [address] [place] [address] 08/01/2023 11:30 AM EST Office Visit Hematology/On[facility] [address] [place] [address] Ana Batres CRNP 400 [facility] [place] [id number] 08/26/2023 10:00 AM EST Office Visit Rheumatology [address] [place], [place] [address] Aurora Montgomery CRNP [address] [place] [address] 09/24/2023 1:00 PM EDT Office Visit Nephrology, Jerry [place]br[facility] 200 [facility] [place] [address] ZeLynnette hughes PA-C 200 [facility] [place] [address] Health Maintenance Due Date Last Done Comments [...] tissues documented in this encounter Care Teams Open Hearth Worker Relationship Specialty Start Date End Date Bassam Banks MD [address] [place] [address] PCP - General Critical Care Medicine 04/25/20 documented as of this encounter
--- OUTSIDE RECORDS SUMMARY | 2023-05-26 22:33 | External Medical Summary | Summary of Care ---
Author Name Unknown Organization [facility] Address [address] [place] [address] Phone [phone] Care Team Providers Care Hot Roll Laminator Name Role Phone Bassam Banks MD Primary Care Provider [phone] [phone] Reason for Visit * Reason Onset Date Comments Abnormal Test Results 05/09/2023 Encounter Details Date Type Department Care Team (Late st Contact Info) Description 05/09/2023 Telephone Hematology/Oncology Treatment, [place] [address] [place] [address] Ana Batres CRNP [address] [place] [address] Abnormal Test Results Allergies Active Allergy Reactions Criticality Noted Date [...] taking differently: Daily(AM), Reported on 11/22/2022 Ipratropium [place] 0.03 % Nasal Solution (Atrovent) Administer 2 [...] encounter Miscellaneous Notes * Telephone Encounter - Janae Delaney RN - 05/09/2023 4:25 PM EDT Received TT from lab- platelets 1231. Patient on baby aspirin, started on hydrea 500mg every other day 05/02/23. MTM visit tomorrow 05/10/23. Ana/ MTM: FYI documented in this encounter Plan of Treatment Upcoming Encounters Date Type Department Care Team (Late st Contact Info) Description 05/10/2023 9:00 AM EDT Pharmacy Pharmacy Hematology Oncology [facility] [address] [place] [address] [facility] Hem/Onc 100 [address] [facility] [place] [address] 05/13/2023 1:30 PM EST Office Visit Cardiology, [address] [place] [address] Shahla Darling CRNP [address] [place] [address] 07/23/2023 3:00 PM EST Office Visit Nephrology, [facility] 200 [facility] [place] [address] Jessy Smith MD 200 [facility] [place] [address] 08/01/2023 11:30 AM EST Office Visit Hematology/Oncology [facility] 200 [facility] [place] [address] Ana Batres CRNP 400 [facility] [place] [address] 08/26/2023 10:00 AM EST Office Visit Rheumatology [place] [address] [facility] [place], [place] [address] Aurora Montgomery CRNP [address] [employer] [place], [place] [address] 09/24/2023 1:00 PM EDT Office Visit Nephrology, [facility] 200 [facility] [place] [address] Lynnette Herring PA-C 200 [facility] [place], [place] [address] Health Maintenance Due Date Last Done Comments Zoster Vaccines (1 of 2) 07/17/2007 2007 DTaP,Tdap,and Td Vaccines (1 - Tdap) 06/22/2008 06/21/2008, 02/22/2000, 11/06/1995, Additional history exists Depression Screening 08/30/2016 08/30/2015 Phosphate 12/29/2021 12/29/2020, 01/03/2015 Albumin/Creatinine Ratio 12/07/2022 12/07/2021, 12/07 PTH 12/07/2022 12/07/2021, 12/07, 07/13/2019 COVID-19 Vaccine (24 season) 2023 04/10/2021, 10/09/2020, 09/08/2020 Influenza Vaccine [...] Not on filedocumented as of this encounter Care Teams Hot Roll Laminator Relationship Specialty Start Date End Date Bassam Banks MD [address] [place] [address] PCP - General Critical Care Medicine 04/25/20 documented as of this encounter
--- OUTSIDE RECORDS SUMMARY | 2023-05-26 22:33 | External Medical Summary | Summary of Care ---
Author Name Unknown Organization [facility] Address [address] [place] [address] Phone [phone] Care Team Providers Care Transfer Iron Operator Name Role Phone Bassam Banks MD Primary Care Provider [phone] [phone] Reason for Visit * Reason Comments Outpatient Testing Encounter Details Date Type Department Care Team (Latest Contact Info) Description 05/15/2023 12:40 PM EST Laboratory Laboratory, [facility] 132 [place] [phone] [facility] 132 [place] [address] Essential thrombocythemia (HCC) Allergies Active Allergy Reactions [...] taking differently: Daily(AM), Reported on 11/22/2022 Ipratropium [place] 0.03 % Nasal Solution (Atrovent) Administer 2 [...] 9:00 AM EST Pharmacy Pharmacy Hematology Oncology [address] [address] [facility] Hem/Onc [address] [place] [address] 07/23/2023 3:00 PM EST Office Visit Nephrology, [place] [address] [place] [address] Jessy Smith MD 200 [facility] [place] [address] 08/01/2023 11:30 AM EST Office Visit Hematology/Oncology [employer] 200 [facility] [place] [address] Ana Batres CRNP [address] [place], [place] [address] [address] 08/26/2023 10:00 AM EST Office Visit Rheumatology [facility] [place] [address] [place], [place] [address] Aurora Montgomery CRNP [address] [email or web address] [address] 09/24/2023 1:00 PM EDT Office Visit Nephrology, [place] 200 [facility] [place] [address] ZeLynnette hughes PA-C 200 [facility] [place] [address] Pending Results Name Type Priority Associated Diagnoses Date /Time CBC WITH WBC DIFFERENTIAL Lab STAT Essential thrombocythemia ([facility]) 05/15/2023 12:52 PM EST COMPREHENSIVE METABOLIC PANEL Lab STAT Essential thrombocythemia ([facility]) 05/15/2023 12:52 PM EST CBC Lab STAT Essential thrombocythemia ([facility]) 05/15/2023 12:52 PM EST DIFFERENTIAL, AUTOMATED Lab STAT Essential thrombocythemia ([facility]) 05/15/2023 12:52 PM EST Health Maintenance Due Date Last Done Comments Zoster Vaccines (1 of 2) 07/17/2007 2007 DTaP,Tdap,and Td Vaccines (1 - Tdap) 06/22/2008 06/21/2008, 02/22/2000, 11/06/1995, Additional history exists Depression Screening 08/30/2016 08/30/2015 Phosphate 12/29/2021 12/29/2020, 01/03/2015 Albumin/Creatinine Ratio 12/07/2022 12/07/2021, 12/07 PTH 12/07/2022 12/07/2021, 12/07, 07/13/2019 COVID-19 Vaccine ( - season) 2023 04/10/2021, 10/09/2020, 09/08/2020 Influenza Vaccine [...] thrombocythemia documented in this encounter Care Teams Transfer Iron Operator Relationship Specialty Start Date End Date Bassam Banks MD [address] [place] [address] PCP - General Critical Care Medicine 04/25/20 documented as of this encounter
--- OUTSIDE RECORDS SUMMARY | 2023-05-26 22:33 | External Medical Summary ---
Author Name Unknown Address Unknown Organization [id number] YESSICA [address] [place] [address] Laboratory Report Ordering Provider Test Date Status MASON ELISE 2023 13:27:07 Final Observation Date Value Abnormality Reference (Units ) Status SYNC LEUKOCYTES IN BLOOD BY AUTOMATED COUNT 2023 13:27:07 20.56 Above high normal 4.00-10.80 (K/uL) Final Segs 2023 13:27:07 87.2 Above high normal 40.0-75.0 (%) Final Lymphs % 2023 13:27:07 4.8 Below low normal 18.0-42.0 (%) Final Monos 2023 13:27:07 5.9 1.0-11.0 (%) Final Eosinophils 2023 13:27:07 1.8 0.0-6.0 (%) Final Basos 2023 13:27:07 0.3 0.0-2.0 (%) Final Absolute Segs 2023 13:27:07 17.91 Above high normal 1.80-7.70 (K/uL) Final Lymphs, absolute 2023 13:27:07 0.99 Below low normal 1.00-4.80 (K/ul) Final Monos, Abs 2023 13:27:07 1.21 Above high normal 0.00-1.10 (K/uL) Final Eos, Abs 2023 13:27:07 0.38 0.00-0.70 (K/uL) Final Basos, Abs 2023 13:27:07 0.07 0.00-0.20 (K/uL) Final Performing Location [facility]ORY [facility] YESSICA 57[address] 0 - [address] [place] [address]
--- OUTSIDE RECORDS SUMMARY | 2023-05-26 22:33 | External Medical Summary ---
Author Name Unknown Address Unknown Organization [id number] [place] [facility]U[place] [address] - [address] [place] [address] Laboratory Report Ordering Provider Test Date Status MASON ELISE 2023 13:27:07 Final Observation Date Value Abnormality Reference (Units ) Status BUN 2023 13:27:07 46 Above high normal 6-20 (mg/dL) Final Creatinine 2023 13:27:07 1.6 Above high normal 0.5-1.0 (mg/dL) Final Glomerular filtration rate/1.73 sq M.predicted [Volume Rate/Area] in Serum, Plasma or Blood by Creatinine-based formula (CKD-EPI) 2023 13:27:07 32 Below low normal >=60 (mL/min) Final eGFR is calculated based on the CKD-EPI 2020 equation SODIUM 2023 13:27:07 140 135-146 (m mol/L) Final Potassium 2023 13:27:07 3.7 3.5-5.1 (m mol/L) Final Cl 2023 13:27:07 106 98-107 (mm ol/L) Final CO2 2023 13:27:07 20 Below low normal 22- 32 (mmol/L) Final Anion gap 2023 13:27:07 14 7-15 (mmol /L) Final Glucose 2023 13:27:07 144 Above high normal 70 -120 (mg/dL) Final Albumin 2023 13:27:07 4.5 3.8-5.0 (g /dL) Final AST (Aspartate aminotransferase) 2023 13:27:07 30 10-35 (U/L) Fin al Alk Phos 2023 13:27:07 68 35-130 (U/ L) Final Bilirubin, Total 2023 13:27:07 0.7 <=1 .2 (mg/dL) Final Calcium 2023 13:27:07 10.0 8.4-10.2 ( mg/dL) Final Protein 2023 13:27:07 7.4 6.0-8.3 (g /dL) Final ALT (Alanine aminotransferase) 2023 13:27:07 10 10-35 (U/L) Cristian ren Performing Location [facility] [place] [address] 0 - [address] [place] [address]
--- OUTSIDE RECORDS SUMMARY | 2023-05-26 22:33 | External Medical Summary | Summary of Care ---
Author Name Unknown Organization [facility] Address [address] [place] [address] Phone [phone] Care Team Providers Care Manager Zone Name Role Phone Bassam Banks MD Primary Care Provider [phone] Reason for Visit * Reason Onset Date Comments Abnormal Test Results 05/09/2023 Encounter Details Date Type Department Care Team (Late st Contact Info) Description 05/09/2023 Telephone Hematology/Oncology Treatment, [place] [address] [place] [address] Ana Batres CRNP [address] [place] [address] Abnormal Test Results Allergies Active Allergy [...] taking differently: Daily(AM), Reported on 11/22/2022 Ipratropium [place] 0.03 % Nasal Solution (Atrovent) Administer 2 [...] AM EDT Pharmacy Pharmacy Hematology Oncology [facility] [address] [facility] [place] [address] [facility] Hem[facility]Onc [facility] [address] [facility] [address] 05/13/2023 1:30 PM EST Office Visit Cardiology, [address] [place] [address] Shahla Darling CRNP [address] [place] [address] 07/23/2023 3:00 PM EST Office Visit Nephrology, [facility] [address] [facility] [place] [address] Jessy Smith MD 200 [facility] [place] [address] 08/01/2023 11:30 AM EST Office Visit Hematology/Oncology [facility] 200 [facility] [place] [address] Ana Batres CRNP [address] [facility] [place] [address] 08/26/2023 10:00 AM EST Office Visit Rheumatology [place] [address] [facility] [place], [place] [address] Aurora Montgomery CRNP [address] [facility] [place], [place] [address] 09/24/2023 1:00 PM EDT Office Visit Nephrology, [facility] 200 [facility] [place] [address] Lynnette Herring PA-C 200 [facility] [place], [place] [address] Health Maintenance Due Date Last Done Comments [...] filedocumented as of this encounter Care Teams Manager Zone Relationship Specialty Start Date End Date Bassam Banks MD [address] [place] [address] PCP - General Critical Care Medicine 04/25/20 documented as of this encounter
--- OUTSIDE RECORDS SUMMARY | 2023-05-26 22:33 | External Medical Summary ---
Author Name Unknown Address Unknown Organization K[facility] [address] [place] [id number] Laboratory Report Ordering Provider Test Date Status MASON ELISE 2023 13:27:07 Final Observation Date Value Abnormality Reference (Units ) Status WBC, Total 2023 13:27:07 20.56 Above high normal 4 .00-10.80 (K/uL) Final RBC 2023 13:27:07 4.18 3.85-5.15 (M/uL) Final Hemoglobin 2023 13:27:07 12.2 12.0-15.3 (g/dL) Final HCT 2023 13:27:07 38.6 36.0-45.2 (%) Final MCV 2023 13:27:07 92.3 81.5-97.5 (fL) Final MCH 2023 13:27:07 29.2 27.0-34.0 (pg) Final MCHC 2023 13:27:07 31.6 32.0-36.0 (g/dL) Final RDW 2023 13:27:07 19.4 11.5-15.5 (%) Final Platelets 2023 13:27:07 858 Above high normal 14 0-400 (K/uL) Final MPV 2023 13:27:07 9.1 6.6-11.1 ( fL) Final Performing Location [facility] [place] [address] - [address] [place] [id number]
--- OUTSIDE RECORDS SUMMARY | 2023-05-26 22:33 | External Medical Summary | Summary of Care ---
Author Name Unknown Organization [facility] Address [address] [place] [address] Phone [phone] Care Team Providers Care Hand Finisher Name Role Phone Bassam Banks MD Primary Care Provider [phone] Reason for Visit * Reason Onset Date Comments Test Results Lab 05/15/2023 Encounter Details Date Type Department Care Team (Late st Contact Info) Description 05/15/2023 Telephone Hematology/Oncology Treatment, [place] [address] [place] [address] Ana Batres CRNP [address] [place] [address] Test Results Lab Allergies Active Allergy Reactions Criticality Noted Date [...] taking differently: Daily(AM), Reported on 11/22/2022 Ipratropium [place] 0.03 % Nasal Solution (Atrovent) Administer 2 [...] Telephone Encounter - Janae Delaney RN - 05/15/2023 1:47 PM EST Received TT from lab- platelets 1024. This is improved from last week. Patient on baby aspirin, started on hydrea 500mg every other day 05/02/23. MT visit tomorrow 05/10/23. Ana/ [facility]: FYI documented in this encounter Plan of Treatment Upcoming Encounters Date Type Department Care Team (Late st Contact Info) Description 05/16/2023 9:00 AM EST Pharmacy Pharmacy Hematology Oncology [facility] [address] [place] [address] [facility] Hem/Onc [address] [place] [address] 07/23/2023 3:00 PM EST Office Visit NephrologyJerry 200 [facility] [place], [place] [address] Jessy Smith MD 200 [facility] [place] [address] 08/01/2023 11:30 AM EST Office Visit Hematology/Oncology [facility] [place] [address] [facility] [place] [address] Ana Batres CRNP [address] [facility] [address] 08/26/2023 10:00 AM EST Office Visit Rheumatology [facility] [place] [address] [place], [place] [address] Aurora Montgomery CRNP [address] [employer] [place] [address] 09/24/2023 1:00 PM EDT Office Visit Nephrology, [facility] 200 [facility] [place] [address] ZeLynnette hughes PA-C 200 [facility] [place] [address] Health Maintenance Due Date Last Done Comments [...] filedocumented as of this encounter Care Teams Hand Finisher Relationship Specialty Start Date End Date Bassam Banks MD [address] [place] [address] PCP - General Critical Care Medicine 04/25/20 documented as of this encounter
--- OUTSIDE RECORDS SUMMARY | 2023-05-26 22:33 | External Medical Summary | Summary of Care ---
Author Name Unknown Organization [facility] Address [address] [place] [address] Phone [phone] Care Team Providers Care Quarry Manager Name Role Phone Bassam Banks MD Primary Care Provider [phone] Reason for Visit * Reason Comments Medication Management Encounter Details Date Type Department Care Team (Late st Contact Info) Description 05/23/2023 9:00 AM [facility] Pharmacy Pharmacy Hematology Oncology [facility] [address] [place], [place] [id number] [facility] Hem/Onc [address] [place], [place] [id number] MPN (myeloproliferative neoplasm) (HCC)* Allergies Active Allergy Reactions Criticality Noted Date Comments Lisinopril 03/24/2002 Marked cough reaction Nitrofurantoin Diarrhea 11/22/2022 Penicillins Low 03/13/2022 Other reaction(s): Diarrhea Pravastatin Sodium 09/28/2015 Elevated LFT's and CK/myalgias Sulfamethoxazole 12/28/2022 Trimethoprim 12/28/2022 documented as of this encounter (statuses as of 05/23/2023) Medications Medication Sig Dispensed Refills Start Date [...] taking differently: Daily(AM), Reported on 11/22/2022 Ipratropium [place] 0.03 % Nasal Solution (Atrovent) Administer 2 [...] as of this encounter (statuses as of 05/23/2023) Active Problems Problem Noted Date Diagnosed Date [...] as of this encounter (statuses as of 05/23/2023) Resolved Problems Problem Noted Date Diagnosed Date [...] as of this encounter (statuses as of 05/23/2023) Immunizations Name Administration Dates Next Due COVID-19 [...] as of this encounter Progress Notes * Qing Bellamy, [facility] - 05/23/2023 11:01 AM EST MEDICATION THERAPY MANAGEMENT HYDROXYUREA TREATMENT PROGRESS NOTE Linda Vega [id number] Patient Phone Numbers Pt is hearing impaired. Speak loud Preferred Lab: [facility] Pharmacy: [facility] in [place] Communication: Spoke to: Patient Treatment: Medication: Hydroxyurea (Hydrea) Indication/Staging/Diagnosis Code: MPN, JAK2+ Dose: 500mg daily M-F and 1000mg Sat/Sun (DI 05/15/23) Administration: +/- food Start Date: 05/02/23 PLT goal: 400-500K (while keeping ANC > 1500) Primary Cost Estimator/Oncologist: Yuniel Batres NP Preventative meds: Allopurinol 200mg daily Relevant Chronic Medications: Category Medications Pertinent Notes Anticoagulation ASA every other day Recommended by hem Interval History: No concerns, tolerating therapy well Pt confirmed increasing dose to 500mg daily M-F and 1000mg Sat/Sun Pt reports increased urinary frequency & burning on urination. Pt is to have urinary sample done. Pt reports she is moving from independent living to assisted-care living at [facility] Changes to medication list since last visit? No Assessment and Plan: PLT 828K declining WBC elevated but declining H/H stable Continue current dose Repeat labs in 1 week (scheduled 05/29 @1330) Assessment of compliance: compliant Assessment of adverse effects attributed to drug therapy: Impaired wound healing- absent Ulcers (skin or oral) - absent Nausea/vomiting - absent Dose adjustment needed based on lab or adverse drug reaction? No Follow up: 1 week Qing Bellamy, PharmD, BCOP Clinical Pharmacist [facility] 05/23/2023, 11:17 AM Monitoring Parameters: Estimated CrCl Hepatitis panel [...] Pertinent Labs: Latest Reference Range & Units 05/09/23 15:36 05/15/23 12:52 05/22/23 13:27 CBC WITH WBC DIFFERENTIAL Rpt !! Rpt !! Rpt ! WBC 4.00 - 10.80 K/uL 32.68 (H) 24.09 (H) 20.56 (H) HGB 12.0 - 15.3 g/dL 13.0 12.5 12.2 HCT 36.0 - 45.2 % 40.8 40.2 38.6 MCV 81.5 - 97.5 fL 90.7 92.2 92.3 PLT 140 - 400 K/uL 1,231 (HH) 1,024 (HH) 858 (H) Absolute Neutrophils 1.80 - 7.70 K/uL 28.76 (H) 19.51 (H) 17.91 (H) !!: Data is critical (HH): Data is critically high !: Data is abnormal (H): Data is abnormally high Rpt: View report in Results Review for more information Time Spent on Encounter: 11 - 15 minutes Encounter Group: Hematology Encounter Interventions Item Category: Oral Chemotherapy Hydroxurea Problem/Rationale: Safety: Needs additional monitoring - Medication Requires monitoring Pharmacist Intervention(s): Care coordination, Lab monitoring, and Toxicity monitoring Magnitude of Intervention: Monitoring with direction (Level 1) documented in this encounter Plan of Treatment Upcoming Encounters Date Type Department Care Team (Late st Contact Info) Description 05/23/2023 1:00 PM EST Laboratory Laboratory, [facility] [place] [id number] [facility] [address] 05/29/2023 1:30 PM EST Laboratory Laboratory, [facility] [place] [phone] CampuzanoSyed razo [facility] 132 [place] [address] 07/23/2023 3:00 PM EST Office Visit Nephrology, [facility] 200 [facility] [place] [address] Jessy Smith MD 200 [facility] [place] [address] 08/01/2023 11:30 AM EST Office Visit Hematology/Oncology [facility] 200 [facility] [place] [address] Ana Batres CRNP [address] [place] [id number] 08/26/2023 10:00 AM EST Office Visit Rheumatology [address] [place] [address] Aurora Montgomery CRNP [address] [facility] [place] [address] 09/24/2023 1:00 PM EDT Office Visit Nephrology, Jerry Mcbride 200 [facility] [place] [address] ZemaLynnette rouse PA-C 200 [facility] [place] [address] Health Maintenance Due Date Last Done Comments [...] history exists Nephrology Referral 03/26/2024 03/26/2023 Hgb 2024 2023, 110 02/2023, 05/09/2023, Additional history exists DXA Scan [...] tissues documented in this encounter Care Teams Quarry Manager Relationship Specialty Start Date End Date Bassam Banks MD [address] [place] [address] PCP - General Critical Care Medicine 04/25/20 documented as of this encounter
[2023-05-26] MEDS ORDERED: cefTRIAXone SODIUM 2,000 MG/50 ML BAG IV STA (22:46)
[2023-05-26] MEDS ORDERED: FUROSEMIDE 40 MG/4 ML VIAL IV ONE (22:46)
[2023-05-26 23:25] LABS: Basophils # (auto) 0.11 K/uL (0.00-0.20); Basophils % (auto) 0.6 %; Eosinophils # (auto) 0.32 K/uL (0.00-0.50); Eosinophils % (auto) 1.8 %; Hematocrit (blood only) 37.6 % (37.0-47.0); Immature Granulocytes % (auto) 0.6 %; Lymphocytes # (auto) 1.11 K/uL (1.20-3.40); Lymphocytes % (auto) 6.2 %; Mean Corpuscular Hemoglobin 29.2 pg (25.0-34.0); Mean Corpuscular Hgb Conc 31.9 g/dL (32.0-36.0); Mean Corpuscular Volume 91.5 fL (80.0-100.0); Mean Platelet Volume 9.7 fL (9.4-12.4); Monocytes % (auto) 8.4 %; Neutrophils # (auto) 14.73 K/uL (1.40-6.50); Neutrophils % (auto) 82.4 %; Platelet Count 766 K/uL (130-400); RDW Coefficient of Variation 19.3 % (11.5-14.5); RDW Standard Deviation 64.2 fL (36.4-46.3); Red Blood Count 4.11 M/uL (4.20-5.40); White Blood Count 17.87 K/ul (4.8-10.8)
--- NOTE | 2023-05-26 23:25 | Emergency Department Note ---
History of Present Illness General Chief complaint: Leg Injury/Pain Stated complaint: R LEG ISSUES Time Seen by Provider: 05/26/23 22:39 History of Present Illness This 88-year-old female presents to the ER with family for evaluation of right lower leg pain and swelling for the past few days steadily getting worse. Patient denies chest pain, dyspnea, fevers, trauma to the area. No history of DVT. She is post to wear MOSHE hose and takes a water pill. Home Medications Medication Instructions Recorded Confirmed Type acetaminophen 500 mg capsule 1,000 mg PO TID 02/09/19 05/26/23 History ezetimibe 10 mg tablet (Zetia) 10 mg PO QAM 02/09/19 05/26/23 History omeprazole 20 mg capsule,delayed 20 mg PO BID 02/09/19 05/26/23 History release vit C 250 mg-vit E 90 mg-zinc 40 1 tab PO BID 02/09/19 05/26/23 History mg-copper 1 [id number] capsule (PreserVision AREDS-2) torsemide 10 mg tablet 10 mg PO DAILY 03/04/20 05/26/23 History alendronate 70 mg tablet 70 mg PO WE 02/09/23 05/26/23 History allopurinol 100 mg tablet 200 mg PO DAILY 02/09/23 05/26/23 History docusate sodium 100 mg capsule 100 mg PO DAILY 02/09/23 05/26/23 History (Colace) melatonin 10 mg tablet 10 mg PO HS 02/09/23 05/26/23 History patiromer calcium sorbitex 8.4 8.4 g PO DAILY 02/09/23 05/26/23 History gram oral powder packet (Veltassa) prednisone 5 mg tablet 5 mg PO Q OTHER DAY 02/09/23 05/26/23 History hydroxyurea 500 mg capsule See Rx Instructions .Route .COMPLEX 05/26/23 05/26/23 History ipratropium bromide 21 mcg (0.03 2 spray intranasal AMHS 05/26/23 05/26/23 History %) nasal spray Allergies Allergy/AdvReac Type Severity Reaction Status Date / Time pravastatin Allergy Unknown RABDOMYELITIS Verified 05/26/23 23:21 (?SPELLING), ELEVATED MUSCLE AND LIVER ENZYMES sulfamethoxazole Allergy Unknown Unknown Verified 11/19/23 23:21 [From Bactrim] trimethoprim [From Bactrim] Allergy Unknown Unknown Verified 05/26/23 23:21 nitrofurantoin AdvReac Severe Diarrhea Verified 05/26/23 23:21 [From Macrobid] Penicillins AdvReac Mild Diarrhea Verified 05/26/23 23:21 lisinopril AdvReac Unknown COUGH Verified 05/26/23 23:21 Past Med/Surg History Medical History Bilateral primary osteoarthritis of knee CKD (chronic kidney disease) Osteoporosis Uterine prolapse Hard of hearing GERD (gastroesophageal reflux disease) Osteoarthritis High cholesterol High blood pressure History of Spontaneous Cystocele Adenomatous endometrial hyperplasia Cystocele, midline Rectocele Surgical History Hx of left cataract extraction H/O dilation and curettage for MAB History of tonsillectomy and adenoidectomy H/O arthroscopic knee surgery RIGHT H/O colonoscopy History of endometrial biopsy History of repair of hiatal hernia Family History Aunt Breast cancer Father Hypertension Cerebral artery occlusion Mother TIA (transient ischemic attack) Osteoarthritis Rheumatoid arthritis Denies family history of Malignant hyperthermia Ovarian cancer Clotting disorder Colorectal cancer Social History Smoking Status: Never smoker Tobacco Type: Cigarettes Second Hand Exposure: No; Do You Dip or Chew Tobacco: No; Hx Alcohol Use: No Hx Substance Use: No Preferred Language: Montenegrin Communication Ability: Effective Hearing Ability: Hard of Hearing Firefighting Equipment Specialist Required: No Beliefs That Will Affect Care: None marital status: Current Living Situation: Spouse current occupational status: retired Feels Safe at Home: Yes Diet: regular caffeine: Yes during the past year weight has: remained stable Do you think of yourself as: straight/heterosexual Gender Identity: Female Assistive Devices: Walker Review of Systems A total of 10 systems reviewed and were otherwise negative Physical Exam Vital Signs Vital Signs - 24 hr 05/26/23 22:33 Temperature 36.5 C Temperature Source Temporal Artery Scan Pulse Rate 97 H Respiratory Rate 16 Respiratory Depth Normal Blood Pressure 158/78 H Blood Pressure Mean 104 Pulse Oximetry 100 Oxygen Delivery Method Room Air Sepsis Recent Fever Within 48 Hours No Sepsis New/Unexplained Change in Mental Status No Sepsis Action Taken by Nursing No Action Required VITALS: Vitals are noted on the nurse's note and reviewed by myself. Vital signs stable. GENERAL: Pleasant female, in no acute distress, nondiaphoretic, well-developed well-nourished. SKIN: The skin was without rashes, or bruising. There is no tenting of the skin. Capillary reflex less than 2 seconds. HEAD: Normocephalic atraumatic. EARS: External auditory canals clear, EYES: Pupils equal round and reactive to light and accommodation. Conjunctivae without injection, sclerae without icterus. Extraocular movements intact. NOSE: Patent MOUTH: Mucous membranes moist. Pharynx without erythema or exudate. Uvula midline. Airway patent. Tongue does not deviate. NECK: Supple without nuchal rigidity. No lymphadenopathy. No thyromegaly. Cervical spine is nontender. No JVD. HEART: Regular rate and rhythm LUNGS: Clear to auscultation bilaterally without wheezes, rales or rhonchi. No retractions or accessory muscle use. ABDOMEN: Positive bowel sounds x 4. Normal tympanic percussion. Soft, nontender, without masses or organomegaly. Dowd sign negative. No guarding or rebound tenderness. No CVA tenderness MUSCULOSKELETAL: No muscle atrophy noted. Right lower leg erythematous and edematous up to the mid tib-fib, pedal pulses +2 equal and present bilaterally, left lower leg slightly edematous without signs of infection. NEURO: Patient was alert and oriented to person place and time. Normal sensation to light and sharp touch. No focal neurological deficits. Course Administered Medications Clindamycin Phosphate (Cleocin/D5w) 600 mg in 50 mls @ 100 mls/hr IV Q8H [facility] Stop: 06/03/23 01:59 Last Infusion: 05/27/23 02:33 Dose: Infused Documented By: Admin: 05/27/23 02:00 Dose: 100 mls/hr Documented By: WASHINGTON Discontinued Medications Furosemide (Furosemide 40 Mg/4 Ml Vial) 40 mg IV ONE ONE Stop: 05/26/23 22:47 Last Admin: 05/26/23 23:21 Dose: 40 mg Documented By: KARLO Ceftriaxone Sodium (Rocephin) 2,000 mg in 50 mls @ 100 mls/hr IV NOW STA Stop: 05/26/23 23:15 Last Infusion: 05/26/23 23:54 Dose: Infused Documented By: Admin: 05/26/23 23:21 Dose: 100 mls/hr Documented By: KARLO Medical Decision Making Medical Records Attestation: I reviewed the patient's medical records. Home Medications Current Medication List: was personally reviewed by me Laboratory Data Attestation: I reviewed the patient's lab results. 05/26/23 22:55 05/26/23 22:55 Lab Results 05/26/23 Range/Units 22:55 WBC 17.87 H (4.8-10.8) K/ul RBC 4.11 L (4.20-5.40) M/uL Hgb 12.0 (12.0-16.0) g/dl Hct 37.6 (37.0-47.0) % MCV 91.5 (80.0-100.0) fL MCH 29.2 (25.0-34.0) pg MCHC 31.9 L (32.0-36.0) g/dL RDW Std Deviation 64.2 H (36.4-46.3) fL RDW Coeff of Andreia 19.3 H (11.5-14.5) % Plt Count 766 H (130-400) K/uL MPV 9.7 (9.4-12.4) fL Immature Gran % (Auto) 0.6 % Neut % (Auto) 82.4 % Lymph % (Auto) 6.2 % [place] % (Auto) 8.4 % Eos % (Auto) 1.8 % Baso % (Auto) 0.6 % Neut # (Auto) 14.73 H (1.40-6.50) K/uL Lymph # (Auto) 1.11 L (1.20-3.40) K/uL [place] # (Auto) 1.50 H (0.11-0.59) K/uL Eos # (Auto) 0.32 (0.00-0.50) K/uL Baso # (Auto) 0.11 (0.00-0.20) K/uL Immature Gran # (Auto) 0.10 (0.01-0.20) K/uL Sodium 139 (136-145) mmol/L Potassium 3.6 (3.5-5.1) mmol/L Chloride 111 H (98-107) mmol/L Carbon Dioxide 20 L (21-32) mmol/L Anion Gap 8 (3-11) BUN 42 H (6-23) mg/dl Creatinine 1.44 H (0.6-1.2) mg/dl Est Cr Clr Drug Dosing 27.6 ml/min Est GFR ( Amer) 38.0 ml/min Est GFR (Non-Af Amer) 32.8 ml/min BUN/Creatinine Ratio 29.2 H (10-20) Glucose 108 H (70-99(Fasting)) mg/dl Lactate 1.6 (0.4-2.0) mmol/L Calcium 9.7 (8.6-10.3) mg/dl Total Bilirubin 0.6 (0.2-1.0) mg/dl AST 24 (13-39) U/L ALT 16 (7-52) U/L Alkaline Phosphatase 62 (34-104) U/L Total Protein 7.0 (6.0-8.3) gm/dl Albumin 4.3 (3.4-5.0) gm/dl Globulin 2.7 (2.5-4.0) gm/dl Albumin/Globulin Ratio 1.6 (0.9-2) Imaging Data Attestation: I personally reviewed and interpreted this imaging study as follows: Radiologist's Impression: Venous Doppler Study 05/26/23 22:47 Exam(s): US VENOUS BILATERAL LOWER EXTREMITIES EXAM: US Duplex Bilateral Lower Extremities Veins CLINICAL HISTORY: Reason for exam: Eval for DVT. TECHNIQUE: Real-time duplex ultrasound scan of the bilateral lower extremity veins integrating B-mode two-dimensional vascular structure, Doppler spectral analysis, color flow Doppler imaging and compression. COMPARISON: No relevant prior studies available. FINDINGS: Right deep veins: Unremarkable. The visualized deep veins of the right lower extremity are compressible with color flow. No visualized thrombus. Right superficial veins: Unremarkable. Left deep veins: Unremarkable. The visualized deep veins of the left lower extremity are compressible with color flow. No visualized thrombus. Left superficial veins: Unremarkable. Soft tissues: Subcutaneous soft tissue edema. IMPRESSION: No DVT within the bilateral lower extremities. Electronically signed by: Elan Ruiz MD 05/27/23 02:42 AM [facility] Narrative Prior records reviewed and summarized as above. Triage Nursing notes reviewed. Additional history obtained from family. The patient's history was concerning for swelling and redness of the skin. Differential diagnosis: Etiologies such as cellulitis, abscess, MRSA infection, DVT, necrotizing fasciitis, dermatitis, drug eruption, as well as others were entertained.. Physical examination: The physical examination was consistent with cellulitis ER treatment provided: Rocephin and Lasix were ordered On reassessment the patient felt better. Diagnostics interpreted by me: The labs Independently Interpreted by myself revealed stable leukocytosis per chart review. Patient follows with a matrix bath attendant for this Negative lactic Imaging studies: Ultrasound negative for DVT per my independent interpretation Consultation: A consultation was placed with the hospitalist. The case was discussed and diagnostics were reviewed. The patient was evaluated in the ER for further treatment. This appears to be isolated cellulitis. This is quite extensive. Patient did not feel comfortable going home. Medicine was consulted the case was discussed. She will be evaluated by the hospitalist for admission. Patient was started on antibiotics. She was afebrile nontoxic. Negative lactic. No DVT. By the evaluation outlined above emergent etiologies such as abscess, necrotizing fasciitis, DVT, as well as others were deemed relatively unlikely. The pt informed about the findings as listed above. All questions were answered and pleased with the treatment. The chart was completed utilizing [employer] Speech voice recognition software. Grammatical errors, random word insertions, pronoun errors, and incomplete sentences are an occassional consequence of this system due to software limitations, ambient noise, and hardware issues. Any formal questions or concerns about the content, text, or information contained within the body of this dictation should be directly addressed to the physician residential assistant for clarification. Impression & Plan Cellulitis of right lower leg Discharge Plan Visit Data Chief Complaint: Leg Injury/Pain Stated Complaint: R LEG ISSUES ED Provider: Manas Ambrocio ED Midlevel Provider: Fang Roque Discharge Problem: Cellulitis of right lower leg Patient Disposition: Admitted As Inpatient Condition: Good Discharge Instructions Interventions: ED Discharge Assessment Last Done: 05/27/23 01:03
[2023-05-26 23:32] LABS: Albumin Globulin Ratio 1.6 (0.9-2); Albumin Level 4.3 gm/dl (3.4-5.0); BUN Creatinine Ratio 29.2 (10-20); Bilirubin,Total 0.6 mg/dl (0.2-1.0); Calcium 9.7 mg/dl (8.6-10.3); Creatinine Clr Calc Pharmacy 27.6 ml/min; Est GFR (Non-African American) 32.8 ml/min; Globulin 2.7 gm/dl (2.5-4.0); Potassium 3.6 mmol/L (3.5-5.1)
--- NOTE | 2023-05-26 23:54 | Emergency Department Note ---
ED Visit Note Staff note: I have reviewed the Patients chart and have discussed this case with my PA. I generally agree with the ED note and findings. .
--- NOTE | 2023-05-27 00:26 | History & Physical Report ---
Date of Service May 27, 2023 Assessment & Plan (1) Cellulitis of right lower leg: Plan: Right lower extremity cellulitis failed outpatient management. Nonpurulent cellulitis, although patient states there is a little bit of drainage Received a dose of ceftriaxone in the ED Change to clindamycin 600 mg every 8 hours Monitor the area of erythema Also patient at home on torsemide for chronic edema we will continue (2) Chronic venous insufficiency: Plan: Uses MOSHE hose On torsemide at home, continue (3) Hypertension: Plan: Blood pressure 158/78 Patient not on any antihypertensives at home (4) Thrombocythemia: Plan: Recently started on hydroxyurea by hematology Monitor platelets (5) CKD (chronic kidney disease) stage 2, GFR 60-89 ml/min: Plan: Follows up with nephrology outpatient Serum creatinine is close to baseline Avoid nephrotoxic's Monitor in view of diuresis Plan Admit to [facility] Full code DVT prophylaxis heparin History of Present Illness Chief Complaint: Right lower extremity swelling and redness Primary Care Provider: [facility] Is an 88-year-old female with a history of chronic venous insufficiency, CKD, rotator cuff arthropathy, polymyalgia who presents to the hospital today for evaluation of a right lower extremity swelling and redness. According to the patient she says she has some baseline leg swelling and takes Lasix at home however over the past few days she noticed that both lower extremities were getting red especially the right lower extremity. She denies fevers or chills and states she wears MOSHE hose but because of the worsening redness she wanted to come to the hospital for evaluation. Here in the emergency department WBC was 17,000, serum creatinine 1.44 almost at baseline. She was started on IV antibiotics and will be admitted to the hospital further management. Allergies Allergy/AdvReac Type Severity Reaction Status Date / Time pravastatin Allergy Unknown RABDOMYELITIS Verified 05/26/23 23:21 (?SPELLING), ELEVATED MUSCLE AND LIVER ENZYMES sulfamethoxazole Allergy Unknown Unknown Verified 05/26/23 23:21 [From Bactrim] trimethoprim [From Bactrim] Allergy Unknown Unknown Verified 05/26/23 23:21 nitrofurantoin AdvReac Severe Diarrhea Verified 05/26/23 23:21 [From Macrobid] Penicillins AdvReac Mild Diarrhea Verified 05/26/23 23:21 lisinopril AdvReac Unknown COUGH Verified 05/26/23 23:21 Home Medications Medication Instructions Recorded Confirmed Type acetaminophen 500 mg capsule 1,000 mg PO TID 02/09/19 05/26/23 History ezetimibe 10 mg tablet (Zetia) 10 mg PO QAM 02/09/19 05/26/23 History omeprazole 20 mg capsule,delayed 20 mg PO BID 02/09/19 05/26/23 History release vit C 250 mg-vit E 90 mg-zinc 40 1 tab PO BID 02/09/19 05/26/23 History mg-copper 1 [id number] capsule (PreserVision AREDS-2) torsemide 10 mg tablet 10 mg PO DAILY 03/04/20 05/26/23 History alendronate 70 mg tablet 70 mg PO WE 02/09/23 05/26/23 History allopurinol 100 mg tablet 200 mg PO DAILY 02/09/23 05/26/23 History docusate sodium 100 mg capsule 100 mg PO DAILY 02/09/23 05/26/23 History (Colace) melatonin 10 mg tablet 10 mg PO HS 02/09/23 05/26/23 History patiromer calcium sorbitex 8.4 8.4 g PO DAILY 02/09/23 05/26/23 History gram oral powder packet (Veltassa) prednisone 5 mg tablet 5 mg PO Q OTHER DAY 02/09/23 05/26/23 History hydroxyurea 500 mg capsule See Rx Instructions .Route .COMPLEX 05/26/23 05/26/23 History ipratropium bromide 21 mcg (0.03 2 spray intranasal AMHS 05/26/23 05/26/23 History %) nasal spray Past Med/Surg History Medical History Bilateral primary osteoarthritis of knee CKD (chronic kidney disease) Osteoporosis Uterine prolapse Hard of hearing GERD (gastroesophageal reflux disease) Osteoarthritis High cholesterol High blood pressure History of Spontaneous Cystocele Adenomatous endometrial hyperplasia Cystocele, midline Rectocele Surgical History Hx of left cataract extraction H/O dilation and curettage for MAB History of tonsillectomy and adenoidectomy H/O arthroscopic knee surgery RIGHT H/O colonoscopy History of endometrial biopsy History of repair of hiatal hernia Family History Aunt Breast cancer Father Hypertension Cerebral artery occlusion Mother TIA (transient ischemic attack) Osteoarthritis Rheumatoid arthritis Denies family history of Malignant hyperthermia Ovarian cancer Clotting disorder Colorectal cancer Social History Smoking Status: Never smoker Tobacco Type: Cigarettes Second Hand Exposure: No; Do You Dip or Chew Tobacco: No; Hx Alcohol Use: No Hx Substance Use: No Preferred Language: Swiss Communication Ability: Effective Hearing Ability: Hard of Hearing Mechanical Design Drafter Required: No Beliefs That Will Affect Care: None marital status: Current Living Situation: Spouse current occupational status: retired Feels Safe at Home: Yes Diet: regular caffeine: Yes during the past year weight has: remained stable Do you think of yourself as: straight/heterosexual Gender Identity: Female Assistive Devices: Walker Review of Systems Review of Systems: All systems reviewed are negative, apart from the ones contained in the history. Physical Exam Physical Exam: The patient is awake, alert and oriented 3, well developed and well nourished, normocephalic and atraumatic, lying in bed and in no acute distress. HEENT--PERRL, EOMI, mucous membranes and oropharynx mildly dry Neck--supple. No JVD. No bruits. Thyroid normal, trachea midline, no adenopathy. Heart--normal S1 and S2. No murmurs, rubs or gallops. Lungs--clear bilaterally, no respiratory distress, no accessory muscle use. Abdomen--normal bowel sounds and soft. Mild epigastric and left sided abdominal pain Extremities--bilateral pitting leg edema Dermatologic--right lower extremity redness Neurologic--cranial nerves II through XII grossly intact. Rheumatologic--normal range of motion. Psychiatric--normal affect. Results & Data Results & Data Vital Signs (Past 12 Hours) Vital Signs Temp Pulse Resp BP Pulse Ox O2 Del Method 05/26/23 22:33 97.7 F 97 H 16 158/78 H 100 Room Air PG Care Time/CCT Total # of Minutes Spent Total Time Spent with Patient: Total time spent is greater than 50% in coordination of care (as documented) at patient's floor/unit and/or counseling patient: Coding Level of Care Code 45248 INT INP/OBS CARE MIN Diagnoses Cellulitis of right lower leg L03.115 Chronic venous insufficiency I87.2 Hypertension I10 Thrombocythemia D75.839 CKD (chronic kidney disease) stage 2, GFR 60-89 ml/min N18.2 Time Spent (min) 75
[2023-05-27] MEDS: CLINDAMYCIN/D5W 600 MG/50 ML BAG IV SCH ×3 (02:00→18:12)
--- NOTE | 2023-05-27 02:43 | Ultrasound Report ---
Exam(s): US VENOUS BILATERAL LOWER EXTREMITIES EXAM: US Duplex Bilateral Lower Extremities Veins CLINICAL HISTORY: Reason for exam: Eval for DVT. TECHNIQUE: Real-time duplex ultrasound scan of the bilateral lower extremity veins integrating B-mode two-dimensional vascular structure, Doppler spectral analysis, color flow Doppler imaging and compression. COMPARISON: No relevant prior studies available. FINDINGS: Right deep veins: Unremarkable. The visualized deep veins of the right lower extremity are compressible with color flow. No visualized thrombus. Right superficial veins: Unremarkable. Left deep veins: Unremarkable. The visualized deep veins of the left lower extremity are compressible with color flow. No visualized thrombus. Left superficial veins: Unremarkable. Soft tissues: Subcutaneous soft tissue edema. IMPRESSION: No DVT within the bilateral lower extremities. Electronically signed by: Elan Ruiz MD 05/27/23 02:42 AM
[2023-05-27] MEDS: ACETAMINOPHEN 325 MG TAB PO PRN ×3 (06:07→22:37)
[2023-05-27 07:30] LABS: Hematocrit (blood only) 36.9 % (37.0-47.0); Hemoglobin 11.9 g/dl (12.0-16.0); Mean Corpuscular Hemoglobin 28.7 pg (25.0-34.0); Mean Corpuscular Hgb Conc 32.2 g/dL (32.0-36.0); Mean Corpuscular Volume 89.1 fL (80.0-100.0); Mean Platelet Volume 9.6 fL (9.4-12.4); Platelet Count 734 K/uL (130-400); RDW Standard Deviation 60.5 fL (36.4-46.3); Red Blood Count 4.14 M/uL (4.20-5.40); White Blood Count 19.43 K/ul (4.8-10.8)
[2023-05-27] MEDS: allopurinoL 100 MG TAB PO SCH (08:35)
[2023-05-27] MEDS: DOCUSATE SODIUM 100 MG CAP PO SCH (08:35)
[2023-05-27] MEDS: IPRATROPIUM BROMIDE NASAL SPRAY 0.06% 15ML NAE SCH ×2 (08:35→21:22)
[2023-05-27] MEDS: EZETIMIBE 10 MG TAB PO SCH (08:35)
[2023-05-27] MEDS: TORSEMIDE 10 MG TAB PO SCH (08:35)
[2023-05-27] MEDS: HEPARIN SOD 5,000 UNIT/0.5 ML VIAL SQ SCH ×2 (08:36→21:22)
[2023-05-27] MEDS: PANTOprazole 40 MG TAB PO SCH ×2 (08:36→21:22)
[2023-05-27 09:10] LABS: BUN Creatinine Ratio 28.8 (10-20); Calcium 9.5 mg/dl (8.6-10.3); Creatinine Clr Calc Pharmacy 31.4 ml/min; Est GFR (African American) 45.1 ml/min; Est GFR (Non-African American) 38.9 ml/min; Potassium 2.8 mmol/L (3.5-5.1)
[2023-05-27] MEDS: HYDROXYUREA 500 MG CAP PO SCH (10:20)
[2023-05-27] MEDS: POTASSIUM CHLORIDE CRTAB 20 MEQ TABCR PO SCH ×2 (10:20→21:22)
--- NOTE | 2023-05-27 13:00 | Hospitalist Progress Note ---
Date of Service May 27, 2023 Assessment & Plan (1) Cellulitis of right lower leg: Plan: Apparently she was on oral antibiotics as an outpatient but she is unable to specify exactly which one. There does appear to be a cellulitic process involving both lower extremities below the knees, right greater than left. She is now on clindamycin. (2) Chronic venous insufficiency: Plan: Uses MOSHE hose. Leg elevation. Continue torsemide (3) Hypertension: Plan: Systolic blood pressure mildly elevated. Patient not on any antihypertensives at home currently (4) Thrombocythemia: Plan: Recently started on hydroxyurea by hematology. Serial labs (5) CKD (chronic kidney disease) stage 2, GFR 60-89 ml/min: Plan: Monitor intake and output. Serial labs Plan Anticipate eventual discharge back to home on oral antibiotic later this week Admission and Anticipated Discharge Date Admission Date: May 26, 2023 Subjective Alert and oriented. No complaints. She was admitted for suspected right lower extremity cellulitis. Left lower extremity is also reddened. Known chronic venous insufficiency underlying all this. She is on intravenous clindamycin. She takes patiromer at home and potassium is low at 2.8. This has been held and oral potassium replacement has been ordered along with serial labs. Review of Systems 2 Review of Systems: Constitutional-no fever or chills ENT-no blurred vision, no double vision, no epistaxis, no sore throat Respiratory-no cough, no wheezing, no shortness of breath Cardiac-no palpitations, no chest pain, no syncope GI-no nausea, vomiting, diarrhea, melena, hematochezia -no urinary retention, no urinary incontinence, no dysuria, no hematuria Musculoskeletal-no joint pain. Bilateral lower extremity erythema and tenderness, right lower extremity greater than left below the knees Skin-no bruising, no rashes, no pruritus Neuro-no isolated weakness, no paresthesia Psych-no depression, no anxiety Physical Exam 2 Physical Exam: General-alert and oriented x3, no fevers, no chills HEENT-head atraumatic and normocephalic, pupils equal and reactive to light, extraocular muscles intact Neck-no lymphadenopathy or thyromegaly, trachea midline Chest-clear to auscultation and percussion. No rales, wheezing or rhonchi Cardiac-regular rate and rhythm, normal S1 and S2 Abdomen-normal bowel sounds, nontender, no hepatosplenomegaly Extremities- chronic bilateral lower extremity venous stasis and mild edema. Erythema bilateral lower extremities right greater than left below the knees with tenderness to palpation Neuro-cranial nerves II through XII intact, motor and sensory function within normal limits, strength symmetrical , no focal deficits Psych-normal affect, normal mood Results & Data Results & Data Vital Signs (Past 12 Hours) Vital Signs Temp Pulse Resp BP Pulse Ox O2 Del Method 05/27/23 01:20 Room Air 05/27/23 01:20 Room Air 05/27/23 01:20 36.3 C L 85 16 166/72 H 99 Room Air Laboratory Results 05/27/23 06:56 05/27/23 06:56 PG Care Time/CCT Total # of Minutes Spent Total Time Spent with Patient: Total time spent is greater than 50% in coordination of care (as documented) at patient's floor/unit and/or counseling patient: Coding Level of Care Code 83464 SUB INP/OBS CARE 3/50MIN Diagnoses Cellulitis of right lower leg L03.115 Chronic venous insufficiency I87.2 Hypertension I10 Thrombocythemia D75.839 CKD (chronic kidney disease) stage 2, GFR 60-89 ml/min N18.2
[2023-05-28] MEDS: CLINDAMYCIN/D5W 600 MG/50 ML BAG IV SCH (01:56)
[2023-05-28] MEDS: ACETAMINOPHEN 325 MG TAB PO PRN ×2 (04:01→09:51)
[2023-05-28 05:54] LABS: Basophils # (auto) 0.12 K/uL (0.00-0.20); Basophils % (auto) 0.6 %; Eosinophils # (auto) 0.45 K/uL (0.00-0.50); Eosinophils % (auto) 2.3 %; Hematocrit (blood only) 37.4 % (37.0-47.0); Hemoglobin 11.8 g/dl (12.0-16.0); Immature Granulocytes # (auto) 0.11 K/uL (0.01-0.20); Immature Granulocytes % (auto) 0.6 %; Lymphocytes # (auto) 1.31 K/uL (1.20-3.40); Lymphocytes % (auto) 6.8 %; Mean Corpuscular Hemoglobin 29.1 pg (25.0-34.0); Mean Corpuscular Hgb Conc 31.6 g/dL (32.0-36.0); Mean Corpuscular Volume 92.1 fL (80.0-100.0); Mean Platelet Volume 9.6 fL (9.4-12.4); Monocytes # (auto) 1.65 K/uL (0.11-0.59); Monocytes % (auto) 8.6 %; Neutrophils # (auto) 15.65 K/uL (1.40-6.50); Neutrophils % (auto) 81.1 %; Platelet Count 672 K/uL (130-400); RDW Coefficient of Variation 18.9 % (11.5-14.5); RDW Standard Deviation 63.3 fL (36.4-46.3); Red Blood Count 4.06 M/uL (4.20-5.40); White Blood Count 19.29 K/ul (4.8-10.8)
[2023-05-28 07:05] LABS: BUN Creatinine Ratio 23.8 (10-20); Calcium 9.1 mg/dl (8.6-10.3); Est GFR (African American) 35.9 ml/min; Potassium 3.6 mmol/L (3.5-5.1)
[2023-05-28] MEDS: HEPARIN SOD 5,000 UNIT/0.5 ML VIAL SQ SCH ×2 (08:40→21:24)
[2023-05-28] MEDS: allopurinoL 100 MG TAB PO SCH (08:40)
[2023-05-28] MEDS: IPRATROPIUM BROMIDE NASAL SPRAY 0.06% 15ML NAE SCH ×2 (08:40→21:24)
[2023-05-28] MEDS: DOCUSATE SODIUM 100 MG CAP PO SCH (08:40)
[2023-05-28] MEDS: EZETIMIBE 10 MG TAB PO SCH (08:40)
[2023-05-28] MEDS: POTASSIUM CHLORIDE CRTAB 20 MEQ TABCR PO SCH ×2 (08:41→21:24)
[2023-05-28] MEDS: HYDROXYUREA 500 MG CAP PO SCH (08:41)
[2023-05-28] MEDS: PANTOprazole 40 MG TAB PO SCH ×2 (08:41→21:24)
[2023-05-28] MEDS: predniSONE 5 MG TAB PO SCH (08:41)
[2023-05-28] MEDS: TORSEMIDE 10 MG TAB PO SCH (08:41)
[2023-05-28] MEDS: cefTRIAXone SODIUM 2,000 MG in DEXTROSE 5 % MINI-B 50 ML IV SCH (09:43)
--- NOTE | 2023-05-28 11:52 | XRay Report ---
RIGHT ANKLE 3 VIEWS CLINICAL HISTORY: Right ankle pain. Erythema. FINDINGS: 3 views of the right ankle are obtained. No prior studies are available for comparison at t he time of dictation. The skeletal structures are osteopenic. No fracture is seen. There is no bony e rosion or periostitis. The ankle mortise is intact. Degenerative change is seen at the tibiotalar art iculation. A large os trigonum is incidentally noted. There are small dorsal and large plantar heel s purs. Soft tissue edema is present throughout the visualized right lower extremity. There is atherosc lerotic calcification of the regional arteries. IMPRESSION: 1. Soft tissue swelling with no acute bony abnormality identified. 2. Osteopenia with degenerative change and heel spurs as above. Electronically signed by: Chavo Blake M.D. 05/28/2023 11:51 AM
--- NOTE | 2023-05-28 12:06 | Hospitalist Progress Note ---
Date of Service May 28, 2023 Assessment & Plan (1) Cellulitis of right lower leg: Plan: Patient presents to the hospital worsening lower extremity redness, more on the right Diagnosed with cellulitis which failed outpatient management with oral antibiotics. Initially placed on IV daptomycin. Area of cellulitis is much improved Will switch to IV ceftriaxone Complaint of right ankle pain, x-ray did not show any acute pathology no fracture no dislocation only swelling (2) Leucocytosis: Plan: Although his WBC has not come down significantly since admission. I suspect this is due to steroids rather than worsening infection. Her area of the cellulitis is much better (3) Chronic venous insufficiency: Plan: Uses MOSHE hose. Leg elevation. Continue torsemide (4) Hypertension: Plan: Systolic blood pressure mildly elevated. Patient not on any antihypertensives at home currently (5) Thrombocythemia: Plan: Recently started on hydroxyurea by hematology. Serial labs (6) CKD (chronic kidney disease) stage 2, GFR 60-89 ml/min: Plan: Monitor intake and output. Serial labs Plan Anticipate eventual discharge back to home on oral antibiotic later this week Admission and Anticipated Discharge Date Admission Date: May 26, 2023 Subjective Patient seen and examined today, lower extremity redness and swelling much better however patient complains of right ankle pain Review of Systems Review of Systems: All systems reviewed are negative, apart from the ones contained in the history. Physical Exam Physical Exam: The patient is awake, alert and oriented 3, well developed and well nourished, normocephalic and atraumatic, lying in bed and in no acute distress. HEENT--PERRL, EOMI, mucous membranes and oropharynx mildly dry Neck--supple. No JVD. No bruits. Thyroid normal, trachea midline, no adenopathy. Heart--normal S1 and S2. No murmurs, rubs or gallops. Lungs--clear bilaterally, no respiratory distress, no accessory muscle use. Abdomen--normal bowel sounds and soft. Mild epigastric and left sided abdominal pain Extremities--bilateral pitting leg edema Dermatologic--right lower extremity redness Neurologic--cranial nerves II through XII grossly intact. Rheumatologic--normal range of motion. Psychiatric--normal affect. Results & Data Results & Data Vital Signs (Past 12 Hours) Vital Signs Temp Pulse Resp BP Pulse Ox O2 Del Method 11/21/23 08:25 97.9 F 84 18 165/78 H 95 Room Air PG Care Time/CCT Total # of Minutes Spent Total Time Spent with Patient: Total time spent is greater than 50% in coordination of care (as documented) at patient's floor/unit and/or counseling patient: Coding Level of Care Code 46273 SUB INP/OBS CARE 2/35MIN Diagnoses Cellulitis of right lower leg L03.115 Leucocytosis D72.829 Chronic venous insufficiency I87.2 Hypertension I10 Thrombocythemia D75.839 CKD (chronic kidney disease) stage 2, GFR 60-89 ml/min N18.2 Time Spent (min) 35
[2023-05-28] MEDS: traMADol HCL 50 MG TABLET PO PRN (12:13)
[2023-05-29] MEDS ORDERED: ALENDRONATE SODIUM 70 MG TAB PO SCH (06:30)
[2023-05-29 07:26] LABS: Basophils % (auto) 0.5 %; Eosinophils % (auto) 1.5 %; Hemoglobin 11.6 g/dl (12.0-16.0); Immature Granulocytes # (auto) 0.13 K/uL (0.01-0.20); Immature Granulocytes % (auto) 0.6 %; Lymphocytes # (auto) 1.76 K/uL (1.20-3.40); Lymphocytes % (auto) 8.7 %; Mean Corpuscular Hemoglobin 28.6 pg (25.0-34.0); Mean Corpuscular Hgb Conc 30.5 g/dL (32.0-36.0); Mean Corpuscular Volume 93.6 fL (80.0-100.0); Mean Platelet Volume 9.8 fL (9.4-12.4); Monocytes # (auto) 1.62 K/uL (0.11-0.59); Neutrophils # (auto) 16.22 K/uL (1.40-6.50); Neutrophils % (auto) 80.7 %; Platelet Count 679 K/uL (130-400); RDW Coefficient of Variation 19.1 % (11.5-14.5); RDW Standard Deviation 64.1 fL (36.4-46.3); Red Blood Count 4.06 M/uL (4.20-5.40); White Blood Count 20.13 K/ul (4.8-10.8)
[2023-05-29 07:58] LABS: BUN Creatinine Ratio 24.8 (10-20); Calcium 9.1 mg/dl (8.6-10.3); Est GFR (African American) 34.2 ml/min; Est GFR (Non-African American) 29.5 ml/min; Potassium 3.9 mmol/L (3.5-5.1)
[2023-05-29] MEDS: PANTOprazole 40 MG TAB PO SCH ×2 (08:05→20:52)
[2023-05-29] MEDS: allopurinoL 100 MG TAB PO SCH (08:05)
[2023-05-29] MEDS: HYDROXYUREA 500 MG CAP PO SCH (08:05)
[2023-05-29] MEDS: POTASSIUM CHLORIDE CRTAB 20 MEQ TABCR PO SCH ×2 (08:05→20:52)
[2023-05-29] MEDS: TORSEMIDE 10 MG TAB PO SCH (08:05)
[2023-05-29] MEDS: EZETIMIBE 10 MG TAB PO SCH (08:05)
[2023-05-29] MEDS: IPRATROPIUM BROMIDE NASAL SPRAY 0.06% 15ML NAE SCH ×2 (08:06→20:51)
[2023-05-29] MEDS: HEPARIN SOD 5,000 UNIT/0.5 ML VIAL SQ SCH ×2 (08:06→20:53)
[2023-05-29] MEDS: cefTRIAXone SODIUM 2,000 MG in DEXTROSE 5 % MINI-B 50 ML IV SCH (08:06)
[2023-05-29] MEDS: ASPIRIN 81 MG ECTAB PO SCH (09:15)
[2023-05-29] MEDS: DOCUSATE SODIUM 100 MG CAP PO SCH ×2 (09:16→20:51)
--- NOTE | 2023-05-29 14:34 | Hospitalist Progress Note ---
Date of Service May 29, 2023 Assessment & Plan (1) Cellulitis of right lower leg: Plan: Patient presents to the hospital worsening lower extremity redness, more on the right Diagnosed with cellulitis which failed outpatient management with oral antibiotics. Initially placed on IV daptomycin. Area of cellulitis is much improved Will switch to IV ceftriaxone Complaint of right ankle pain, x-ray did not show any acute pathology no fracture no dislocation only swelling, Tramadol working for her (2) Leucocytosis: Plan: Cellulitis is better Elevated WBc now due to steroids (3) Chronic venous insufficiency: Plan: Uses MOSHE hose. Leg elevation. Continue torsemide (4) Hypertension: Plan: Systolic blood pressure mildly elevated. Patient not on any antihypertensives at home currently (5) Thrombocythemia: Plan: Recently started on hydroxyurea by hematology. Serial labs (6) CKD (chronic kidney disease) stage 2, GFR 60-89 ml/min: Plan: Monitor intake and output. Serial labs Plan Patient agreeable to [facility] Admission and Anticipated Discharge Date Admission Date: May 26, 2023 Subjective Patient seen and examined today, lower extremity redness and swelling much better, right ankle pain better after Tramadol Review of Systems Review of Systems: All systems reviewed are negative, apart from the ones contained in the history. Physical Exam Physical Exam: The patient is awake, alert and oriented 3, well developed and well nourished, normocephalic and atraumatic, lying in bed and in no acute distress. HEENT--PERRL, EOMI, mucous membranes and oropharynx mildly dry Neck--supple. No JVD. No bruits. Thyroid normal, trachea midline, no adenopathy. Heart--normal S1 and S2. No murmurs, rubs or gallops. Lungs--clear bilaterally, no respiratory distress, no accessory muscle use. Abdomen--normal bowel sounds and soft. Mild epigastric and left sided abdominal pain Extremities--bilateral pitting leg edema Dermatologic--right lower extremity redness Neurologic--cranial nerves II through XII grossly intact. Rheumatologic--normal range of motion. Psychiatric--normal affect. Results & Data Results & Data Vital Signs (Past 12 Hours) Vital Signs Temp Pulse Resp BP Pulse Ox O2 Del Method 05/29/23 09:42 Room Air 05/29/23 07:32 98.1 F 62 16 118/71 97 Room Air PG Care Time/CCT Total # of Minutes Spent Total Time Spent with Patient: Total time spent is greater than 50% in coordination of care (as documented) at patient's floor/unit and/or counseling patient: Coding Level of Care Code 02814 SUB INP/OBS CARE 2/35MIN Diagnoses Cellulitis of right lower leg L03.115 Leucocytosis D72.829 Chronic venous insufficiency I87.2 Hypertension I10 Thrombocythemia D75.839 CKD (chronic kidney disease) stage 2, GFR 60-89 ml/min N18.2 Time Spent (min) 35
[2023-05-29] MEDS ORDERED: DOCUSATE SODIUM 100 MG CAP PO ONE (22:20)
[2023-05-30 07:06] LABS: Basophils # (auto) 0.11 K/uL (0.00-0.20); Basophils % (auto) 0.6 %; Eosinophils # (auto) 0.26 K/uL (0.00-0.50); Eosinophils % (auto) 1.4 %; Hematocrit (blood only) 37.4 % (37.0-47.0); Hemoglobin 11.8 g/dl (12.0-16.0); Immature Granulocytes # (auto) 0.15 K/uL (0.01-0.20); Immature Granulocytes % (auto) 0.8 %; Lymphocytes % (auto) 8.7 %; Mean Corpuscular Hemoglobin 29.4 pg (25.0-34.0); Mean Corpuscular Hgb Conc 31.6 g/dL (32.0-36.0); Mean Corpuscular Volume 93.3 fL (80.0-100.0); Mean Platelet Volume 9.8 fL (9.4-12.4); Monocytes # (auto) 1.58 K/uL (0.11-0.59); Monocytes % (auto) 8.6 %; Neutrophils # (auto) 14.75 K/uL (1.40-6.50); Neutrophils % (auto) 79.9 %; Platelet Count 647 K/uL (130-400); RDW Standard Deviation 62.8 fL (36.4-46.3); Red Blood Count 4.01 M/uL (4.20-5.40); White Blood Count 18.45 K/ul (4.8-10.8)
[2023-05-30 07:16] LABS: BUN Creatinine Ratio 30.4 (10-20); Calcium 9.2 mg/dl (8.6-10.3); Creatinine Clr Calc Pharmacy 24.9 ml/min; Est GFR (Non-African American) 29.3 ml/min; Potassium 4.1 mmol/L (3.5-5.1)
[2023-05-30] MEDS: HYDROXYUREA 500 MG CAP PO SCH (07:39)
[2023-05-30] MEDS: EZETIMIBE 10 MG TAB PO SCH (07:39)
[2023-05-30] MEDS: ASPIRIN 81 MG ECTAB PO SCH (07:40)
[2023-05-30] MEDS: POTASSIUM CHLORIDE CRTAB 20 MEQ TABCR PO SCH ×2 (07:41→20:27)
[2023-05-30] MEDS: predniSONE 5 MG TAB PO SCH (07:42)
[2023-05-30] MEDS: allopurinoL 100 MG TAB PO SCH (07:42)
[2023-05-30] MEDS: TORSEMIDE 10 MG TAB PO SCH (07:42)
[2023-05-30] MEDS: PANTOprazole 40 MG TAB PO SCH ×2 (07:50→20:27)
[2023-05-30] MEDS: cefTRIAXone SODIUM 2,000 MG in DEXTROSE 5 % MINI-B 50 ML IV SCH (07:51)
[2023-05-30] MEDS: HEPARIN SOD 5,000 UNIT/0.5 ML VIAL SQ SCH ×2 (08:06→20:26)
[2023-05-30] MEDS: IPRATROPIUM BROMIDE NASAL SPRAY 0.06% 15ML NAE SCH ×2 (08:07→20:27)
[2023-05-30] MEDS: DOCUSATE SODIUM 100 MG CAP PO SCH ×2 (08:08→20:26)
--- NOTE | 2023-05-30 11:20 | Hospitalist Progress Note ---
Date of Service May 30, 2023 Assessment & Plan (1) Cellulitis of right lower leg: Plan: Patient presented to the hospital worsening lower extremity redness, more on the right Diagnosed with cellulitis which failed outpatient management with oral antibiotics. Initially placed on IV daptomycin. Area of cellulitis is much improved Will continue IV ceftriaxone, switch to p.o. upon discharge Complaint of right ankle pain, x-ray did not show any acute pathology no fracture no dislocation only swelling, Tramadol working for her (2) Leucocytosis: Plan: Cellulitis is better Elevated WBc now due to steroids (3) Chronic venous insufficiency: Plan: Uses MOSHE hose. Leg elevation. Continue torsemide (4) Hypertension: Plan: Systolic blood pressure mildly elevated. Patient not on any antihypertensives at home currently (5) Thrombocythemia: Plan: Recently started on hydroxyurea by hematology. Serial labs (6) CKD (chronic kidney disease) stage 2, GFR 60-89 ml/min: Plan: Monitor intake and output. Serial labs Plan Patient agreeable to [facility] Admission and Anticipated Discharge Date Admission Date: May 26, 2023 Subjective Patient seen and examined today, lower extremity redness and swelling much better, right ankle pain better after Tramadol, sitting up in the chair Review of Systems Review of Systems: All systems reviewed are negative, apart from the ones contained in the history. Physical Exam Physical Exam: The patient is awake, alert and oriented 3, well developed and well nourished, normocephalic and atraumatic, lying in bed and in no acute distress. HEENT--PERRL, EOMI, mucous membranes and oropharynx mildly dry Neck--supple. No JVD. No bruits. Thyroid normal, trachea midline, no adenopathy. Heart--normal S1 and S2. No murmurs, rubs or gallops. Lungs--clear bilaterally, no respiratory distress, no accessory muscle use. Abdomen--normal bowel sounds and soft. Mild epigastric and left sided abdominal pain Extremities--bilateral pitting leg edema Dermatologic--right lower extremity redness Neurologic--cranial nerves II through XII grossly intact. Rheumatologic--normal range of motion. Psychiatric--normal affect. Results & Data Results & Data Vital Signs (Past 12 Hours) Vital Signs Temp Pulse Resp BP Pulse Ox O2 Del Method 05/30/23 07:50 97.3 F L 69 16 118/73 97 Room Air 05/30/23 07:30 Room Air PG Care Time/CCT Total # of Minutes Spent Total Time Spent with Patient: Total time spent is greater than 50% in coordination of care (as documented) at patient's floor/unit and/or counseling patient: Coding Level of Care Code 14543 SUB INP/OBS CARE 2/35MIN Diagnoses Cellulitis of right lower leg L03.115 Leucocytosis D72.829 Chronic venous insufficiency I87.2 Hypertension I10 Thrombocythemia D75.839 CKD (chronic kidney disease) stage 2, GFR 60-89 ml/min N18.2 Time Spent (min) 35
[2023-05-31] MEDS: DOCUSATE SODIUM 100 MG CAP PO SCH ×2 (08:48→19:42)
[2023-05-31] MEDS: POTASSIUM CHLORIDE CRTAB 20 MEQ TABCR PO SCH ×2 (08:48→20:03)
[2023-05-31] MEDS: HEPARIN SOD 5,000 UNIT/0.5 ML VIAL SQ SCH ×2 (08:49→20:03)
[2023-05-31] MEDS: TORSEMIDE 10 MG TAB PO SCH (08:49)
[2023-05-31] MEDS: allopurinoL 100 MG TAB PO SCH (08:49)
[2023-05-31] MEDS: ASPIRIN 81 MG ECTAB PO SCH (08:49)
[2023-05-31] MEDS: IPRATROPIUM BROMIDE NASAL SPRAY 0.06% 15ML NAE SCH ×2 (08:49→20:02)
[2023-05-31] MEDS: EZETIMIBE 10 MG TAB PO SCH (08:50)
[2023-05-31] MEDS: HYDROXYUREA 500 MG CAP PO SCH (08:50)
[2023-05-31] MEDS: PANTOprazole 40 MG TAB PO SCH ×2 (08:50→20:03)
[2023-05-31] MEDS: cefTRIAXone SODIUM 2,000 MG in DEXTROSE 5 % MINI-B 50 ML IV SCH (08:55)
[2023-05-31 09:23] LABS: Hematocrit (blood only) 43.3 % (37.0-47.0); Hemoglobin 13.5 g/dl (12.0-16.0); Mean Corpuscular Hgb Conc 31.2 g/dL (32.0-36.0); Mean Corpuscular Volume 93.1 fL (80.0-100.0); Mean Platelet Volume 9.8 fL (9.4-12.4); Platelet Count 751 K/uL (130-400); RDW Coefficient of Variation 19.4 % (11.5-14.5); RDW Standard Deviation 63.1 fL (36.4-46.3); Red Blood Count 4.65 M/uL (4.20-5.40); White Blood Count 15.89 K/ul (4.8-10.8)
[2023-05-31 09:39] LABS: BUN Creatinine Ratio 29.9 (10-20); Calcium 10.2 mg/dl (8.6-10.3); Creatinine Clr Calc Pharmacy 22.6 ml/min; Est GFR (African American) 30.2 ml/min; Est GFR (Non-African American) 26.1 ml/min; Potassium 4.7 mmol/L (3.5-5.1)
--- NOTE | 2023-05-31 10:44 | Hospitalist Progress Note ---
Date of Service May 31, 2023 Assessment & Plan (1) Cellulitis of right lower leg: Plan: Patient presented to the hospital worsening lower extremity redness, more on the right Diagnosed with cellulitis which failed outpatient management with oral antibiotics. Initially placed on IV daptomycin. Area of cellulitis is much improved Will continue IV ceftriaxone, switch to p.o. upon discharge Complaint of right ankle pain, x-ray did not show any acute pathology no fracture no dislocation only swelling, Tramadol working for her (2) Leucocytosis: Plan: Cellulitis is better Elevated WBc now due to steroids (3) Chronic venous insufficiency: Plan: Uses MOSHE hose. Leg elevation. Continue torsemide (4) Hypertension: Plan: Systolic blood pressure mildly elevated. Patient not on any antihypertensives at home currently (5) Thrombocythemia: Plan: Recently started on hydroxyurea by hematology. Serial labs (6) CKD (chronic kidney disease) stage 2, GFR 60-89 ml/min: Plan: Monitor intake and output. Serial labs Worsening kidney function, will hold Torsemide Plan Patient agreeable to [facility] Admission and Anticipated Discharge Date Admission Date: May 26, 2023 Subjective Patient seen and examined today, lower extremity redness and swelling much better, right ankle pain better after Tramadol, sitting up in the chair, participating in PT Review of Systems Review of Systems: All systems reviewed are negative, apart from the ones contained in the history. Physical Exam Physical Exam: The patient is awake, alert and oriented 3, well developed and well nourished, normocephalic and atraumatic, lying in bed and in no acute distress. HEENT--PERRL, EOMI, mucous membranes and oropharynx mildly dry Neck--supple. No JVD. No bruits. Thyroid normal, trachea midline, no adenopathy. Heart--normal S1 and S2. No murmurs, rubs or gallops. Lungs--clear bilaterally, no respiratory distress, no accessory muscle use. Abdomen--normal bowel sounds and soft. Mild epigastric and left sided abdominal pain Extremities--bilateral pitting leg edema Dermatologic--right lower extremity redness Neurologic--cranial nerves II through XII grossly intact. Rheumatologic--normal range of motion. Psychiatric--normal affect. Results & Data Results & Data Vital Signs (Past 12 Hours) Vital Signs Temp Pulse Resp BP Pulse Ox O2 Del Method 05/31/23 07:31 Room Air 05/31/23 07:21 97.3 F L 67 16 138/73 97 Room Air PG Care Time/CCT Total # of Minutes Spent Total Time Spent with Patient: Total time spent is greater than 50% in coordination of care (as documented) at patient's floor/unit and/or counseling patient: Coding Level of Care Code 72881 SUB INP/OBS CARE 2/35MIN Diagnoses Cellulitis of right lower leg L03.115 Leucocytosis D72.829 Chronic venous insufficiency I87.2 Hypertension I10 Thrombocythemia D75.839 CKD (chronic kidney disease) stage 2, GFR 60-89 ml/min N18.2 Time Spent (min) 35
[2023-05-31] MEDS: traMADol HCL 50 MG TABLET PO PRN (11:38)
[2023-05-31] MEDS: MELATONIN 3 MG TAB PO PRN (21:27)
[2023-06-01] MEDS: cefTRIAXone SODIUM 2,000 MG in DEXTROSE 5 % MINI-B 50 ML IV SCH (07:51)
[2023-06-01] MEDS: EZETIMIBE 10 MG TAB PO SCH (08:03)
[2023-06-01] MEDS: predniSONE 5 MG TAB PO SCH (08:03)
[2023-06-01] MEDS: allopurinoL 100 MG TAB PO SCH (08:03)
[2023-06-01] MEDS: DOCUSATE SODIUM 100 MG CAP PO SCH ×2 (08:03→20:08)
[2023-06-01] MEDS: ASPIRIN 81 MG ECTAB PO SCH (08:03)
[2023-06-01] MEDS: PANTOprazole 40 MG TAB PO SCH ×2 (08:04→20:12)
[2023-06-01] MEDS: POTASSIUM CHLORIDE CRTAB 20 MEQ TABCR PO SCH ×2 (08:04→20:12)
[2023-06-01] MEDS: HEPARIN SOD 5,000 UNIT/0.5 ML VIAL SQ SCH ×2 (08:04→20:12)
[2023-06-01] MEDS: IPRATROPIUM BROMIDE NASAL SPRAY 0.06% 15ML NAE SCH ×2 (08:05→20:12)
[2023-06-01] MEDS: HYDROXYUREA 500 MG CAP PO SCH (08:34)
[2023-06-01] MEDS ORDERED: cephALEXin 500 MG CAP PO SCH (09:00)
[2023-06-01 09:13] LABS: Hematocrit (blood only) 43.1 % (37.0-47.0); Hemoglobin 13.4 g/dl (12.0-16.0); Mean Corpuscular Hemoglobin 28.8 pg (25.0-34.0); Mean Corpuscular Hgb Conc 31.1 g/dL (32.0-36.0); Mean Corpuscular Volume 92.5 fL (80.0-100.0); Mean Platelet Volume 9.9 fL (9.4-12.4); Platelet Count 750 K/uL (130-400); RDW Coefficient of Variation 19.7 % (11.5-14.5); RDW Standard Deviation 63.4 fL (36.4-46.3); Red Blood Count 4.66 M/uL (4.20-5.40)
[2023-06-01 09:46] LABS: Calcium 10.4 mg/dl (8.6-10.3)
[2023-06-01 09:52] LABS: BUN Creatinine Ratio 34.6 (10-20); Creatinine Clr Calc Pharmacy 24.2 ml/min; Est GFR (Non-African American) 28.4 ml/min
--- NOTE | 2023-06-01 13:02 | Hospitalist Progress Note ---
Date of Service June 01, 2023 Assessment & Plan (1) Cellulitis of right lower leg: Plan: Patient presented to the hospital worsening lower extremity redness, more on the right Diagnosed with cellulitis which failed outpatient management with oral antibiotics. Initially placed on IV daptomycin. Area of cellulitis is much improved Will stop IV ceftriaxone, switch to p.o. Cephalexin 500mg for 5 more days Complaint of right ankle pain, x-ray did not show any acute pathology no fracture no dislocation only swelling, Tramadol working for her (2) Leucocytosis: Plan: Cellulitis is better Elevated WBc now due to steroids (3) Chronic venous insufficiency: Plan: Uses MOSHE hose. Leg elevation. Continue torsemide (4) Hypertension: Plan: Systolic blood pressure mildly elevated. Patient not on any antihypertensives at home currently (5) Thrombocythemia: Plan: Recently started on hydroxyurea by hematology. Serial labs (6) CKD (chronic kidney disease) stage 2, GFR 60-89 ml/min: Plan: Monitor intake and output. Serial labs Worsening kidney function, will hold Torsemide Plan Patient agreeable to [facility] for Rehab Admission and Anticipated Discharge Date Admission Date: May 26, 2023 Subjective Patient seen and examined today, lower extremity redness and swelling much better, right ankle pain better after Tramadol, sitting up in the chair, participating in PT Review of Systems Review of Systems: All systems reviewed are negative, apart from the ones contained in the history. Physical Exam Physical Exam: The patient is awake, alert and oriented 3, well developed and well nourished, normocephalic and atraumatic, lying in bed and in no acute distress. HEENT--PERRL, EOMI, mucous membranes and oropharynx mildly dry Neck--supple. No JVD. No bruits. Thyroid normal, trachea midline, no adenopathy. Heart--normal S1 and S2. No murmurs, rubs or gallops. Lungs--clear bilaterally, no respiratory distress, no accessory muscle use. Abdomen--normal bowel sounds and soft. Mild epigastric and left sided abdominal pain Extremities--bilateral pitting leg edema Dermatologic--right lower extremity redness Neurologic--cranial nerves II through XII grossly intact. Rheumatologic--normal range of motion. Psychiatric--normal affect. Results & Data Results & Data Vital Signs (Past 12 Hours) Vital Signs Temp Pulse Resp BP Pulse Ox O2 Del Method 06/01/23 07:33 97.5 F L 71 16 116/64 96 Room Air PG Care Time/CCT Total # of Minutes Spent Total Time Spent with Patient: Total time spent is greater than 50% in coordination of care (as documented) at patient's floor/unit and/or counseling patient: Coding Level of Care Code 87532 SUB INP/OBS CARE 2/35MIN Diagnoses Cellulitis of right lower leg L03.115 Leucocytosis D72.829 Chronic venous insufficiency I87.2 Hypertension I10 Thrombocythemia D75.839 CKD (chronic kidney disease) stage 2, GFR 60-89 ml/min N18.2 Time Spent (min) 35
[2023-06-01] MEDS: cephALEXin 500 MG CAP PO SCH (20:12)
[2023-06-01] MEDS: MELATONIN 3 MG TAB PO PRN (22:44)
[2023-06-02] MEDS: cephALEXin 500 MG CAP PO SCH ×2 (08:05→20:28)
[2023-06-02] MEDS: HEPARIN SOD 5,000 UNIT/0.5 ML VIAL SQ SCH ×2 (08:05→20:28)
[2023-06-02] MEDS: PANTOprazole 40 MG TAB PO SCH ×2 (08:06→20:29)
[2023-06-02] MEDS: ASPIRIN 81 MG ECTAB PO SCH (08:06)
[2023-06-02] MEDS: POTASSIUM CHLORIDE CRTAB 20 MEQ TABCR PO SCH (08:06)
[2023-06-02] MEDS: DOCUSATE SODIUM 100 MG CAP PO SCH ×2 (08:06→20:29)
[2023-06-02] MEDS: allopurinoL 100 MG TAB PO SCH (08:07)
[2023-06-02] MEDS: EZETIMIBE 10 MG TAB PO SCH (08:08)
[2023-06-02] MEDS: HYDROXYUREA 500 MG CAP PO SCH (08:09)
[2023-06-02] MEDS: IPRATROPIUM BROMIDE NASAL SPRAY 0.06% 15ML NAE SCH ×2 (08:09→20:30)
[2023-06-02 08:33] LABS: Hemoglobin 12.8 g/dl (12.0-16.0); Mean Corpuscular Hgb Conc 30.5 g/dL (32.0-36.0); Mean Platelet Volume 9.9 fL (9.4-12.4); Platelet Count 741 K/uL (130-400); RDW Coefficient of Variation 19.1 % (11.5-14.5); RDW Standard Deviation 64.5 fL (36.4-46.3); Red Blood Count 4.42 M/uL (4.20-5.40); White Blood Count 14.86 K/ul (4.8-10.8)
[2023-06-02 08:48] LABS: Calcium 10.4 mg/dl (8.6-10.3); Creatinine Clr Calc Pharmacy 26.2 ml/min; Est GFR (African American) 36.2 ml/min; Est GFR (Non-African American) 31.2 ml/min; Potassium 4.9 mmol/L (3.5-5.1)
--- NOTE | 2023-06-02 11:32 | Hospitalist Progress Note ---
Date of Service June 02, 2023 Assessment & Plan (1) Cellulitis of right lower leg: Plan: Patient presented to the hospital worsening lower extremity redness, more on the right Diagnosed with cellulitis which failed outpatient management with oral antibiotics. Initially placed on IV daptomycin. Area of cellulitis is much improved Will stop IV ceftriaxone, switch to p.o. Cephalexin 500mg for 5 more days Complaint of right ankle pain, x-ray did not show any acute pathology no fracture no dislocation only swelling, Tramadol working for her (2) Leucocytosis: Plan: Cellulitis is better Elevated WBc now due to steroids (3) Chronic venous insufficiency: Plan: Uses MOSHE hose. Leg elevation. Continue torsemide (4) Hypertension: Plan: BP now wnl, Patient not on any antihypertensives at home currently (5) Thrombocythemia: Plan: Recently started on hydroxyurea by hematology. Serial labs (6) CKD (chronic kidney disease) stage 2, GFR 60-89 ml/min: Plan: Monitor intake and output. Serial labs Worsening kidney function, will hold Torsemide Plan Patient agreeable to [facility] for Rehab Admission and Anticipated Discharge Date Admission Date: May 26, 2023 Subjective Patient seen and examined today, lower extremity redness and swelling much better, right ankle pain better after Tramadol, sitting up in the chair, participating in PT, awaiting placement Review of Systems Review of Systems: All systems reviewed are negative, apart from the ones contained in the history. Physical Exam Physical Exam: The patient is awake, alert and oriented 3, well developed and well nourished, normocephalic and atraumatic, lying in bed and in no acute distress. HEENT--PERRL, EOMI, mucous membranes and oropharynx mildly dry Neck--supple. No JVD. No bruits. Thyroid normal, trachea midline, no adenopathy. Heart--normal S1 and S2. No murmurs, rubs or gallops. Lungs--clear bilaterally, no respiratory distress, no accessory muscle use. Abdomen--normal bowel sounds and soft. Mild epigastric and left sided abdominal pain Extremities--bilateral pitting leg edema Dermatologic--right lower extremity redness Neurologic--cranial nerves II through XII grossly intact. Rheumatologic--normal range of motion. Psychiatric--normal affect. Results & Data Results & Data Vital Signs (Past 12 Hours) Vital Signs Temp Pulse Pulse Resp BP BP Pulse Ox 06/02/23 07:54 98.1 F 65 16 126/68 96 06/02/23 07:06 97.3 F L 63 16 132/70 97 O2 Del Method 06/02/23 07:54 Room Air 06/02/23 07:06 Room Air PG Care Time/CCT Total # of Minutes Spent Total Time Spent with Patient: Total time spent is greater than 50% in coordination of care (as documented) at patient's floor/unit and/or counseling patient: Coding Level of Care Code 29312 SUB INP/OBS CARE 2/35MIN Diagnoses Cellulitis of right lower leg L03.115 Leucocytosis D72.829 Chronic venous insufficiency I87.2 Hypertension I10 Thrombocythemia D75.839 CKD (chronic kidney disease) stage 2, GFR 60-89 ml/min N18.2 Time Spent (min) 35
[2023-06-03] MEDS: traMADol HCL 50 MG TABLET PO PRN (00:15)
[2023-06-03] MEDS: MELATONIN 3 MG TAB PO PRN (00:16)
[2023-06-03] MEDS ORDERED: ACETAMINOPHEN 500 MG TAB PO PRN (08:39)
[2023-06-03] MEDS: DOCUSATE SODIUM 100 MG CAP PO SCH (09:10)
[2023-06-03] MEDS: cephALEXin 500 MG CAP PO SCH (09:10)
[2023-06-03] MEDS: ASPIRIN 81 MG ECTAB PO SCH (09:11)
[2023-06-03] MEDS: predniSONE 5 MG TAB PO SCH (09:11)
[2023-06-03] MEDS: EZETIMIBE 10 MG TAB PO SCH (09:11)
[2023-06-03] MEDS: allopurinoL 100 MG TAB PO SCH (09:11)
[2023-06-03] MEDS: HEPARIN SOD 5,000 UNIT/0.5 ML VIAL SQ SCH (09:11)
[2023-06-03] MEDS: HYDROXYUREA 500 MG CAP PO SCH (09:11)
[2023-06-03] MEDS: PANTOprazole 40 MG TAB PO SCH (09:11)
[2023-06-03] MEDS: IPRATROPIUM BROMIDE NASAL SPRAY 0.06% 15ML NAE SCH (09:11)
[2023-06-03 10:13] LABS: Hemoglobin 12.5 g/dl (12.0-16.0); Mean Corpuscular Hemoglobin 29.4 pg (25.0-34.0); Mean Corpuscular Hgb Conc 31.3 g/dL (32.0-36.0); Mean Corpuscular Volume 94.1 fL (80.0-100.0); Mean Platelet Volume 9.9 fL (9.4-12.4); Platelet Count 673 K/uL (130-400); RDW Coefficient of Variation 19.1 % (11.5-14.5); RDW Standard Deviation 63.1 fL (36.4-46.3); Red Blood Count 4.25 M/uL (4.20-5.40); White Blood Count 19.89 K/ul (4.8-10.8)
[2023-06-03 10:30] LABS: BUN Creatinine Ratio 39.4 (10-20); Calcium 10.3 mg/dl (8.6-10.3); Creatinine Clr Calc Pharmacy 29.8 ml/min; Est GFR (African American) 42.2 ml/min; Est GFR (Non-African American) 36.4 ml/min; Potassium 4.3 mmol/L (3.5-5.1)
--- NOTE | 2023-06-03 14:16 | Discharge Summary ---
Date of Service June 03, 2023 Admission HPI Per Admitting Provider Is an 88-year-old female with a history of chronic venous insufficiency, CKD, rotator cuff arthropathy, polymyalgia who presents to the hospital today for evaluation of a right lower extremity swelling and redness. According to the patient she says she has some baseline leg swelling and takes Lasix at home however over the past few days she noticed that both lower extremities were getting red especially the right lower extremity. She denies fevers or chills and states she wears MOSHE hose but because of the worsening redness she wanted to come to the hospital for evaluation. Here in the emergency department WBC was 17,000, serum creatinine 1.44 almost at baseline. She was started on IV antibiotics and will be admitted to the hospital further management. Principal Diagnosis Bilateral lower extremity cellulitis Discharge Exam General-alert and oriented x3, no fevers, no chills HEENT-head atraumatic and normocephalic, pupils equal and reactive to light, extraocular muscles intact Neck-no lymphadenopathy or thyromegaly, trachea midline Chest-clear to auscultation percussion. No rales wheezing or rhonchi Cardiac-regular rate and rhythm, normal S1 and S2 Abdomen-normal bowel sounds, nontender, no hepatosplenomegaly Extremities-bilateral lower extremity cellulitic process has markedly improved and nearly resolved. Neuro-cranial nerves II through XII intact, motor and sensory function within normal limits, strength symmetrical, no focal deficits Psych-normal affect, normal mood Discharge Data Allergies Allergy/AdvReac Type Severity Reaction Status Date / Time pravastatin Allergy Unknown RABDOMYELITIS Verified 05/26/23 23:21 (?SPELLING), ELEVATED MUSCLE AND LIVER ENZYMES sulfamethoxazole Allergy Unknown Unknown Verified 05/26/23 23:21 [From Bactrim] trimethoprim [From Bactrim] Allergy Unknown Unknown Verified 05/26/23 23:21 nitrofurantoin AdvReac Severe Diarrhea Verified 05/26/23 23:21 [From Macrobid] Penicillins AdvReac Mild Diarrhea Verified 05/26/23 23:21 lisinopril AdvReac Unknown COUGH Verified 05/26/23 23:21 Consultations 05/26/23 23:34 ED Decision to Admit Stat Ordered Studies 05/26/23 22:47 US venous doppler [facility] Urgent Hospital Course (1) Cellulitis of right lower leg: Patient presented to the hospital worsening lower extremity redness, more on the right Diagnosed with cellulitis which failed outpatient management with oral antibiotics. Initially placed on IV daptomycin. Area of cellulitis is much improved Treated with Rocephin then switched to oral cephalexin Complaint of right ankle pain, x-ray did not show any acute pathology no fracture no dislocation only swelling, Tramadol working for her (2) Leucocytosis: Cellulitis is better Elevated WBc now due to steroids (3) Chronic venous insufficiency: Uses MOSHE hose. Leg elevation. Continue torsemide (4) Hypertension: BP now wnl, Patient not on any antihypertensives at home currently (5) Thrombocythemia: Recently started on hydroxyurea by hematology. Serial labs (6) CKD (chronic kidney disease) stage 2, GFR 60-89 ml/min: Monitor intake and output. Serial labs Plan The patient now desires to go home and not to [facility]. She is medically stable for discharge to home with home health services today, June 03 Total Time Total Time Spent Total Time Spent (In Minutes): 45-minute Discharge Plan Discharge Items Patient Disposition: Home - Home Health Services Reason For Visit: CELLULITIS Discharge Diagnosis: Bilateral lower extremity cellulitis Condition on Discharge: Good Activity: Resume your previous activity Non-emergency contact: Primary Care Provider Call non-emergency contact if: your symptoms worsen Follow-up/Referrals: [facility] [Primary Care Provider] - Diet: Regular and Heart Healthy Addtl Attending Provider Instructions: Take cephalexin oral antibiotic for 5 more days Pending Studies at Discharge: No Stand-Alone Forms: My [facility] [employer], Smoking Cessation Medications and DC Order Prescriptions: New cephalexin 500 mg Capsule 500 mg PO BID Qty: 10 0RF aspirin 81 mg Tablet,Delayed Release (Dr/Ec) 81 mg PO QAM Qty: 0 0RF Continued torsemide 10 mg tablet 10 mg PO DAILY omeprazole 20 mg Capsule,Delayed Release(Dr/Ec) 20 mg PO BID acetaminophen 500 mg Capsule 1,000 mg PO TID ezetimibe [Zetia] 10 mg Tablet 10 mg PO QAM Patient Comments: TAKE GENERIC FORM PreserVision AREDS-2 [id number] Capsule 1 tab PO BID alendronate 70 mg tablet 70 mg PO WE prednisone 5 mg tablet 5 mg PO Q OTHER DAY Rx Instructions: Takes on odd days allopurinol 100 mg tablet 200 mg PO DAILY docusate sodium [Colace] 100 mg Capsule 100 mg PO DAILY melatonin 10 mg Tablet 10 mg PO HS [place] 8.4 gram powder in packet 8.4 g PO DAILY hydroxyurea 500 mg capsule See Rx Instructions .ROUTE .COMPLEX Rx Instructions: take 1 capsule by mouth every day SATURDAY through SATURDAY TAKE 2 CAPSULES ON SATURDAY AND SATURDAY ipratropium bromide 21 mcg (0.03 %) spray,non-aerosol 2 spray INTRANASAL [facility] Discharge Orders: Discharge Order (Routine); Ordered 06/03/23 Ordered By: Rodrigo Baer Admission Data Admit Date/Time: 05/26/23 23:52 Attending Provider: Rodrigo Baer Admit Provider: Chente Albrecht [facility] Other Providers: Chente Albrecht; [facility] Coding Level of Care Code 43995 INP/OBS DISCH >30 MIN Diagnoses Cellulitis of right lower leg L03.115 Leucocytosis D72.829 Chronic venous insufficiency I87.2 Hypertension I10 Thrombocythemia D75.839 CKD (chronic kidney disease) stage 2, GFR 60-89 ml/min N18.2
== END 2023-06-03 16:07 | disposition home health service (06) | DRG 603 ==
LOC: ED 22:29 → 3N 23:52 → SUATTDRO 23:52 → 3N 05-27 01:03

== ENCOUNTER 2024-08-03 14:37 | Observation (INO) ==
[2024-08-03 15:15] LABS: iSTAT Creatinine 2.3 mg/dl (0.6-1.3); iSTAT Hemoglobin 14.3 g/dl (12.0-16.0); iSTAT Ionized Calcium 0.95 mmol/l (1.12-1.32); iSTAT Potassium 5.1 mmol/L (3.3-5.0)
[2024-08-03] MEDS: SODIUM CHLORIDE 0.9% 500 ML IV ONE (15:29)
[2024-08-03] MEDS: MAGNESIUM SULFATE / D5W 1 GM/100 ML BAG IV SCH ×2 (15:30→18:14)
[2024-08-03 15:37] LABS: Hematocrit (blood only) 38.7 % (37.0-47.0); Mean Corpuscular Hemoglobin 32.6 pg (25.0-34.0); Mean Corpuscular Volume 105.2 fL (80.0-100.0); Mean Platelet Volume 9.8 fL (9.4-12.4); Platelet Count 473 K/uL (130-400); RDW Coefficient of Variation 14.9 % (11.5-14.5); RDW Standard Deviation 57.1 fL (36.4-46.3); Red Blood Count 3.68 M/uL (4.20-5.40); White Blood Count 20.92 K/ul (4.8-10.8)
[2024-08-03 15:38] LABS: Albumin Globulin Ratio 1.7 (0.9-2); Albumin Level 4.4 gm/dl (3.4-5.0); BUN Creatinine Ratio 17.2 (10-20); Bilirubin,Total 0.6 mg/dl (0.2-1.0); Creatinine Clr Calc Pharmacy 33.9 ml/min; Globulin 2.6 gm/dl (2.5-4.0); Phosphorus 2.6 mg/dl (2.5-4.9); Potassium 4.3 mmol/L (3.5-5.1)
--- NOTE | 2024-08-03 15:49 | Emergency Department Note ---
Impression & Plan Hypomagnesemia, Leukocytosis, Diarrhea ED Provider Note NAME: JENNYFER WADE AGE: 89 SEX: F : 1935 ARRIVES VIA: Walk-In INFORMANT: Patient ED PROVIDER(S): Dorian Blanchard MD CHIEF COMPLAINT: Low magnesium, referred. PLAN: Disposition: Admit MEDICAL DECISION MAKING: The patient is a pleasant 89-year-old woman with a past medical history of esophageal reflux, hypertension, hyperlipidemia, CVI, dCHF history of rectocele, cystocele and uterine prolapse who has chronic indwelling Benson catheter since November of this year, polymyalgia rheumatica who presents to the emergency department via walk-in for evaluation of low magnesium which was identified on outpatient blood work last . Patient reports she has had ongoing watery diarrhea for the past month which she reports is essentially liquid. She has been taking Imodium to help minimize the frequency of this. She denies having any stool studies or CT imaging to assess this. She denies any fevers, chills, cough, congestion. She denies feeling weak or lightheaded. She denies any unsteadiness. She denies any recent antibiotics. On evaluation the patient is in no acute distress, afebrile with heart in the 90s-low 100s and vital signs otherwise stable. She appears clinically dry. Abdomen is nontender. EKG demonstrates right bundle branch block without overt acute ischemia. Appears similar to prior. WBC 20.9 K with neutrophilia and left shift. H/H within normal limits. Platelets are 473, nonspecific. Chemistry with bicarbonate of 20 but normal anion gap in setting of the patient's chronic diarrhea. Magnesium is 1.0 with IV repletion initiated. Potassium is within normal limits. LFTs are unremarkable. Procalcitonin is not elevated. TSH within normal limits stool studies are ordered however awaiting sample. CT of the abdomen pelvis was performed and is negative for acute intra-abdominal process. Specifically, no evidence of bowel obstruction, colitis. Given the patient's significant hypomagnesemia she does agree plan for admission for further management. Case was d/w Dr. Hien Armando admitting resident with Dr. Gale, [facility] hospitalist who will evaluate the patient for admission. Further management per admitting team. Triage Nursing notes reviewed and agree them. Prior/external medical records reviewed Vital Signs: reviewed Differential diagnosis: Infection, dehydration, metabolic abnormality, hypo/hyperglycemia, electrolyte disturbance, anemia, hypoxia, cardiac sources, intracerebral event, toxicologic, neurologic, as well as other pathologies. ER treatment provided: See below. Diagnostics interpreted by me: ECG: Sinus tachycardia, 111 bpm, no ectopy, right bundle branch block, no overt ST ovation or depression, similar to prior. Cardiac Monitoring: An order for continuous cardiac monitoring was placed and demonstrated Sinus tachycardia, 111 bpm, no ectopy Laboratory studies: See below Imaging studies: See below Consultation(s): Case was d/w Dr. Hien Armando admitting resident with Dr. Gale, [facility] hospitalist who will evaluate the patient for admission. HPI: The patient is a pleasant 89-year-old woman with a past medical history of esophageal reflux, hypertension, hyperlipidemia, history of rectocele, cystocele and uterine prolapse who has chronic indwelling Benson catheter since November of this year, polymyalgia rheumatica who presents to the emergency department via walk- in for evaluation of low magnesium which was identified on outpatient blood work last . Patient reports she has had ongoing watery diarrhea for the past month which she reports is essentially liquid. She has been taking Imodium to help minimize the frequency of this. She denies having any stool studies or CT imaging to assess this. She denies any fevers, chills, cough, congestion. She denies feeling weak or lightheaded. She denies any unsteadiness. She denies any recent antibiotics. ROS: See above HPI for pertinent positives & negatives. A total of 10 systems reviewed and were otherwise negative. VITALS:See Below PHYSICAL EXAMINATION: GENERAL: Awake, alert, in no distress HENT: Normocephalic, atraumatic. Oropharynx with dry mucous membranes and otherwise unremarkable. EYES: Normal conjunctiva. Sclera non-icteric. NECK: Supple. No nuchal rigidity. FROM. No JVD. RESPIRATORY: Clear to auscultation. CARDIAC: Regular rate, normal rhythm. Extremities warm and well perfused. Pulses equal. ABDOMEN: Soft, non-distended. No tenderness to palpation. No rebound or guarding. No masses. MUSCULOSKELETAL: Chest examination reveals no tenderness. The back is symmetrical on inspection without obvious abnormality. There is no CVA tenderness to palpation. No joint edema. LOWER EXTREMITIES: Calves are equal size bilaterally and non-tender. No edema. No discoloration. NEURO: Normal sensorium. No sensory or motor deficits noted. SKIN: No rash or jaundice noted. Dorian Blanchard MD Past Med/Surg History Problem List (Updated 08/04/24 @ 00:29 by Dorian Blanchard MD) Diarrhea (Acute) Leukocytosis (Acute) Hypomagnesemia (Acute) Urinary incontinence Osteoarthritis of knees, bilateral Leucocytosis Cellulitis of right lower leg (Acute) Recurrent UTI (urinary tract infection) Generalized weakness (Acute) Ambulatory dysfunction (Acute) Non-ST elevation CO (NSTEMI) (Acute) Rotator cuff arthropathy of both shoulders Bilateral primary osteoarthritis of knee Foreign body in left ear Pressure sore on buttocks Pessary maintenance Encounter for annual routine gynecological examination Rhabdomyolysis Facial contusion (Acute) Polymyalgia rheumatica Fall due to stumbling (Acute) Right wrist pain (Acute) Sepsis (Acute) Proximal muscle weakness (Acute) UTI (urinary tract infection) (Acute) History of tonsillectomy Status post meniscectomy History of fundoplication Leg pain, right (Acute) Thyroid disorder (Acute) Solitary thyroid nodule (Acute) SNHL (sensorineural hearing loss) (Acute) Reflux esophagitis (Acute) Macular degeneration (Acute) Lichen simplex chronicus (Acute) Other and unspecified hyperlipidemia (Acute) Hiatal hernia (Acute) Femoral bruit (Acute) Extremity atherosclerosis with intermittent claudication (Acute) Esophageal reflux (Acute) Dyslipidemia (Acute) Diverticulosis of colon (Acute) Carotid artery stenosis (Acute) Carotid art occ w/o infarc (Acute) Arthritis Acid reflux Encounter for pre-operative examination Uterine prolapse (Chronic) Rectocele (Acute) Cystocele, midline (Acute) Medical History CKD (chronic kidney disease) stage 2, GFR 60-89 ml/min Thrombocythemia Chronic venous insufficiency Hypertension CKD (chronic kidney disease) Osteoporosis Hard of hearing GERD (gastroesophageal reflux disease) Osteoarthritis High cholesterol High blood pressure History of Spontaneous Cystocele Adenomatous endometrial hyperplasia Surgical History Hx of left cataract extraction H/O dilation and curettage for MAB History of tonsillectomy and adenoidectomy H/O arthroscopic knee surgery RIGHT H/O colonoscopy History of endometrial biopsy History of repair of hiatal hernia Family History Aunt Breast cancer Father Hypertension Cerebral artery occlusion Mother TIA (transient ischemic attack) Osteoarthritis Rheumatoid arthritis Denies family history of Malignant hyperthermia Ovarian cancer Clotting disorder Colorectal cancer Social History Smoking Status: Never smoker Tobacco Type: Cigarettes Second Hand Exposure: No; Do You Dip or Chew Tobacco: No; Hx Alcohol Use: Yes Alcohol type: wine Hx Substance Use: No Preferred Language: Estonian Communication Ability: Effective Hearing Ability: Hard of Hearing [employer] Representative Required: No Beliefs That Will Affect Care: None marital status: Current Living Situation: Spouse and Other Current Living Situation Comment: [facility]. current occupational status: retired Feels Safe at Home: Yes Diet: regular caffeine: Yes during the past year weight has: remained stable Do you think of yourself as: straight/heterosexual Gender Identity: Female Assistive Devices: Walker Allergies Allergies Allergy/AdvReac Type Severity Reaction Status Date / Time pravastatin Allergy Unknown RABDOMYELITIS Verified 06/18/24 15:32 (?SPELLING), ELEVATED MUSCLE AND LIVER ENZYMES sulfamethoxazole Allergy Unknown Unknown Verified 06/18/24 15:32 [From Bactrim] trimethoprim [From Bactrim] Allergy Unknown Unknown Verified 06/18/24 15:32 nitrofurantoin AdvReac Severe Diarrhea Verified 06/18/24 15:32 [From Macrobid] Penicillins AdvReac Mild Diarrhea Verified 06/18/24 15:32 lisinopril AdvReac Unknown COUGH Verified 06/18/24 15:32 Home Meds Home Medications Medication Instructions Recorded Confirmed acetaminophen 500 mg capsule 1,000 mg PO TID 02/09/19 06/18/24 ezetimibe 10 mg tablet (Zetia) 10 mg PO QAM 02/09/19 06/18/24 omeprazole 20 mg capsule,delayed 20 mg PO BID 02/09/19 06/18/24 release vit C 250 mg-vit E 90 mg-zinc 40 1 tab PO BID 02/09/19 06/18/24 mg-copper 1 [id number] capsule (PreserVision AREDS-2) torsemide 10 mg tablet 10 mg PO DAILY 03/04/20 06/18/24 alendronate 70 mg tablet 70 mg PO WE 02/09/23 06/18/24 allopurinol 100 mg tablet 200 mg PO DAILY 02/09/23 06/18/24 docusate sodium 100 mg capsule 100 mg PO DAILY 02/09/23 06/18/24 (Colace) melatonin 10 mg tablet 10 mg PO HS 02/09/23 06/18/24 patiromer calcium sorbitex 8.4 8.4 g PO DAILY 02/09/23 06/18/24 gram oral powder packet (Veltassa) prednisone 5 mg tablet 5 mg PO Q OTHER DAY 02/09/23 06/18/24 hydroxyurea 500 mg capsule See Rx Instructions .Route .COMPLEX 05/26/23 06/18/24 ipratropium bromide 21 mcg (0.03 2 spray intranasal AMHS 05/26/23 06/18/24 %) nasal spray Previous Rx's Medication Instructions Recorded aspirin 81 mg tablet,delayed 81 mg PO QAM #0 tabs 06/03/23 release cephalexin 500 mg capsule 500 mg PO BID #10 caps 06/03/23 ciprofloxacin HCl 250 mg tablet 250 mg PO BID 5 days #10 tabs 06/20/23 estradiol 0.01% (0.1 mg/gram) 1 g vaginal DAILY #42.5 grams 11/22/23 vaginal cream Results & Data (ED) Vital Signs Vital Signs - 24 hr 08/03/24 14:46 08/03/24 15:20 08/03/24 16:02 Temperature 36.9 C Temperature Source Oral Pulse Rate 72 97 H Pulse Rate [Apical] 101 H Pulse Rate from SpO2 Sensor Respiratory Rate 16 18 Respiratory Effort / Characteristics Non-Labored Spontaneous Non-Labored Spontaneous Respiratory Depth Normal Respiratory Pattern Regular Blood Pressure 151/80 H Blood Pressure [Right Arm] 140/92 Blood Pressure Mean 103 Blood Pressure Mean [Right Arm] 108 Blood Pressure Position [Right Arm] Lying Pulse Oximetry 98 98 Oxygen Delivery Method Room Air Room Air Sepsis Recent Fever Within 48 Hours No Sepsis New/Unexplained Change in Mental Status N/A Sepsis Action Taken by Nursing No Action Required 08/03/24 17:00 08/03/24 19:00 08/03/24 19:30 Temperature Temperature Source Pulse Rate 108 H 104 H Pulse Rate [Apical] 106 H Pulse Rate from SpO2 Sensor 108 H 104 H Respiratory Rate 18 22 18 Respiratory Effort / Characteristics Non-Labored Spontaneous Respiratory Depth Respiratory Pattern Blood Pressure 138/110 H 146/75 H Blood Pressure [Right Arm] 139/81 Blood Pressure Mean 119 98 Blood Pressure Mean [Right Arm] 100 Blood Pressure Position [Right Arm] Pulse Oximetry 99 100 98 Oxygen Delivery Method Room Air Room Air Sepsis Recent Fever Within 48 Hours Sepsis New/Unexplained Change in Mental Status Sepsis Action Taken by Nursing Laboratory Data Attestation: I reviewed the patient's lab results. 08/03/24 15:03 08/03/24 15:03 Lab Results 08/03/24 08/03/24 Range/Units 15:02 15:03 WBC 20.92 H (4.8-10.8) K/ul RBC 3.68 L (4.20-5.40) M/uL Hgb 12.0 (12.0-16.0) g/dl POC Hgb 14.3 (12.0-16.0) g/dl Hct 38.7 (37.0-47.0) % POC Hct 42 (37-47) % MCV 105.2 H (80.0-100.0) fL MCH 32.6 (25.0-34.0) pg MCHC 31.0 L (32.0-36.0) g/dL RDW Std Deviation 57.1 H (36.4-46.3) fL RDW Coeff of Andreia 14.9 H (11.5-14.5) % Plt Count 473 H (130-400) K/uL MPV 9.8 (9.4-12.4) fL Immature Gran % (Auto) 1.2 % Neut % (Auto) 91.8 % Lymph % (Auto) 3.3 % Troup % (Auto) 2.9 % Eos % (Auto) 0.5 % Baso % (Auto) 0.3 % Neut # (Auto) 19.18 H (1.40-6.50) K/uL Lymph # (Auto) 0.70 L (1.20-3.40) K/uL Troup # (Auto) 0.61 H (0.11-0.59) K/uL Eos # (Auto) 0.10 (0.00-0.50) K/uL Baso # (Auto) 0.07 (0.00-0.20) K/uL Immature Gran # (Auto) 0.26 H (0.01-0.20) K/uL Polychromasia 1+ POC Sodium 140 (135-144) mmol/L Sodium 141 (136-145) mmol/L POC Potassium 5.1 H (3.3-5.0) mmol/L Potassium 4.3 (3.5-5.1) mmol/L POC Chloride 114 H (101-112) mmol/L Chloride 111 H (98-107) mmol/L Carbon Dioxide 20 L (21-32) mmol/L POC Total CO2 19 L (24-31) mmol/L Anion Gap 10 (3-11) POC Anion Gap 14.0 L (16-25) mmol/L POC BUN 28 H (7-18) mg/dl BUN 20 (6-23) mg/dl Creatinine 1.16 (0.6-1.2) mg/dl POC Creatinine 2.3 H (0.6-1.3) mg/dl Est Cr Clr Drug Dosing 33.9 ml/min eGFR 45.63 BUN/Creatinine Ratio 17.2 (10-20) Glucose 129 H (70-99(Fasting)) mg/dl POC Glucose (other) 142 H (70-99) mg/dl Calcium 8.0 L (8.6-10.3) mg/dl POC Ioniz Calcium Abida 0.95 L (1.12-1.32) mmol/l Phosphorus 2.6 (2.5-4.9) mg/dl Magnesium 1.0 L (1.7-2.4) mg/dl Total Bilirubin 0.6 (0.2-1.0) mg/dl AST 15 (13-39) U/L ALT 13 (7-52) U/L Alkaline Phosphatase 92 (34-104) U/L Total Protein 7.0 (6.0-8.3) gm/dl Albumin 4.4 (3.4-5.0) gm/dl Globulin 2.6 (2.5-4.0) gm/dl Albumin/Globulin Ratio 1.7 (0.9-2) Procalcitonin 0.03 (0-0.5) ng/ml TSH 1.308 (0.300-4.500) uIu/ml Administered Medications Discontinued Medications Magnesium Sulfate/Dextrose (Magnesium Sulfate / D5w) 1 gm in 100 mls @ 100 mls/hr IV Q1H EMILI Stop: 08/03/24 17:13 Last Infusion: 08/03/24 18:15 Dose: Infused Documented By: Admin: 08/03/24 16:55 Dose: 100 mls/hr Documented By: Infusion: 08/03/24 16:36 Dose: Infused Documented By: Admin: 08/03/24 15:30 Dose: 100 mls/hr Documented By: MAIKEL Sodium Chloride (Nss) 500 mls @ 999 mls/hr IV .Q31M ONE Stop: 08/03/24 15:44 Last Infusion: 08/03/24 16:36 Dose: Infused Documented By: Admin: 08/03/24 15:29 Dose: 999 mls/hr Documented By: MAIKEL Magnesium Sulfate/Dextrose (Magnesium Sulfate / D5w) 1 gm in 100 mls @ 100 mls/hr IV Q1H EMILI Stop: 08/03/24 18:28 Last Infusion: 08/03/24 20:25 Dose: Infused Documented By: Admin: 08/03/24 19:17 Dose: 100 mls/hr Documented By: Infusion: 08/03/24 19:16 Dose: Infused Documented By: Admin: 08/03/24 18:14 Dose: 100 mls/hr Documented By: MAIKEL Sodium Chloride (Nss) 500 mls @ 999 mls/hr IV .Q31M STA Stop: 08/03/24 20:19 Last Infusion: 08/03/24 22:01 Dose: Infused Documented By: Admin: 08/03/24 20:14 Dose: 999 mls/hr Documented By: WALLY Ioversol (Optiray 320 100ml) 93 ml IV ONCE ONE Stop: 08/03/24 17:02 Last Admin: 08/03/24 17:01 Dose: 93 ml Documented By: PRITESH Polyethylene Glycol (Polyethylene (Miralax) 17 Gm Pack) 34 gm PO ONE STA Stop: 08/03/24 19:35 Last Admin: 08/03/24 20:13 Dose: 34 gm Documented By: WALLY Imaging Data Radiologist's Impression: Abdomen/Pelvis CT 08/03/24 16:31 INDICATION: Diarrhea and leukocytosis. COMPARISON: Renal ultrasound from 06/10/2023. TECHNIQUE: Axial CT images of the abdomen and pelvis were obtained following IV contrast administration. Coronal and sagittal reformations were reviewed. FINDINGS: Mild cardiomegaly. Subsegmental atelectasis in the lung bases. The liver, gallbladder, spleen, pancreas and adrenal glands appear unremarkable. No hydronephrosis. Simple appearing left renal cyst measuring 4.4 cm. Right extrarenal pelvis noted. Fat-containing periumbilical hernia measuring approximately 5.2 x 4 cm. Negative for abdominal aortic aneurysm or dissection. No evidence of bowel obstruction/colitis/appendicitis. No free air. No drainable fluid collection. A Benson catheter decompresses the urinary bladder. Pessary device noted. Degenerative changes in the hips and spine. No acute osseous abnormality evident. IMPRESSION: 1. No acute process in the abdomen or pelvis. 2. Fat-containing periumbilical hernia 3. Simple appearing left renal cyst. Electronically signed by Faizan Ferreira 08-03-2024 5:47 PM Discharge Plan Visit Data Chief Complaint: Referred by Doctor Stated Complaint: DOCTOR REFERRED FOR MEDICATION INFUSION ED Provider: Dorian Blanchard Discharge Problem: Hypomagnesemia, Leukocytosis, Diarrhea Patient Disposition: Admitted As Inpatient Discharge Instructions Interventions: ED Discharge Assessment Last Done: 08/03/24 23:22 Discharge Problem: Leukocytosis Qualifiers: Leukocytosis type: unspecified Qualified Code(s): D72.829 - Elevated white blood cell count, unspecified Diarrhea Qualifiers: Diarrhea type: unspecified type Qualified Code(s): R19.7 - Diarrhea, unspecified
[2024-08-03 15:53] LABS: Thyroid Stimulating Hormone 1.308 uIu/ml (0.300-4.500)
[2024-08-03 16:02] LABS: Basophils # (auto) 0.07 K/uL (0.00-0.20); Basophils % (auto) 0.3 %; Eosinophils % (auto) 0.5 %; Immature Granulocytes # (auto) 0.26 K/uL (0.01-0.20); Immature Granulocytes % (auto) 1.2 %; Lymphocytes % (auto) 3.3 %; Monocytes # (auto) 0.61 K/uL (0.11-0.59); Monocytes % (auto) 2.9 %; Neutrophils # (auto) 19.18 K/uL (1.40-6.50); Neutrophils % (auto) 91.8 %; Polychromasia 1+
[2024-08-03] MEDS: OPTIRAY 320 100ml IV ONE (17:01)
--- NOTE | 2024-08-03 17:47 | CT Scan Report ---
INDICATION: Diarrhea and leukocytosis. COMPARISON: Renal ultrasound from 06/10/2023. TECHNIQUE: Axial CT images of the abdomen and pelvis were obtained following IV contrast administration. Coronal and sagittal reformations were reviewed. FINDINGS: Mild cardiomegaly. Subsegmental atelectasis in the lung bases. The liver, gallbladder, spleen, pancreas and adrenal glands appear unremarkable. No hydronephrosis. Simple appearing left renal cyst measuring 4.4 cm. Right extrarenal pelvis noted. Fat-containing periumbilical hernia measuring approximately 5.2 x 4 cm. Negative for abdominal aortic aneurysm or dissection. No evidence of bowel obstruction/colitis/appendicitis. No free air. No drainable fluid collection. A Benson catheter decompresses the urinary bladder. Pessary device noted. Degenerative changes in the hips and spine. No acute osseous abnormality evident. IMPRESSION: 1. No acute process in the abdomen or pelvis. 2. Fat-containing periumbilical hernia 3. Simple appearing left renal cyst. Electronically signed by Faizan Ferreira 08-03-2024 5:47 PM
--- NOTE | 2024-08-03 19:08 | History & Physical Report ---
Date of Service August 03, 2024 Assessment & Plan (1) Diarrhea: Plan: Pt is a 89 yo female with PMH of polymyalgia rheumatica, elevated platelets, bilateral LE lymphedema, CKD, and chronic sagastume cath presenting to the ER at the urging of her film spooler d/t low magnesium and potassium. Hypomagnesemia - suspect secondary to ongoing diarrhea - s/p 4g IV in ER - will recheck in AM Diarrhea - ongoing x4-5 weeks without related symptoms; unclear etiology but suspect secondary constipation/increased stool burden - miralax ordered 34g on admission; would consider addition of further laxatives based on response - d/t mild tachycardia and suspected hypovolemia, additional 500cc of NS ordered on admission - stool studies ordered (not yet collected) CKD/hyper vs. hypokalemia - baseline Cr appears to be around 1.2-1.4 - follows with Dr. Bassett ([place]ce[place]) as an outpatient - per pt's medication list, she was on Veltassa but per pt she was supplementing with potassium because her numbers were too low - lab review showed K 2.8 on 07/27 which has since normalized - will recheck BMP in AM Chronic leukocytosis/thrombocythemia - pt with longstanding leukocytosis; no acute concerning signs of malignancy - continue hydroxyurea - follows with Dr. Phelps ([place]ia) as an outpatient PMR - continue prednisone 5 mg every other day Diet: heart healthy VTE ppx: deferred on admission as expected short stay- would add chemical ppx if hospital stay prolonged Code: DNR/DNI Dispo: admit to med/surg (2) Hypomagnesemia: (3) CKD (chronic kidney disease) stage 2, GFR 60-89 ml/min: (4) Leukocytosis: (5) Polymyalgia rheumatica: (6) Chronic venous insufficiency: (7) Thrombocythemia: History of Present Illness Chief Complaint: low magnesium, potassium Primary Care Provider: [facility] Pt is a 89 yo female with PMH of polymyalgia rheumatica, elevated platelets, LE lymphedema, CKD, and chronic sagastume cath presenting to the ER at the urging of her film spooler d/t low magnesium and potassium. Per the pt, she had outpatient lab work last week which showed low potassium and magnesium. She was told she needed to come to the hospital for IV repletion. She has started oral potassium repletion at home. Pt also notes she has had ongoing diarrhea for 4-5 weeks. She denies blood in the stool, abdominal pain, fevers/chills, etc. Her stool originally had some solid portions but over the last few days has become water only. She has no significant hx of IBD but does note that the diagnosis of IBS has been discussed in the past especially since she seems to alternate between episodes of diarrhea and episodes of constipation. In the ER, pt was given 500cc NS and 4g IV mag. Allergies Allergy/AdvReac Type Severity Reaction Status Date / Time pravastatin Allergy Unknown RABDOMYELITIS Verified 08/12/24 13:09 (?SPELLING), ELEVATED MUSCLE AND LIVER ENZYMES sulfamethoxazole Allergy Unknown Unknown Verified 08/12/24 13:09 [From Bactrim] trimethoprim [From Bactrim] Allergy Unknown Unknown Verified 08/12/24 13:09 nitrofurantoin AdvReac Severe Diarrhea Verified 08/12/24 13:09 [From Macrobid] Penicillins AdvReac Mild Diarrhea Verified 08/12/24 13:09 lisinopril AdvReac Unknown COUGH Verified 08/12/24 13:09 methenamine AdvReac Unknown Verified 08/12/24 13:09 Home Medications Medication Instructions Recorded Confirmed Type acetaminophen 500 mg capsule 1,000 mg PO TID 02/09/19 08/12/24 History ezetimibe 10 mg tablet (Zetia) 10 mg PO QAM 02/09/19 08/12/24 History omeprazole 20 mg capsule,delayed 20 mg PO BID 02/09/19 08/12/24 History release vit C 250 mg-vit E 90 mg-zinc 40 1 tab PO BID 02/09/19 08/12/24 History mg-copper 1 [id number] capsule (PreserVision AREDS-2) torsemide 10 mg tablet 10 mg PO DAILY 03/04/20 08/12/24 History alendronate 70 mg tablet 70 mg PO WE 02/09/23 08/12/24 History allopurinol 100 mg tablet 200 mg PO DAILY 02/09/23 08/12/24 History melatonin 10 mg tablet 10 mg PO HS 02/09/23 08/12/24 History patiromer calcium sorbitex 8.4 8.4 g PO DAILY 02/09/23 08/12/24 History gram oral powder packet (Veltassa) prednisone 5 mg tablet 5 mg PO Q OTHER DAY 02/09/23 08/12/24 History hydroxyurea 500 mg capsule See Rx Instructions .Route .COMPLEX 05/26/23 08/12/24 History ipratropium bromide 21 mcg (0.03 2 spray intranasal AMHS 05/26/23 08/12/24 History %) nasal spray aspirin 81 mg tablet,delayed 81 mg PO QAM #0 tabs 06/03/23 08/12/24 Rx release loperamide 2 mg capsule 2 mg PO Q4H PRN loose stool #30 08/05/24 08/12/24 Rx caps Saccharomyces boulardii 250 mg 250 mg PO DAILY PRN Loose Stool 08/12/24 08/12/24 History capsule (Florastor) calcium carbonate 600 mg PO BID 08/12/24 08/12/24 History cholecalciferol (vitamin D3) 25 25 mcg PO DAILY 08/12/24 08/12/24 History mcg (1,000 unit) tablet cranberry 500 mg capsule 1,000 mg PO DAILY 08/12/24 08/12/24 History denosumab 60 mg/mL subcutaneous 60 mg subcut DIRECTED 08/12/24 08/12/24 History syringe (Prolia) estradiol 0.01% (0.1 mg/gram) 1 g vaginal DIRECTED 08/12/24 08/12/24 History vaginal cream ketorolac (PF) 0.45 % eye drops in 1 drp ophthalmic (eye) BID 08/12/24 08/12/24 History a dropperette lactulose 10 gram/15 mL oral 30 g PO DAILY 08/12/24 08/12/24 History solution lidocaine 4 % topical patch 1 patch topical DAILY 08/12/24 08/12/24 History magnesium chloride 64 mg 128 mg PO BID 08/12/24 08/12/24 History (magnesium chloride) tablet,delayed release magnesium hydroxide 400 mg/5 mL 5 ml PO HS 08/12/24 08/12/24 History oral suspension (Milk of Magnesia) nortriptyline 10 mg capsule 10 mg PO HS 08/12/24 08/12/24 History potassium chloride 10 mEq 10 meq PO BID 08/12/24 08/12/24 History tablet,extended release wheat dextrin (with aspartame) 3 1 ea PO DAILY 08/12/24 08/12/24 History gram/6 gram oral powder packet Past Med/Surg History Problem List Diarrhea (Acute) Leukocytosis (Acute) Hypomagnesemia (Acute) Urinary incontinence Osteoarthritis of knees, bilateral Leucocytosis Cellulitis of right lower leg (Acute) Recurrent UTI (urinary tract infection) Generalized weakness (Acute) Ambulatory dysfunction (Acute) Non-ST elevation ID (NSTEMI) (Acute) Rotator cuff arthropathy of both shoulders Bilateral primary osteoarthritis of knee Foreign body in left ear Pressure sore on buttocks Pessary maintenance Encounter for annual routine gynecological examination Rhabdomyolysis Facial contusion (Acute) Polymyalgia rheumatica Fall due to stumbling (Acute) Right wrist pain (Acute) Sepsis (Acute) Proximal muscle weakness (Acute) UTI (urinary tract infection) (Acute) History of tonsillectomy Status post meniscectomy History of fundoplication Leg pain, right (Acute) Thyroid disorder (Acute) Solitary thyroid nodule (Acute) SNHL (sensorineural hearing loss) (Acute) Reflux esophagitis (Acute) Macular degeneration (Acute) Lichen simplex chronicus (Acute) Other and unspecified hyperlipidemia (Acute) Hiatal hernia (Acute) Femoral bruit (Acute) Extremity atherosclerosis with intermittent claudication (Acute) Esophageal reflux (Acute) Dyslipidemia (Acute) Diverticulosis of colon (Acute) Carotid artery stenosis (Acute) Carotid art occ w/o infarc (Acute) Arthritis Acid reflux Encounter for pre-operative examination Uterine prolapse (Chronic) Rectocele (Acute) Cystocele, midline (Acute) Medical History CKD (chronic kidney disease) stage 2, GFR 60-89 ml/min Thrombocythemia Chronic venous insufficiency Hypertension CKD (chronic kidney disease) Osteoporosis Hard of hearing GERD (gastroesophageal reflux disease) Osteoarthritis High cholesterol High blood pressure History of Spontaneous Cystocele Adenomatous endometrial hyperplasia Surgical History Hx of left cataract extraction H/O dilation and curettage for MAB History of tonsillectomy and adenoidectomy H/O arthroscopic knee surgery RIGHT H/O colonoscopy History of endometrial biopsy History of repair of hiatal hernia Family History Aunt Breast cancer Father Hypertension Cerebral artery occlusion Mother TIA (transient ischemic attack) Osteoarthritis Rheumatoid arthritis Denies family history of Malignant hyperthermia Ovarian cancer Clotting disorder Colorectal cancer Social History Smoking Status: Never smoker Tobacco Type: Cigarettes Second Hand Exposure: No; Do You Dip or Chew Tobacco: No; Hx Alcohol Use: No Hx Substance Use: No Preferred Language: Salvadorean Communication Ability: Effective Hearing Ability: Hard of Hearing Manager Completions Required: No Beliefs That Will Affect Care: None marital status: Current Living Situation: Alone Current Living Situation Comment: lives at [facility] living unit current occupational status: retired Feels Safe at Home: Yes Safety Concerns: Feels Safe At This Time Diet: regular caffeine: Yes during the past year weight has: remained stable Do you think of yourself as: straight/heterosexual Gender Identity: Female Assistive Devices: Walker Review of Systems Review of Systems: As per HPI Physical Exam Physical Exam: Constitutional: well appearing, no acute distress HEENT: normocephalic, no conjunctival injection CV: RRR, no murmur, 2+ bilateral pitting edema Respiratory: CTA bilaterally. No rhonchi, wheezes, or crackles. No increased work of breathing GI: soft, nondistended, nontender, + bowel sounds Neuro: alert, oriented, no FND noted Psych: mood and affect congruent Results & Data Results & Data Vital Signs (Past 12 Hours) Vital Signs Temp Pulse Pulse Resp BP BP Pulse Ox 08/03/24 17:00 106 H 18 139/81 99 08/03/24 16:02 97 H 08/03/24 15:20 101 H 18 140/92 98 08/03/24 14:46 36.9 C 72 16 151/80 H 98 O2 Del Method 08/03/24 17:00 Room Air 08/03/24 16:02 08/03/24 15:20 Room Air 08/03/24 14:46 Room Air Supervising Physician Co-Signing Physician Notes I personally saw and examined the patient. I independently reviewed the labs, EKG, imaging, problem list, medication list, past medical history and family history. I verified all garcia points and agree with resident physician Dr Hien Armando DO with the following exceptions and/or additions: 89 year old female presents to the ER due to outpatient labs showing low magnesium level with ongoing watery diarrhea. O/E HS RRR, no murmurs, Chest CTAB, Abdo SNT A/P Hypomagnesemia - IV replacement given, repeat levels with AM labs Diarrhea - stool studies pending Resident Activity Tracking Resident Involvement: Resident Care Provided Care Provided: Adult [facility] Medicine
[2024-08-03] MEDS: POLYETHYLENE (MIRALAX) 17 GM PACK PO STA (19:44)
[2024-08-03] MEDS: SODIUM CHLORIDE 0.9% 500 ML IV STA (20:14)
[2024-08-04] MEDS: IPRATROPIUM BROMIDE NASAL SPRAY 0.06% 15ML NAE SCH (00:49)
[2024-08-04] MEDS: PANTOprazole 40 MG TAB PO SCH (00:49)
--- OUTSIDE RECORDS SUMMARY | 2024-08-04 01:14 | External Medical Summary | Summary of Care ---
Author Name Unknown Organization [facility] Address [address] [place] [address] Phone [phone] Care Team Providers Care Senior Web Designer Name Role Phone Bassam Banks MD Primary Care Provider [phone] Reason for Visit * Reason Onset Date Comments Other 07/24/2024 Encounter Details Date Type Department Care Team (Late st Contact Info) Description 07/24/2024 Telephone Nephrology, [facility] [address] [place] [address] Services, Scheduling [address] [place] [address] Other Allergies Active Allergy Reactions Criticality Noted Date Comments Lisinopril 03/24/2002 Marked cough reaction Methenamine Rash 04/28/2024 Nitrofurantoin Diarrhea 11/22/2022 Penicillins Low 03/13/2022 Other reaction(s): Diarrhea Pravastatin Sodium 09/28/2015 Elevated LFT's and CK/myalgias Sulfamethoxazole 12/28/2022 Trimethoprim 12/28/2022 documented as of this encounter (statuses as of 07/29/2024) Medications ICAPS LUTEIN-ZEAXANTHIN PO TBCR Take 1 Tablet by mouth in the morning. 09/10/19 07 Active predniSONE 5 MG Oral Tablet Take 1 Tablet by mouth every other day. Active acetaminophen (TYLENOL) 500 MG TabletIndications:t akes three times daily Take 2 Tablets by mouth in the morning and 2 Tablets at noon and 2 Tablets before bedtime. Active Omeprazole 20 MG Oral Capsule Delayed Release (PriLOSEC) Take 1 Capsule by mouth in the morning and 1 Capsule before bedtime. 30 Cap 2 12/30/19 21 Active Ipratropium [place] 0.03 % Nasal Solution (Atrovent) Administer 2 Sprays into each nostril in the morning and 2 Sprays before bedtime. 30 mL 3 08/30/19 23 Active Ezetimibe 10 MG Oral Tablet (Zetia)Indications: Dyslipidemia, goal LDL below 100,Statin intolerance TAKE 1 TABLET DAILY 90 Tablet 3 10/10/19 23 Active Allopurinol 100 MG Oral Tablet (Zyloprim) Take 2 Tablets by mouth in the morning. 60 Tablet 5 03/25/20 23 Active Veltassa 8.4 GM Oral Packet (Patiromer Sorbitex Calcium)Indications :Chronic kidney disease, stage 4 (severe) (HCC) Take 8.4 g by mouth in the morning. 30 Each 3 05/06/2023 9:29 AM EDT 04/01/20 23 Active Docusate Sodium 100 MG Oral Capsule (Colace) Take 1 Capsule by mouth every evening. Active Aspirin 81 MG Oral Tablet Delayed Release (Aspirin 81) Take 1 Tablet by mouth in the morning. Active Melatonin 10 MG Sublingual Tablet Sublingual Place under the tongue. Active Nortriptyline HCl 10 MG Oral Capsule (Pamelor) Take 1 Capsule by mouth at bedtime. Active Cholecalciferol 50 MCG (2000 UT) Oral Tablet Take by mouth. Activ e Estradiol 0.1 MG/GM Vaginal Cream (Estrace) Administer 2 g into the vagina in the morning. Every Saturday and Saturday. Active Cranberry 50 MG Oral Tablet Chewable Take 2 Tablets by mouth once. Active Calcium Carb-Cholecalcifero l 600-20 MG-MCG Oral Tablet (Calcium 600+D3) Take by mouth. Active Lidocaine 4 % External Patch (Aspercreme) Place 1 Patch topically on the skin daily. Active Hydroxyurea 500 MG Oral Capsule (Hydrea)Indications :Essential thrombocythemia (HCC) One tablet daily Saturday through Saturday only 20 Capsule 2 01/31/20 24 Active Magnesium Hydroxide 400 MG/5ML Oral Suspension (Mom) Take by mouth daily as needed for Constipation. Active Benefiber Oral Powder Take by mouth three times a day with meals. Active Saccharomyces boulardii 250 MG Oral Capsule (Florastor) Take 1 Capsule by mouth in the morning and 1 Capsule before bedtime. Active Torsemide 20 MG Oral Tablet (Demadex) Take 1 Tablet by mouth in the morning. May take an additional tablet in the afternoon for weight gain of 3-5 lbs or increased lower extremity edema. No more than 3 additional tablets per week.. 90 Tablet 3 05/26/20 24 Active documented as of this encounter (statuses as of 07/29/2024) Active Problems Problem Noted Date Diagnosed Date Peripheral venous insufficiency 05/26/2024 Chronic heart failure with preserved ejection fr action 05/26/2024 Localized edema 03/30/2024 Essential thrombocythemia 08/03/2023 Atrial ectopy 11/22/2017 Myalgia 02/10/2016 Statin intolerance 10/11/2015 Abnormal EKG 10/11/2015 Thyroid disorder 08/26/2012 Subjective tinnitus 07/14/2012 Sensorineural hearing loss, bilateral 07/14/2012 Sialadenitis 07/14/2012 History of tobacco use 07/14/2012 Chronic rhinitis 07/14/2012 PND (post-nasal drip) 07/14/2012 Laryngitis, chronic 07/14/2012 Pharyngitis, chronic 07/14/2012 Carotid stenosis, non-symptomatic 11/12/2010 Dyslipidemia, goal LDL below 100 05/05/2010 OSTEOARTHROSIS-MULT SITE 10/20/2004 Reflux esophagitis 10/12/2003 CERVICAL DISC DEGEN 03/13/2001 HTN, goal below 140/90 LOC PRIM OSTEOARTH-HAND Esophageal reflux Diaphragmatic hernia documented as of this encounter (statuses as of 07/29/2024) Resolved Problems Problem Noted Date Diagnosed Date Resolved Date Chronic kidney disease, stage 4 (severe) 04/16/2022 08/11/2023 Overview: Per CKD protocol Chronic kidney disease, stage 3b 01/16/2021 04/19/2022 Overview: Per CKD protocol Dyslipidemia, goal to be determined 06/27/2009 10/27/2009 Overview (06/27/2009): Per Lipid Taxonomy. ADVANCE DIRECTIVE INFORMATION 08/06/2006 05/11/2024 Overview (03/08/2006): Pt will supply a copy of her living will PURE HYPERCHOLESTEROLEM 10/01/200206/08 Overview (06/27/2009): Per Lipid Taxonomy. Dyslipidemia, goal to be determined 06/01/2009 Overview (06/01/2009): Per Lipid Taxonomy HTN, goal to be determined 1 07/13/2008 Overview (05/13/2009): Per HTN Taxonomy documented as of this encounter (statuses as of 07/29/2024) Immunizations Name Administration Dates Next Due COVID-19 mRNA, LNP-s, No Pre serve, 2-Dose Series (Moderna) 04/10/2021,10/09/2020,09/08/2020 Diptheria/Tetanus (Adult) 11/06/1995 H1N1 2009 Influenza, IM 10/27/2009 PPD 10/28/1987 Pneumococcal Conjugate Vacc, 13 Valent (Prevnar) 02/14/2015 Pneumococcal Polysaccharide PPV23 (Pneumovax) 06/21/2008,05/11/2002 Seasonal Influenza Vac., MDV , IM, 0.5 mL (Fluzone) 03/28/2015,03/16/2014,04/07/2013,03/17,03/27/2011,05/05/2010,04/11/2009 ,04/16/2008,05/02/2007,04/30/2006,04/07,04/21/2004,04/13/2003, 2,06/03/2000,05/16/1999 Seasonal Influenza Virus Vac cine, Unspecified Formulation 05/17/1998,05/27/1997 Seasonal Influenza, Quadriva lent Hd, 65+ Yrs 04/07/2021,04/07/2020 Seasonal Influenza, Quadriva lent, No Preserve, IM 03/19/2016 Seasonal Influenza, Trivalen t, Adjuvanted, 65+ YRS, PF, (Fluad) 04/21/2022,04/20/2019 TD, Preservative Free 06/21/2008 Varicella Zoster Vaccine (Adult) 2007 documented as of this encounter Social History Tobacco Use Types Packs/Day Years Used Date Smoking Tobacco: Former Cigarettes Q uit: 07/08/1961 Smokeless Tobacco: Never Alcohol Use Standard Drinks/Week Comments Yes 0 (1 standard drink = 0.6 oz pur e alcohol) occasional glass of wine Comments No Sex and Gender Information Value Date Recorded Sex Assigned at Not on file Legal Sex Female 5:23 AM EST Gender Identity Not on file Sexual Orientation Not on file Occupation Industry Job Start Date Job End Date retired Not on file Not on file Not on file documented as of this encounter Miscellaneous Notes * Telephone Encounter - Georgette Celestin LPN - 07/29/2024 10:40 AM EST New TT sent as previous message failed and was not sent * Telephone Encounter - Georgette Celestin LPN - 07/28/2024 4:10 PM EST Spoke with [facility]os aware Potassium 2.8 He states that a call was received today and they were advised to hold Veltessa for another week Last dose given pt was 07/24/24 pt continues to take Torsemide daily with no additional doses since 06/16/24 pt has minimal edema Denies pitting Karlos will fax weights to office for review Pt has had frequent loose stools and has requested Imodium X 2 this week for this Will await weights [place] Text sent advising of such * Telephone Encounter - Georgette Celestin LPN - 07/28/2024 2:55 PM EST LMM to return call to discuss * Telephone Encounter - Jessy Smith MD - 07/28/2024 2:02 PM EST Reviewed below. BMP drawn 07/27 and came back w/ K 2.8. Pls contact SNF TODAY -has veltassa been held per 07/24 notes below? -what date was it last given? -pt remains in torsemide 20 mg daily ? Pls verify; any recent additional doses? -any edema on exam? -any recent STANDING weights? -any diarrhea? Based on above will give recommendations on next steps > pls tiger text me * Telephone Encounter - Mary Bettencourt CRNP - 07/24/2024 3:19 PM EST Noted. Thank you * Telephone Encounter - Vickie Juarez CMA - 07/24/2024 2:23 PM EST [facility] aware to [facility] veltassa until Saturday. Repeat BMP Saturday. * Telephone Encounter - Mehran Brewer DO - 07/24/2024 2:11 PM EST [place] Veltassa. Repeat BMP next week on Saturday with PCP at the [facility]. Mehran Brewer DO * Telephone Encounter - Vickie Juarez CMA - 07/24/2024 1:39 PM EST Morena calling back from the [facility]. Was told that nephro wanted cardiology to address this. Potassium today was 3.1 * Telephone Encounter - Georgette Celestin LPN - 07/24/2024 1:15 PM EST Morena from the [facility] called Pt had labs ordered by hemology 07/22/24 pt is currently on Veltessa 8.4 grams 1 packet every morning Potassium level is 3.1 Wondering if they should hold Veltessa Pt is aware Dr smith is in outreach today but will send message Morena has also reached out to Dr Phelps's office regarding * Telephone Encounter - Gena You OSA - 07/24/2024 12:16 PM EST Good afternoon, Morena from the SNF on the line, the pt had lab work done and her potassium is low, the pt takes medication to lower her potassium. Please give her a call at [phone] Thank you documented in this encounter Plan of Treatment Upcoming Encounters Date Type Department Care Team (Late st Contact Info) Description 08/03/2024 11:50 AM EST Office Visit Ophthalmology, [facility] [address] [place] [address] Danny Cortez, [address] [place] [address] 08/17/2024 10:40 AM EST Office Visit Ophthalmology [facility] [address] [place] [address] Danny Cortez, [address] [place] [address] 08/28/2024 9:00 AM EST Pharmacy Pharmacy Hematology Oncology [facility] [address] [place] [address] [facility], [facility] Hem/Onc [address] [place] [address] 09/01/2024 3:00 PM EST Office Visit Hematology/Oncology Jerry Mcbride [place] [address] [place] [phone] Ana Batres CRNP [address] [place] [address] 09/10/2024 10:40 AM EST Office Visit Nephrology, [facility] [address] [facility] [place] [address] Jessy mSith MD [address] [facility] [place] [address] 10/16/2024 2:00 PM EDT Office Visit Rheumatology [facility] [address] [place] [phone] Aurora Montgomery CRNP [address] [facility] [place] [address] 11/25/2024 2:00 PM EDT Office Visit Cardiology, [facility] [address] [place] [address] Vida Osuna PA-C [address] [place] [id number] Health Maintenance Due Date Last Done Comments DTap/Tdap Vaccines (1 - Tdap) 06/22/2008 06/21/2008, 02/22/2000, 11/06/1995, Additional history exists Depression Screening 08/30/2016 08/30/2015 COVID-19 Vaccine (2023- season) 2024 06/21/2023, 04/10/2022, 04/10/2021, Additional history exists Influenza Vaccine (FLU shot) (#1) 2024 04/21/2022, 04/07/2021, 04/07/2020, Additional history exists Albumin/Creatinine Ratio 07/25/2026 024, 12/07/2021, 12/29/2020 DXA Scan 03/12/2030 03/12/2023, 02/07, 12/31/2011, Additional history exists Pneumococcal Vaccine: 50+ Years Completed 07/10/2019, 02/14/2015, 06/21/2008, Additional history exists Zoster Vaccines Completed 09/10/2019, 09/2019, 2007 Nephrology Referral Discontinued 03/05/2024 HPV (Gardasil) Vaccine Aged Out No lo nger eligible based on patient's age to complete this topic Hepatitis B Vaccine Aged Out No longe r eligible based on patient's age to complete this topic MENINGOCOCCAL (MENACTRA/MENVEO) Aged Out No longer eligible based on patient's age to complete this topic documented as of this encounter Medical Devices Not on filedocumented as of this encounter Care Teams Senior Web Designer Relationship Specialty Start Date End Date Bassam Banks MD [address] [place] [address] PCP - General Critical Care Medicine 04/25/20 documented as of this encounter
--- OUTSIDE RECORDS SUMMARY | 2024-08-04 01:14 | External Medical Summary | Summary of Care ---
Author Name Unknown Organization [facility] Address [address] [place] [address] Phone [phone] Care Team Providers Care Flight Dispatcher Name Role Phone Bassam Banks MD Primary Care Provider [phone] Reason for Visit * Reason Onset Date Comments Other 07/24/2024 Encounter Details Date Type Department Care Team (Late st Contact Info) Description 07/24/2024 Telephone Nephrology, [facility] [address] [place] [address] Services, Scheduling [address] [place] [address] Other Allergies Active Allergy Reactions Criticality Noted [...] 30 Cap 2 12/30/19 21 Active Ipratropium [place] 0.03 % Nasal Solution (Atrovent) Administer 2 [...] Encounter - Georgette Celestin LPN - 07/29/2024 12:04 PM EST Weight logs received scanned into [employer] placed on MD desk * Telephone Encounter - Georgette Celestin LPN [...] this week for this Will await weights [place] Text sent advising of such * Telephone [...] 07/24/2024 2:23 PM EST Morena at the [facility] aware to hold veltassa until Saturday. Repeat BMP Saturday. * Telephone Encounter - Mehran Brewer DO - 07/24/2024 2:11 PM EST Hole Veltassa. Repeat BMP next week on Saturday with PCP at the [facility]. Mehran Brewer DO * Telephone Encounter - Vickie Juarez CMA - 07/24/2024 1:39 PM EST Morena calling back from the [facility]. Was told that nephro wanted cardiology to address this. Potassium today was 3.1 * Telephone Encounter - Georgette Celestin LPN - 07/24/2024 1:15 PM EST [facility] called Pt had labs ordered by hemology [...] potassium. Please give her a call at [phone] Thank you documented in this encounter Plan of Treatment Upcoming Encounters Date Type Department Care Team (Late st Contact Info) Description 08/03/2024 11:50 AM EST Office Visit [address] [address] Danny Cortez, [address] [place] [address] 08/17/2024 10:40 AM EST Office Visit [facility] 132 [facility] [place] [address] Danny Cortez DO 16 [place] [address] 08/28/2024 9:00 AM EST Pharmacy Pharmacy Hematology Oncology [address] [place] [address] [facility], [facility] Hem/Onc [address] [facility], [place] [address] 09/01/2024 3:00 PM EST Office Visit Hematology/Oncology [facility] 200 [facility] [place] [phone] Ana Batres CRNP [address] [facility] [place] [address] 09/10/2024 10:40 AM EST Office Visit Nephrology, [facility] 200 [facility] [place] [address] Jessy Smith MD 200 [facility] [place] [address] 10/16/2024 2:00 PM EDT Office Visit Rheumatology [facility] [address] [place] [phone] Aurora Montgomery CRNP 2520 [facility] [place], [place] [address] 11/25/2024 2:00 PM EDT Office Visit Cardiology, [facility] [place] [address] Vida Osuna, [place] [address] [place] [address] Health Maintenance Due Date Last Done Comments DTap/Tdap Vaccines (1 - Tdap) 06/22/2008 06/21/2008, 02/22/2000, 11/06/1995, Additional history exists Depression Screening 08/30/2016 08/30/2015 COVID-19 Vaccine ( season) 2024 06/21/2023, 04/10/2022, 04/10/2021, Additional history [...] filedocumented as of this encounter Care Teams Flight Dispatcher Relationship Specialty Start Date End Date Bassam Banks MD [address] [place] [address] PCP - General Critical Care Medicine 04/25/20 documented as of this encounter
--- OUTSIDE RECORDS SUMMARY | 2024-08-04 01:15 | External Medical Summary | Summary of Care ---
Author Name Unknown Organization [facility] Address [address] [place] [address] Phone [phone] Care Team Providers Care Sales And Marketing Specialist Name Role Phone Bassam Banks MD Primary Care Provider [phone] Reason for Visit * Reason Onset Date Comments Other 07/24/2024 Encounter Details Date Type Department Care Team (Late st Contact Info) Description 07/24/2024 Telephone Nephrology, [facility] 200 [place] [address] Services, Scheduling [address] [place] [address] Other Allergies Active Allergy Reactions Criticality Noted Date Comments Lisinopril 03/24/2002 Marked cough reaction Methenamine Rash 04/28/2024 Nitrofurantoin Diarrhea 11/22/2022 Penicillins Low 03/13/2022 Other reaction(s): Diarrhea Pravastatin Sodium 09/28/2015 Elevated LFT's and CK/myalgias Sulfamethoxazole 12/28/2022 Trimethoprim 12/28/2022 documented as of this encounter (statuses as of 07/28/2024) Medications ICAPS LUTEIN-ZEAXANTHIN PO TBCR Take 1 [...] 30 Cap 2 12/30/19 21 Active Ipratropium [place] 0.03 % Nasal Solution (Atrovent) Administer 2 [...] as of this encounter (statuses as of 07/28/2024) Active Problems Problem Noted Date Diagnosed Date [...] as of this encounter (statuses as of 07/28/2024) Resolved Problems Problem Noted Date Diagnosed Date [...] as of this encounter (statuses as of 07/28/2024) Immunizations Name Administration Dates Next Due COVID-19 [...] encounter Miscellaneous Notes * Telephone Encounter - Jessy Smith MD [...] Juarez CMA - 07/24/2024 2:23 PM EST Mroena at the [facility] aware to hold veltassa until Saturday. Repeat BMP Saturday. * Telephone Encounter - Mehran Brewer DO - 07/24/2024 2:11 PM EST Hole Veltassa. Repeat BMP next week on Saturday with PCP at the [facility]. Mehran Brewer DO * Telephone Encounter - Vickie Juarez CMA - 07/24/2024 1:39 PM EST Morena calling back from the [facility]. Was told that nephro wanted cardiology to address this. Potassium today was 3.1 * Telephone Encounter - Georgette Celestin LPN - 07/24/2024 1:15 PM EST Morena from the [facility] called Pt had labs ordered by hemology [...] PM EST Good afternoon, Morena from the [facility] on the line, the pt had lab work done and her potassium is low, the pt takes medication to lower her potassium. Please give her a call at [phone] Thank you documented in this encounter Plan of Treatment Upcoming Encounters Date Type Department Care Team (Late st Contact Info) Description 08/03/2024 11:50 AM EST [facility] 132 [facility] [place] [address] Danny Cortez DO [address] [place] [address] [place] [address] 08/17/2024 10:40 AM EST Office Visit [facility] [place] [address] Danny Cortez, DO 16 [place] [address] 09/01/2024 3:00 PM EST Office Visit Hematology/Oncology [facility] 200 [facility] [place] [phone] Ana Batres CRNP 400 [facility] [place] [address] 09/10/2024 10:40 AM EST Office Visit Nephrology, [facility] 200 [facility] [place] [address] Jessy Smith MD 200 [facility] [place] [address] 10/16/2024 2:00 PM EDT Office Visit Rheumatology [facility] 132 [facility] [phone] Aurora Montgomery CRNP 2520 [facility] [place], [place] [address] 11/25/2024 2:00 PM EDT Office Visit Cardiology, [facility] [address] [facility] [place] [address] Vida Osuna PA-C 132 [facility] [place] [address] Health Maintenance Due Date Last Done Comments DTap/Tdap Vaccines (1 - Tdap) 06/22/2008 06/21/2008, 02/22/2000, 11/06/1995, Additional history exists Depression Screening 08/30/2016 08/30/2015 COVID-19 Vaccine ( - 2023- season) 2024 06/21/2023, 04/10/2022, 04/10/2021, Additional history [...] filedocumented as of this encounter Care Teams Sales And Marketing Specialist Relationship Specialty Start Date End Date Bassam Banks MD [address] [place] [address] PCP - General Critical Care Medicine 04/25/20 documented as of this encounter
--- OUTSIDE RECORDS SUMMARY | 2024-08-04 01:15 | External Medical Summary | Summary of Care ---
Author Name Unknown Organization [facility] Address [address] [place] [address] Phone [phone] Care Team Providers Care Rn Intake Name Role Phone Bassam Banks MD Primary Care Provider [phone] [phone] Reason for Visit * Reason Onset Date Comments Other 07/24/2024 Encounter Details Date Type Department Care Team (Late st Contact Info) Description 07/24/2024 Telephone Nephrology, [facility] 200 [place] [address] Services, Scheduling [address] [place] [address] Other Allergies Active Allergy Reactions Criticality Noted [...] 30 Cap 2 12/30/19 21 Active Ipratropium [place] 0.03 % Nasal Solution (Atrovent) Administer 2 [...] 07/28/2024 4:10 PM EST Spoke with Karlos martinez Potassium 2.8 He states that a call [...] this week for this Will await weights [place] Text send advising of such * Telephone Encounter - [...] 07/24/2024 2:23 PM EST Morena at the [facility] aware to hold veltassa until Saturday. Repeat BMP Saturday. * Telephone Encounter - Mehran Brewer DO - 07/24/2024 2:11 PM EST [place] Veltassa. Repeat BMP next week on Saturday with PCP at the [facility]. Mehran Brewer DO * Telephone Encounter - Vickie Juarez CMA - 07/24/2024 1:39 PM EST Morena calling back from the [facility]. Was told that nephro wanted cardiology to address this. Potassium today was 3.1 * Telephone Encounter - Georgette Celestin LPN - 07/24/2024 1:15 PM EST Morena from the [facility] called Pt had labs ordered by [...] potassium. Please give her a call at [phone] Thank you documented in this encounter Plan of Treatment Upcoming Encounters Date Type Department Care Team (Late st Contact Info) Description 08/03/2024 11:50 AM EST Office Visit Ophthalmology, [facility] [address] [place] [address] Danny Cortez, DO 16 [place] [address] 08/17/2024 10:40 AM EST Office Visit Ophthalmology, [facility] [address] [place] [address] Danny Cortez, DO [address] [place] [address] 08/28/2024 9:00 AM EST Pharmacy Pharmacy Hematology Oncology [place] [address] [place] [address] [facility] Hem[facility]Onc [address] [place] [address] 09/01/2024 3:00 PM EST Office Visit Hematology/Oncology [facility] [place] [address] [place] [phone] Ana Batres CRNP [address] [place], [place] [phone] 09/10/2024 10:40 AM EST Office Visit Nephrology, [facility] [address] [place] [address] Jessy Smith MD [address] [place] [address] 10/16/2024 2:00 PM EDT Office Visit Rheumatology [facility] [address] [place] [phone] Aurora Montgomery, [place] 0630 [facility] [place] [address] 11/25/2024 2:00 PM EDT Office Visit Cardiology, [facility] [address] [place] [address] V[place] Osuna, [place] [address] [place] [address] Health Maintenance Due Date Last Done Comments [...] filedocumented as of this encounter Care Teams Rn Intake Relationship Specialty Start Date End Date Bassam Banks MD [address] [place] [address] PCP - General Critical Care Medicine 04/25/20 documented as of this encounter
--- OUTSIDE RECORDS SUMMARY | 2024-08-04 01:15 | External Medical Summary | Summary of Care ---
Author Name Unknown Organization [facility] Address [address] [place] [address] Phone [phone] Care Team Providers Care Maint Mechanic Name Role Phone Bassam Banks MD Primary Care Provider [phone] [phone] Reason for Visit * Reason Onset Date Comments Other 07/24/2024 Encounter Details Date Type Department Care Team (Late st Contact Info) Description 07/24/2024 Telephone Nephrology, [facility] 200 [place] [address] Services, Scheduling [address] [place] [address] Other Allergies Active Allergy Reactions Criticality Noted [...] 30 Cap 2 12/30/19 21 Active Ipratropium [place] 0.03 % Nasal Solution (Atrovent) Administer 2 [...] 10:40 AM EST New TT sent as message failed * Telephone Encounter - Georgette Celestin LPN - 07/28/2024 4:10 PM EST Spoke with Karlos Chapin 2.8 He states that a call was [...] this week for this Will await weights [place] Text sent advising of such * Telephone [...] 07/24/2024 2:23 PM EST Morena at the [facility] aware to hold veltassa until Saturday. Repeat BMP Saturday. * Telephone Encounter - Mehran Brewer DO - 07/24/2024 2:11 PM EST [place] Veltassa. Repeat BMP next week on Saturday with PCP at the [facility]. Mehran Brewer DO * Telephone Encounter - Vickie uJarez CMA - 07/24/2024 1:39 PM EST Morena calling back from the [facility]. Was told that nephro wanted cardiology to address this. Potassium today was 3.1 * Telephone Encounter - Georgette Celestin LPN - 07/24/2024 1:15 PM EST Morena from the [facility] called Pt had labs ordered by [...] potassium. Please give her a call at [phone] Thank you documented in this encounter Plan of Treatment Upcoming Encounters Date Type Department Care Team (Late st Contact Info) Description 08/03/2024 11:50 AM EST Office Visit Ophthalmology [facility] 132 [place] [address] Danny Cortez, DO [address] [place] [address] 08/17/2024 10:40 AM EST [facility] 132 [place] [address] Danny Cortez, DO [address] [place] [address] 08/28/2024 9:00 AM EST Pharmacy Pharmacy Hematology Oncology [facility] [address] [place] [address] [facility] Hem/Onc [address] [place] [address] 09/01/2024 3:00 PM EST Office Visit [facility]ematology/[facility]cology [facility] [place] [address] [place] [address] Ana Batres CRNP [address] [place] [address] [place] [address] 09/10/2024 10:40 AM EST Office Visit Nephrology, [facility] 200 [facility] [place] [address] Jessy Smith MD 200 [facility] [place] [address] 10/16/2024 2:00 PM EDT Office Visit Rheumatology [facility] [address] [place] [phone] Aurora Montgomery CRNP [facility] [place] [address] 11/25/2024 2:00 PM EDT Office Visit Cardiology, [facility] [address] [place] [address] Vida Osuna, [place] [address] [place] [address] Health Maintenance Due Date Last Done Comments [...] filedocumented as of this encounter Care Teams Maint Mechanic Relationship Specialty Start Date End Date Bassam Banks MD [address] [place] [address] PCP - General Critical Care Medicine 04/25/20 documented as of this encounter
--- OUTSIDE RECORDS SUMMARY | 2024-08-04 01:15 | External Medical Summary | Summary of Care ---
Author Name Unknown Organization [facility] Address [address] [place] [address] Phone [phone] Care Team Providers Care Coil Shaper Name Role Phone Bassam Banks MD Primary Care Provider [phone] [phone] Reason for Visit * Reason Onset Date Comments Other 07/24/2024 Encounter Details Date Type Department Care Team (Late st Contact Info) Description 07/24/2024 Telephone Nephrology, [facility] 200 [place] [address] Services, Scheduling [address] [place] [address] Other Allergies Active Allergy Reactions Criticality Noted [...] 30 Cap 2 12/30/19 21 Active Ipratropium [place] 0.03 % Nasal Solution (Atrovent) Administer 2 [...] PM EST Morena at the [facility] aware to hold veltassa until Saturday. Repeat BMP Saturday. * Telephone Encounter - Mehran Brewer DO - 07/24/2024 2:11 PM EST Sai Mcginnisrichard. Repeat BMP next week on Saturday with PCP at the [facility]. Mehran Brewer DO * Telephone Encounter - Vickie Juarez CMA - 07/24/2024 1:39 PM EST Morena calling back from the [facility]. Was told that nephro wanted cardiology to address this. Potassium today was 3.1 * Telephone Encounter - Georgette Celestin LPN - 07/24/2024 1:15 PM EST Morena from the [facility] called Pt had labs ordered by hemology 07/22/24 pt is currently on Veltessa 8.4 grams 1 packet every morning Potassium level is 3.1 Wondering if they should hold Veltessa Pt is aware Dr smith is in outreach today but will send message Morena has also reached out to Dr Phelps's office regarding * Telephone Encounter - eGna You OSA - 07/24/2024 12:16 PM EST Good afternoon, Morean from the [facility] on the line, the pt had lab work done and her potassium is low, the pt takes medication to lower her potassium. Please give her a call at [phone] Thank you documented in this encounter Plan of Treatment Upcoming Encounters Date Type Department Care Team (Late st Contact Info) Description 08/03/2024 11:50 AM EST Office Visit Ophthalmology, [facility] 132 [facility] [place] [address] Danny Cortez, DO [address] [place] [address] 08/17/2024 10:40 AM EST Office Visit Ophthalmology, [facility] 132 [facility] [place] [address] Danny Cortez T, DO 16 [place] [address] 08/28/2024 9:00 AM EST Pharmacy Pharmacy Hematology Oncology [facility] [address] [place] [address] Gm, [facility] Hem/Onc [address] [place] [address] 09/01/2024 3:00 PM EST Office Visit Hematology/Oncology [facility] [place] 200 [facility] [place] [phone] Ana Batres CRNP 400 [place] [address] 09/10/2024 10:40 AM EST Office Visit Nephrology, [facility] 200 [facility] [place] [address] Jessy Smith MD 200 [facility] [place] [address] 10/16/2024 2:00 PM EDT Office Visit Rheumatology [facility] 132 [facility] [phone] Aurora Montgomery CRNP 2520 [facility] [place], [place] [address] 11/25/2024 2:00 PM EDT Office Visit Cardiology, [facility] 132 [facility] [place] [address] Vida Osuna, [place] 132 [facility] [place] [address] Health Maintenance Due Date Last Done Comments DTap/Tdap Vaccines (1 - Tdap) 06/22/2008 06/21/2008, 02/22/2000, 11/06/1995, Additional history exists Depression Screening 08/30/2016 08/30/2015 COVID-19 Vaccine (6 - season) 2024 06/21/2023, 04/10/2022, 04/10/2021, Additional history [...] filedocumented as of this encounter Care Teams Coil Shaper Relationship Specialty Start Date End Date Bassam Banks MD [address] [place] [address], [place] [address] PCP - General Critical Care Medicine 04/25/20 documented as of this encounter
--- OUTSIDE RECORDS SUMMARY | 2024-08-04 01:15 | External Medical Summary | Summary of Care ---
Author Name Unknown Organization [facility] Address [address] [place] [address] Phone [phone] Care Team Providers Care Travel Pt Name Role Phone Bassam Banks MD Primary Care Provider +1 [phone] Reason for Visit * Reason Comments Medication Management Encounter Details Date Type Department Care Team (Late st Contact Info) Description 07/28/2024 9:00 AM [facility] Pharmacy Pharmacy Hematology Oncology [facility] [address] [place] [address] [facility] Hem/Onc [address] [place] [address] MPN (myeloproliferative neoplasm) ([facility])* Allergies Active Allergy Reactions Criticality Noted Date [...] 30 Cap 2 12/30/19 21 Active Ipratropium [place] 0.03 % Nasal Solution (Atrovent) Administer 2 [...] 02/14/2015 Pneumococcal Polysaccharide PPV23 (Pneumovax) 06/21/2008 Seasonal Influenza Vac., MDV , IM, 0.5 mL (Fluzone) 03/28/2015,03/16/2014,04/07/2013,03/17,03/27/2011,05/05/2010,04/11/2009 ,04/16/2008,05/02/2007,04/30/2006 Seasonal Influenza, Quadriva lent Hd, 65+ Yrs [...] as of this encounter Progress Notes * Sybil Carmichael, [facility] - 07/28/2024 9:00 AM EST MEDICATION THERAPY MANAGEMENT HYDROXYUREA TREATMENT PROGRESS NOTE Linda Pal[place] [id number] Patient Phone Numbers (pt room at [facility]) [facility]: [phone] (personal care); [phone] Pt is hearing impaired. Speak loud Preferred Lab: Oniel Campuzano / [facility] Pharmacy: [facility] in [place] Communication: Spoke to: Patient and nurse Treatment: Medication: Hydroxyurea (Hydrea) Indication/Staging/Diagnosis Code: MPN, JAK2+ Dose: 500mg M-F ( 01/31/24) Administration: +/- food Start Date: 05/02/23 PLT goal: 400-500K (while keeping ANC > 1500) Primary Customer Service Officer/Oncologist: Dr. Phelps Preventative meds: Allopurinol 200mg daily Relevant Chronic Medications: Category Medications Pertinent Notes Anticoagulation ASA every other day Recommended by hem Interval History: Admitted to [facility] 05/26/23-06/03/23 for BLE cellulitis Per OV 08/01/23, lab monitoring extended to monthly Per OV 01/31/24, reduce hydrea to 500mg M-F Changes to medication list since last visit? No Assessment and Plan: PLT at goal 496K WBC increased to 22.37 HGB and HCT 11.5 and 36.9, respectively Potassium low at 2.8, reached out to nephrology who stated to hold Veltassa and repeat labs in one week. [facility] requested orders to be faxed to [phone] Had some diarrhea last month but has since resolved Continue current Hydrea dose and monthly labs Assessment of compliance: compliant - administered at ND Dose adjustment needed based on lab or adverse drug reaction? No Follow up: 1 month Sybil Carmichael, JustinoD Clinical Pharmacist PGY-1 Insurance Policy Issue Clerk 07/28/2024 1:36 PM Monitoring Parameters: Estimated CrCl Hepatitis panel [...] PLT 400-500K, ANC > 1500 Pertinent Labs: see media 07/28/24 WBC 22.37 HGB 11.5 HCT 36.9 PLT 496 ANC 82.1 Time Spent on Encounter: 6 - 10 minutes Encounter Group: Hematology Encounter Interventions Item Category: Oral Chemotherapy Hydroxurea Problem/Rationale: Effectiveness: Needs additional monitoring - Medication Requires monitoring Safety: Needs additional monitoring - Medication Requires monitoring Pharmacist Intervention(s): Lab monitoring Magnitude of Intervention: Monitoring with direction (Level 1) Cosigned by Kayley Goldman [facility] at 07/28/2024 2:18 PM EST documented in this encounter Plan of Treatment Upcoming Encounters Date Type Department Care Team (Late st Contact Info) Description 08/03/2024 11:50 AM EST Office Visit Ophthalmology, [address] [address] Danny Cortez, DO [address] [place] [address] 08/17/2024 10:40 AM EST Office Visit Ophthalmology, [address] [address] Danny Cortez, DO [address] [place] [address] 08/28/2024 9:00 AM EST Pharmacy Pharmacy Hematology Oncology [facility] [place] [address] [place] [address] [facility] [place] Hem/Onc [address] [place] [address] 09/01/2024 3:00 PM EST Office Visit Hematology/Oncology [facility] 200 [facility] [place] [phone] Ana Batres CRNP [address] [place] [address] 09/10/2024 10:40 AM EST Office Visit Nephrology, [facility] 200 [facility] [place] [address] Jsesy Smith MD 200 [facility] [place] [address] 10/16/2024 2:00 PM EDT Office Visit Rheumatology [facility] [address] [place] [phone] Aurora Montgomery CRNP [address] [facility] [place] [address] 11/25/2024 2:00 PM EDT Office Visit Cardiology, [facility] [address] [place] [address] Vida Osuna PA-C [address] [place] [address] Health Maintenance Due Date Last Done Comments [...] tissues documented in this encounter Care Teams Travel Pt Relationship Specialty Start Date End Date Bassam aBnks MD [address] [place] [address] PCP - General Critical Care Medicine 04/25/20 documented as of this encounter
--- OUTSIDE RECORDS SUMMARY | 2024-08-04 01:16 | External Medical Summary | Summary of Care ---
Author Name Unknown Organization [facility] Address [address] [place] [address] Phone [phone] Care Team Providers Care Heel Gummer Name Role Phone Bassam Banks MD Primary Care Provider [phone] [phone] Reason for Visit * Reason Onset Date Comments Advice 07/24/2024 Lenin Encounter Details Date Type Department Care Team (Late st Contact Info) Description 07/24/2024 Telephone Hematology/Oncology [facility] 200 [place] [phone] Jorden Phelps MD [address] [place] [address] Advice (Lenin) Allergies Active Allergy Reactions Criticality Noted Date [...] 30 Cap 2 12/30/19 21 Active Ipratropium [place] 0.03 % Nasal Solution (Atrovent) Administer 2 [...] copy of her living will PURE HYPERCHOLESTEROLEM 10/01/2002 12/2 07/2008 Overview (06/27/2009): Per Lipid Taxonomy. Dyslipidemia, goal [...] Encounter - Jessy Smith MD - 07/28/2024 2:01 PM EST See separate EPIC message 07/24. * Telephone Encounter - Janae Delaney RN - 07/24/2024 12:05 PM EST Called Karlos- he is wondering if patient veltessa should be held due to calcium. Advised him we do not prescribe this, would not advise on this medication or potassium. He states that it looks like nephrology orders this, will follow up with them. * Telephone Encounter - Tricia Wiseman OSA - 07/24/2024 11:57 AM EST [facility] requesting to speak to office regarding pts low potasium levels and if her medication need to be held. Please reach out to advise. Thank You! documented in this encounter Plan of Treatment Upcoming Encounters Date Type Department Care Team (Late st Contact Info) Description 08/03/2024 11:50 AM EST Office Visit Ophthalmology, [facility] 132 [place] [address] Danny Cortez, DO [address] [place] [address] 08/17/2024 10:40 AM EST Office Visit Ophthalmology, [facility] 132 [place] [address] Danny Cortez, DO [address] [place] [address] 09/01/2024 3:00 PM EST Office Visit Hematology/Oncology [facility] 200 [place] [phone] Ana Batres CRNP [address] [place] [address] 09/10/2024 10:40 AM EST Office Visit Nephrology, [facility] 200 [facility] [place], [place] [address] Jessy Smith MD 200 [place] [address] 10/16/2024 2:00 PM EDT Office Visit Rheumatology [facility] 132 [place] [phone] Aurora Montgomery CRNP [address] [facility] [place], [place] [address] 11/25/2024 2:00 PM EDT Office Visit Cardiology, [facility] 132 [place] [address] Vida Osuna PA-C 132 [place] [address] Health Maintenance Due Date Last Done Comments [...] filedocumented as of this encounter Care Teams Heel Gummer Relationship Specialty Start Date End Date Bassam Banks MD [address] [place] [address] PCP - General Critical Care Medicine 04/25/20 documented as of this encounter
[2024-08-04 05:24] LABS: Adenovirus F 40/41 PCR Not Detected (NotDetected); Astrovirus PCR Not Detected (NotDetected); Campylobacter PCR Not Detected (NotDetected); Cryptosporidium PCR Not Detected (NotDetected); Cyclospora cayetanensis PCR Not Detected (NotDetected); Entamoeba histolytica PCR Not Detected (NotDetected); Enteroaggregative E.coli(EAEC) Not Detected (NotDetected); Enteropathogenic E.coli (EPEC) Not Detected (NotDetected); Enterotoxigenic E.coli (ETEC) Not Detected (NotDetected); Giardia lamblia PCR Not Detected (NotDetected); Plesiomonas shigelloides PCR Not Detected (NotDetected); Rotavirus A PCR Not Detected (NotDetected); Salmonella PCR Not Detected (NotDetected); Sapovirus PCR Not Detected (NotDetected); Shiga-like Toxin E.coli (STEC) Not Detected (NotDetected); Shigella/Enteroinvasive E.coli Not Detected (NotDetected); Vibrio cholerae PCR Not Detected (NotDetected); Vibrio species PCR Not Detected (NotDetected); Yersinia enterocolitica PCR Not Detected (NotDetected)
[2024-08-04 05:36] LABS: Norovirus GI/GII PCR DETECTED (NotDetected)
--- OUTSIDE RECORDS SUMMARY | 2024-08-04 06:51 | External Medical Summary | Summary of Care ---
Author Name Unknown Organization [facility] Address [address] [place] [address] Phone [phone] Care Team Providers Care Cna Gna Name Role Phone Bassam Banks MD Primary Care Provider [phone] [phone] Reason for Visit * Reason Onset Date Comments Other 07/24/2024 Encounter Details Date Type Department Care Team (Late st Contact Info) Description 07/24/2024 Telephone Nephrology, [facility] [address] [place] [address] Services, Scheduling [address] [place] [address] Other Allergies Active Allergy Reactions Criticality Noted [...] 30 Cap 2 12/30/19 21 Active Ipratropium [place] 0.03 % Nasal Solution (Atrovent) Administer 2 [...] encounter Miscellaneous Notes * Telephone Encounter - Valdemar Celestin LPN - 07/29/2024 2:40 PM EST Orders faxed to [facility] at [phone] He will return call with any questions he may have about Dr Smith's written orders * Addendum Note - Valdemar Celestin LPN - 07/29/2024 2:21 PM ESTAddended by: VALDEMAR CELESTIN on: 07/29/2024 02:21 PM Modules accepted: Orders * Telephone Encounter - Valdemar Celestin LPN - 07/29/2024 2:15 PM EST Copy of notes/orders from below [facility] to [facility] along with labs orders To be clear and concise * Telephone Encounter - Jessy Smith MD - 07/29/2024 1:34 PM EST Outside weight trends: 173-174 Sept 172-174 Oct 175-176 05/01-05/13 176-178 Nov 176-180 Dec >>>07/14 (180) - 07/16 (169) <<<? B/c not weighing sagastume? Or other?? No e/o extra diuretics in Epic or [facility] Jul 16-present 169-170 Neph nurse to do: > pls convey orders to RN at facility >document RN statement that these orders will be done/ no issues w/ how they're ordered >hold torsemide tomorrow 07/30 >starting 07/31, give torsemide 10 mg daily not 20 mg >continue to hold veltassa >start potassium 10 mEq bid TODAY >today give an extra 60 mEq potassium po >tomorrow give with extra 40 mEq po >recheck bmp, mag on 07/31 STAT (if possible) and update covering provider ( I will be out of office) -plan to repeat bmp, mag on 08/03 as well * Telephone Encounter - Valdemar Celestin LPN - 07/29/2024 12:04 PM EST Weight logs received scanned into [employer] placed on MD desk * Telephone Encounter - Valdemar Celestin LPN - 07/29/2024 10:40 AM EST New TT sent as previous message failed and was not sent * Telephone Encounter - Valdemar Celestin LPN - 07/28/2024 4:10 PM EST [...] this week for this Will await weights [place] Text sent advising of such * Telephone Encounter - Valdemar Celestin LPN - 07/28/2024 2:55 PM EST [...] 07/24/2024 2:23 PM EST Morena at the [facility] aware to hold veltassa until Saturday. Repeat BMP Saturday. * Telephone Encounter - Mehran Brewer DO - 07/24/2024 2:11 PM EST [place] Veltassa. Repeat BMP next week on Saturday with PCP at the [facility]. Mehran Brewer DO * Telephone Encounter - Vickie Juarez CMA - 07/24/2024 1:39 PM EST [facility] calling back from the [facility]. Was told that nephro wanted cardiology to address this. Potassium today was 3.1 * Telephone Encounter - Valdemar Celestin LPN - 07/24/2024 1:15 PM EST Morena from the [facility] called Pt had labs ordered by hemology [...] PM EST Good afternoon, Morena from the [facility] on the line, the pt had lab work done and her potassium is low, the pt takes medication to lower her potassium. Please give her a call at [phone] Thank you documented in this encounter Plan of Treatment Upcoming Encounters Date Type Department Care Team (Late st Contact Info) Description 08/03/2024 11:50 AM EST Office Visit Ophthalmology, [facility] 132 [facility] [address] Danny Cortez, [address] [place] [address] 08/17/2024 10:40 AM EST Office Visit Ophthalmology, [facility] 132 [facility] [place] [address] Danny Cortez, [address] [place] [address] 08/28/2024 9:00 AM EST Pharmacy Pharmacy Hematology Oncology [facility] [place] [address] [place] [address] [facility], [facility] Hem/Onc [address] [place] [address] 09/01/2024 3:00 PM EST Office Visit Hematology/Oncology [facility] [employer] [address] [facility] [employer] [facility] [employer] [place] [phone] Ana Batres CRNP 400 [place] [address] 09/10/2024 10:40 AM EST Office Visit Nephrology, [facility] 200 [facility] [employer] [place] [employer] [place] [address] Jessy Smith MD 200 [facility] [employer] [place] [address] 10/16/2024 2:00 PM EDT Office Visit Rheumatology [facility] [place] [phone] Aurora Montgomery CRNP [address] [facility] [employer] [place] [address] 11/25/2024 2:00 PM EDT Office Visit Cardiology, [facility] [address] [place] [address] Vida Osuna PA-C [address] [place] [address] Scheduled Orders Name Type Priority Associated Diagnoses Orde r Schedule BASIC METABOLIC PANEL Lab STAT Hypokalemia HTN, goal below 140/90 Every Week for 2 Occurrences starting 07/29/2024 until 07/29/2025 MAGNESIUM Lab STAT Hypokalemia HTN, goal below 140/90 Every Week for 2 Occurrences starting 07/29/2024 until 07/29/2025 Health Maintenance Due Date Last Done Comments [...] as of this encounter Visit Diagnoses Diagnosis Hypokalemia- Primary Hypopotassemia HTN, goal below 140/90 Unspecified essential hypertension documented in this encounter Care Teams Cna Gna Relationship Specialty Start Date End Date Bassam Banks MD [address] [place] [address] PCP - General Critical Care Medicine 04/25/20 documented as of this encounter
--- OUTSIDE RECORDS SUMMARY | 2024-08-04 06:52 | External Medical Summary | Summary of Care ---
Author Name Unknown Organization [facility] Address [address] [place] [address] Phone [phone] Care Team Providers Care Dental Insurance Biller Name Role Phone aBssam Banks MD Primary Care Provider [phone] [phone] Reason for Visit * Reason Onset Date Comments Other 07/24/2024 Encounter Details Date Type Department Care Team (Late st Contact Info) Description 07/24/2024 Telephone [facility], [facility] [address] [place] [address] Services, Scheduling [address] [place] [address] Other Allergies Active Allergy Reactions Criticality Noted [...] 30 Cap 2 12/30/19 21 Active Ipratropium [place] 0.03 % Nasal Solution (Atrovent) Administer 2 [...] 1:34 PM EST Outside weight trends: 173-174 Mar 172-174 Apr 175-176 05/01-05/13 176-178 May 176-180 Jun >>>07/14 (180) - 07/16 (169) <<<? B/c not weighing sagastume? Or other?? No e/o extra diuretics in Epic or [facility] Jul 16-present 169-170 Neph nurse to do: [...] 08/03 as well * Telephone Encounter - Georgette Celestin LPN - 07/29/2024 12:04 PM EST Weight logs received scanned into [employer] Orginial placed on MD desk * Telephone Encounter [...] this week for this Will await weights [place] Text sent advising of such * Telephone [...] week on Saturday with PCP at the [facility]. Mehran Brewer DO * Telephone Encounter - Vickie Juarez CMA - 07/24/2024 1:39 PM EST Morena calling back from the [facility]. Was told that nephro wanted cardiology to address this. Potassium today was 3.1 * Telephone Encounter - Georgette Celestin LPN - 07/24/2024 1:15 PM EST Morena from the [facility] called Pt had labs ordered by [...] potassium. Please give her a call at [phone] Thank you documented in this encounter Plan of Treatment Upcoming Encounters Date Type Department Care Team (Late st Contact Info) Description 08/03/2024 11:50 AM EST Office Visit Ophthalmology, [facility] 132 [place] [address] Danny Cortez, DO [address] [place] [address] 08/17/2024 10:40 AM EST Office Visit Ophthalmology, [facility] 132 [place] [address] Danny Cortez, DO [address] [place] [address] 08/28/2024 9:00 AM EST Pharmacy Pharmacy Hematology Oncology [facility] [address] [place] [address] [facility] Hem/Onc [address] [place] [address] 09/01/2024 3:00 PM EST Office Visit Hematology/Oncology [facility] [place] [address] [place] [phone] Ana Batres CRNP 400 [facility] [place] [address] 09/10/2024 10:40 AM EST Office Visit Nephrology, [facility] [address] [place] [address] [address] Jessy Smith MD 200 [facility] [place] [address] 10/16/2024 2:00 PM EDT Office Visit Rheumatology [facility] [address] [place] [phone] Aurora Montgomery, STRUCTURES ENGINEER [address] [facility] [address] 11/25/2024 2:00 PM EDT Office Visit Cardiology, [facility] [address] [place] [address] Vida Osuna, [place] [address] [place] [address] Health Maintenance Due Date Last Done Comments [...] filedocumented as of this encounter Care Teams Dental Insurance Biller Relationship Specialty Start Date End Date Bassam Banks MD [address] [place] [address] PCP - General Critical Care Medicine 04/25/20 documented as of this encounter
--- OUTSIDE RECORDS SUMMARY | 2024-08-04 06:52 | External Medical Summary | Summary of Care ---
Author Name Unknown Organization [facility] Address [address] [place] [address] Phone [phone] Care Team Providers Care Claims Agent Right Of Way Name Role Phone Bassam Banks MD Primary Care Provider [phone] [phone] Reason for Visit * Reason Onset Date Comments Other 07/24/2024 Encounter Details Date Type Department Care Team (Late st Contact Info) Description 07/24/2024 Telephone Nephrology, [facility] 200 [place] [address] Services, Scheduling [address] [place] [address] Other Allergies Active Allergy Reactions Criticality Noted [...] 30 Cap 2 12/30/19 21 Active Ipratropium [place] 0.03 % Nasal Solution (Atrovent) Administer 2 [...] as of this encounter Miscellaneous Notes * Addendum Note - Valdemar Celestin LPN [...] Or other?? No e/o extra diuretics in [facility] or [facility] Jul 16- 169-170 Neph nurse to do: > pls [...] PM EST Weight logs received scanned into [employer] Orginial placed on MD desk * Telephone [...] this week for this Will await weights [place] Text sent advising of such * Telephone [...] 07/24/2024 2:23 PM EST [facility] at [facility] aware to hold veltassa until Saturday. Repeat BMP Saturday. * Telephone Encounter - Mehran Brewer DO - 07/24/2024 2:11 PM EST [place] Veltassa. Repeat BMP next week on Saturday with PCP at the [facility]. Mehran Brewer DO * Telephone Encounter - Vickie Juarez CMA - 07/24/2024 1:39 PM EST Morena calling back from the [facility]. Was told that nephro wanted [...] potassium. Please give her a call at [phone] Thank you documented in this encounter Plan of Treatment Upcoming Encounters Date Type Department Care Team (Late st Contact Info) Description 08/03/2024 11:50 AM EST Office Visit Ophthalmology, [address] [address] Danny Cortez, DO [address] [place] [address] 08/17/2024 10:40 AM EST Office Visit Ophthalmology, [facility] [address] [place] [address] Danny Cortez, DO [address] [place] [address] 08/28/2024 9:00 AM EST Pharmacy Pharmacy Hematology Oncology [facility] [address] [place] [address] [facility], [facility] Hem[facility]Onc [address] [place] [address] 09/01/2024 3:00 PM EST Office Visit Hematology/Oncology [facility] [address] [facility] [place] [address] Ana Batres CRNP [address] [place] [address] 09/10/2024 10:40 AM EST Office Visit Nephrology, [facility] [address] [facility] [place] [address] Jessy Smith MD 200 [facility] [place] [address] 10/16/2024 2:00 PM EDT Office Visit Rheumatology [facility] [address] [place] [phone] Aurora Montgomery CRNP [address] [facility] [place] [address] 11/25/2024 2:00 PM EDT Office Visit Cardiology, [facility] [address] [place] [address] Vida Osuna PA-C [address] [place] [address] Scheduled Orders Name Type Priority Associated Diagnoses [...] hypertension documented in this encounter Care Teams Claims Agent Right Of Way Relationship Specialty Start Date End Date Bassam Banks MD [address] [place] [address] PCP - General Critical Care Medicine 04/25/20 documented as of this encounter
[2024-08-04 07:20] LABS: Hematocrit (blood only) 35.4 % (37.0-47.0); Hemoglobin 11.2 g/dl (12.0-16.0); Mean Corpuscular Hemoglobin 32.4 pg (25.0-34.0); Mean Corpuscular Hgb Conc 31.6 g/dL (32.0-36.0); Mean Corpuscular Volume 102.3 fL (80.0-100.0); Mean Platelet Volume 9.7 fL (9.4-12.4); Platelet Count 433 K/uL (130-400); RDW Coefficient of Variation 14.8 % (11.5-14.5); RDW Standard Deviation 55.2 fL (36.4-46.3); Red Blood Count 3.46 M/uL (4.20-5.40); White Blood Count 20.73 K/ul (4.8-10.8)
[2024-08-04 07:52] LABS: Creatinine Clr Calc Pharmacy 46.6 ml/min
[2024-08-04 07:53] LABS: BUN Creatinine Ratio 16.5 (10-20); Calcium 7.8 mg/dl (8.6-10.3); Potassium 3.9 mmol/L (3.5-5.1)
[2024-08-04] MEDS: ASPIRIN 81 MG ECTAB PO SCH (08:44)
[2024-08-04] MEDS: TORSEMIDE 10 MG TAB PO SCH (08:44)
[2024-08-04] MEDS: EZETIMIBE 10 MG TAB PO SCH (08:44)
[2024-08-04] MEDS: HYDROXYUREA 500 MG CAP PO SCH (08:44)
[2024-08-04] MEDS: allopurinoL 100 MG TAB PO SCH (08:44)
[2024-08-04] MEDS: DOCUSATE SODIUM 100 MG CAP PO SCH (08:47)
--- NOTE | 2024-08-04 12:38 | Electrocardiogram Report ---
Test Reason : Blood Pressure : */* mmHG Vent. Rate : 111 BPM Atrial Rate : 111 BPM P-R Int : 188 ms QRS Dur : 132 ms QT Int : 352 ms P-R-T Axes : 32 241 -5 degrees QTcB Int : 478 ms Sinus tachycardia Right bundle branch block Abnormal ECG When compared with ECG of 11-Feb-2023 04:56, QRS axis Shifted left Confirmed by Kasi Weber ([id number]) on 08/04/2024 12:37:40 PM Referred By: [facility] Confirmed By: Kasi Weber
--- NOTE | 2024-08-04 14:39 | Hospitalist Progress Note ---
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 Found to be Norovirus positive on Stool PCR panel. #Hypomagnesemia- severely low on arrival at 1.0 and now normal. Suspect secondary to ongoing diarrhea plus loop diuretic and PPI use -control diarrhea -hold torsemide for now -avoid po mag due to ongoing diarrhea #Diarrhea/Norovirus-seems unlikely her diarrhea for 4 weeks is from Norovirus but at least causing the current diarrhea. She previously was taking multiple laxatives before diarrhea started,-was on milk of magnesia, lactulose,sennakot,docusate but stopped them when diarrhea started after [place]. The rest of Stool studies neg including C. diff. She was on nortriptyline previously, med rec not done here so unclear if still taking- perhaps having withdrawal from not taking this? -can take Imodium prn -if not resolving, f/u with GI -consider resuming Pamelor #CKD stage III/hypokalemia- baseline Cr appears to be around 1.2-1.4. Typically has hyperkalemia nad was taking Veltassa but then went low and stopped the Veltassa. Here her potassium is normal. Also due to torsemide use which was recently increased to 20mg and now back down to 10mg. Follows with Dr. Bassett ([facility] as an outpatient - will recheck BMP in AM #Chronic leukocytosis/essential thrombocytosis with JAK2 mutation-reviewed [facility] outpt Heme notes-they are aware of leukocytosis and suspec related to ET Normal spleen on CT abd/pel here - continue hydroxyurea - follow up routinely with Heme as outpt #PMR- continue prednisone 5 mg every other day VTE ppx: deferred on admission as expected short stay- would add chemical ppx if hospital stay prolonged Dispo: continued stay med/surg but [facility]-ordered PT/OT evals to see if ok to return to prior level of care (2) Hypomagnesemia: (3) CKD (chronic kidney disease) stage 2, GFR 60-89 ml/min: (4) Leukocytosis: (5) Polymyalgia rheumatica: (6) Chronic venous insufficiency: (7) Thrombocythemia: Admission and Anticipated Discharge Date Admission Date: August 03, 2024 Subjective Pt feels well, no diarrhea all day so far. Is eating. I discussed her care with her daughter on phone. No abd pains. Diarrhea ongoing for 4 weeks since taking multiple different laxatives for previous constipation. She has not been taking any laxatives for 4 weeks Physical Exam Constitutional: WD/WN, vitals as above Respiratory: normal respiratory effort, lungs clear to auscultation Cardiovascular: RRR, no murmur, no edema Gastrointestinal (Abdomen): normal bowel sounds, soft, nontender, no hepatosplenomegaly Results & Data Results & Data Vital Signs (Past 12 Hours) Vital Signs Temp Pulse Resp BP Pulse Ox O2 Del Method 08/04/24 08:02 36.6 C 75 16 154/73 H 98 Room Air Laboratory Results CBC BMP, LFTs, Procal, reviewed PG Care Time/CCT Total # of Minutes Spent Total Time Spent with Patient: Total time spent is greater than 50% in coordination of care (as documented) at patient's floor/unit and/or counseling patient: Coding Level of Care Code 92301 SUB INP/OBS CARE 2/35MIN Diagnoses Diarrhea R19.7 Diarrhea type: unspecified type Hypomagnesemia E83.42 CKD (chronic kidney disease) stage 2, GFR 60-89 ml/min N18.2 Leukocytosis D72.829 Leukocytosis type: unspecified Polymyalgia rheumatica M35.3 Chronic venous insufficiency I87.2 Thrombocythemia D75.839 (1) Diarrhea Diarrhea type: unspecified type Qualified Code(s): R19.7 - Diarrhea, unspecified (4) Leukocytosis Leukocytosis type: unspecified Qualified Code(s): D72.829 - Elevated white blood cell count, unspecified
[2024-08-04] MEDS: MELATONIN 3 MG TAB PO PRN (20:10)
[2024-08-04] MEDS: ACETAMINOPHEN 325 MG TAB PO PRN (20:10)
[2024-08-05 07:33] VITALS: BP 144/70; RESP 16; TEMP 97.7; O2SAT 97
[2024-08-05 07:59] LABS: Basophils # (auto) 0.06 K/uL (0.00-0.20); Basophils % (auto) 0.3 %; Eosinophils # (auto) 0.24 K/uL (0.00-0.50); Eosinophils % (auto) 1.2 %; Hematocrit (blood only) 36.7 % (37.0-47.0); Hemoglobin 11.3 g/dl (12.0-16.0); Immature Granulocytes # (auto) 0.15 K/uL (0.01-0.20); Immature Granulocytes % (auto) 0.7 %; Lymphocytes # (auto) 1.38 K/uL (1.20-3.40); Lymphocytes % (auto) 6.8 %; Mean Corpuscular Hemoglobin 31.8 pg (25.0-34.0); Mean Corpuscular Hgb Conc 30.8 g/dL (32.0-36.0); Mean Corpuscular Volume 103.4 fL (80.0-100.0); Mean Platelet Volume 9.5 fL (9.4-12.4); Monocytes # (auto) 1.86 K/uL (0.11-0.59); Monocytes % (auto) 9.2 %; Neutrophils # (auto) 16.53 K/uL (1.40-6.50); Neutrophils % (auto) 81.8 %; Platelet Count 408 K/uL (130-400); RDW Standard Deviation 56.4 fL (36.4-46.3); Red Blood Count 3.55 M/uL (4.20-5.40); White Blood Count 20.22 K/ul (4.8-10.8)
[2024-08-05 08:36] LABS: BUN Creatinine Ratio 16.4 (10-20); Calcium 8.3 mg/dl (8.6-10.3); Creatinine Clr Calc Pharmacy 34.1 ml/min; Magnesium 1.7 mg/dl (1.7-2.4); Potassium 5.4 mmol/L (3.5-5.1)
[2024-08-05 08:44] LABS: Folate (Folic Acid),Ser orPlas 8.3 ng/ml (>5.38)
[2024-08-05] MEDS: predniSONE 5 MG TAB PO SCH (09:34)
[2024-08-05] MEDS: MAGNESIUM SULFATE / D5W 1 GM/100 ML BAG IV ONE (10:32)
[2024-08-05] MEDS: TORSEMIDE 10 MG TAB PO ONE (10:32)
[2024-08-05] MEDS: LOPERAMIDE HCL 2 MG CAP PO PRN (10:37)
[2024-08-05] MEDS: PATIROMER CALCIUM SORBITEX 8.4 GM PACK PO SCH (12:33)
[2024-08-05 14:29] VITALS: PULSE 87
--- NOTE | 2024-08-05 14:32 | Discharge Summary ---
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 Found to be Norovirus positive on Stool PCR panel. #Hypomagnesemia- severely low on arrival at 1.0 and now normal. Suspect secondary to ongoing diarrhea plus loop diuretic and PPI use -control diarrhea -resumed torsemide due to hyperkalemia, but could consider lowering dose to every other day moving forward-defer to Nephrology -avoid po mag due to ongoing diarrhea -consider decreasing PPI use or eliminating altogether #Diarrhea/Norovirus-seems unlikely her diarrhea for 4 weeks is from Norovirus but at least is causing the current diarrhea. She previously was taking multiple laxatives before diarrhea started,-was on milk of magnesia, lactulose,Senokot,docusate but stopped them when diarrhea started after [place]. The rest of Stool studies neg including C. diff. -can take Imodium prn -if not resolving, f/u with GI -she does take Pamelor but it was not on her home med rec here...probably a med rec mistake-resume [facility] and consider increasing dose to decrease diarrhea-defer to GI if needs to be done #CKD stage III/hypokalemia- baseline Cr appears to be around 1.2-1.4. Typically has hyperkalemia and was taking Veltassa but then K+ went low and stopped the Veltassa. Here her potassium was normal, but then increased to 5.4 on day of discharge. Also due to torsemide use which was recently increased to 20mg and now back down to 10mg. Follows with Dr. Bassett ([facility]) Nephrology as an outpatient -resume Veltassa -continue torsemide -check BMP and Mag level in 2 days with PCP at [facility] #Chronic leukocytosis/essential thrombocytosis with JAK2 mutation-reviewed [facility] outpt Heme notes-they are aware of leukocytosis and suspect related to ET Normal spleen on CT abd/pel here - continue hydroxyurea - follow up routinely with Heme as outpt #PMR- continue prednisone 5 mg every other day VTE ppx: deferred on admission as expected short stay Dispo: dc to [facility] today-doing well with PT Notes For Next Care Provider Check BMP, mag in 2 days Consider decreasing torsemide to every other day Consider decreasing protonix to once daily or discontinuing for hypomagnesemia Follow up with GI if diarrhea not improving Medication Changes From Visit Added Imodium prn Added Veltassa Admission HPI Per Admitting Provider Pt is a 89 yo female with PMH of polymyalgia rheumatica, elevated platelets, LE lymphedema, CKD, and chronic sagastume cath presenting to the ER at the urging of her mold mover d/t low magnesium and potassium. Per the pt, she had outpatient lab work last week which showed low potassium and magnesium. She was told she needed to come to the hospital for IV repletion. She has started oral potassium repletion at home. Pt also notes she has had ongoing diarrhea for 4-5 weeks. She denies blood in the stool, abdominal pain, fevers/chills, etc. Her stool originally had some solid portions but over the last few days has become water only. She has no significant hx of IBD but does note that the diagnosis of IBS has been discussed in the past especially since she seems to alternate between episodes of diarrhea and episodes of constipation. In the ER, pt was given 500cc NS and 4g IV mag. Discharge Exam Constitutional WD/WN, vitals as above Respiratory normal respiratory effort, lungs clear to auscultation Cardiovascular RRR, no murmur, no edema Gastrointestinal (Abdomen) normal bowel sounds, soft, nontender, no hepatosplenomegaly Discharge Plan Discharge Items Patient Disposition: Personal Snf Reason For Visit: HYPOMAGNESEMIA Discharge Diagnosis: Norovirus Hypomagnesemia Condition on Discharge: Good Activity: Resume your previous activity Non-emergency contact: Primary Care Provider and Services Program Manager Call non-emergency contact if: you have any medication questions and your symptoms worsen Follow-up/Referrals: [facility] [Primary Care Provider] - (Follow up within 1- 2 weeks) Diet: Low Potassium (2gm) and Low Fiber Addtl Attending Provider Instructions: You were admitted with low magnesium levels from diarrhea. The current diarrhea is from Norovirus and seems to be improving with Imodium. Your previous diarrhea may be related to previous laxative use but if your diarrhea does not improve, please follow up with your GI doctor for further evaluation. Your potassium level is now back to being slightly high and your Veltassa was resumed. Please have your PCP check your potassium and magnesium levels in 2-3 days. Pending Studies at Discharge: No Stand-Alone Forms: My [facility], Smoking Cessation Skilled Items Patient informed of condition?: Yes DNR: Yes Discharge Level of Care: Other Communicable Disease: Yes (Norovirus) Discharge Prognosis: Improving Lines: None Urinary Catheter: No Medications and DC Order Prescriptions: New loperamide 2 mg Capsule 2 mg PO Q4H PRN (Reason: loose stool) Qty: 30 0RF Continued torsemide 10 mg tablet 10 mg PO DAILY estradiol 0.01 % (0.1 mg/gram) cream 1 g vaginal DAILY Qty: 42.5 2RF Rx Instructions: Apply pea-sized amount to vaginal opening once daily for 90 days, then twice weekly thereafter omeprazole 20 mg Capsule,Delayed Release(Dr/Ec) 20 mg PO BID acetaminophen 500 mg Capsule 1,000 mg PO TID ezetimibe [Zetia] 10 mg Tablet 10 mg PO QAM Patient Comments: TAKE GENERIC FORM PreserVision AREDS-2 [id number]-mg Capsule 1 tab PO BID alendronate 70 mg tablet 70 mg PO WE prednisone 5 mg tablet 5 mg PO Q OTHER DAY Rx Instructions: Takes on odd days allopurinol 100 mg tablet 200 mg PO DAILY melatonin 10 mg Tablet 10 mg PO HS Veltassa 8.4 gram powder in packet 8.4 g PO DAILY hydroxyurea 500 mg capsule See Rx Instructions .ROUTE .COMPLEX Rx Instructions: take 1 capsule by mouth every day SATURDAY through SATURDAY TAKE 2 CAPSULES ON SATURDAY AND SATURDAY ipratropium bromide 21 mcg (0.03 %) spray,non-aerosol 2 spray INTRANASAL [facility] aspirin 81 mg Tablet,Delayed Release (Dr/Ec) 81 mg PO QAM Qty: 0 0RF Discontinued ciprofloxacin HCl 250 mg tablet 250 mg PO BID 5 Days Qty: 10 0RF docusate sodium [Colace] 100 mg Capsule 100 mg PO DAILY cephalexin 500 mg Capsule 500 mg PO BID Qty: 10 0RF Discharge Orders: Discharge Order (Routine); Ordered 08/05/24 Ordered By: Anaya Underwood Admission Data Admit Date/Time: 08/03/24 19:31 Attending Provider: Anaya Underwood Admit Provider: Hien Armando Primary Care Provider: [facility] Other Providers: Isreal Gale Hospital Stay Data Consultations 08/03/24 17:16 ED Decision to Admit Stat Diagnostic Imagining Performed 08/03/24 16:31 CT abd pelvis IV con only Stat Pending Results Patient Have Any Pending Studies at Discharge: No Discharge Instructions Given to Patient (Per Discharging Provider) You were admitted with low magnesium levels from diarrhea. The current diarrhea is from Norovirus and seems to be improving with Imodium. Your previous diarrhea may be related to previous laxative use but if your diarrhea does not improve, please follow up with your GI doctor for further evaluation. Your potassium level is now back to being slightly high and your Veltassa was resumed. Please have your PCP check your potassium and magnesium levels in 2-3 days. Total Time Total Time Spent Total Time Spent (In Minutes): 40 min Total Time Includes: Examination of the Patient, Discharge Planning and Medication Reconciliation Coding Level of Care Code 59684 INP/OBS DISCH >30 MIN Diagnoses Diarrhea R19.7 Diarrhea type: unspecified type Hypomagnesemia E83.42 CKD (chronic kidney disease) stage 2, GFR 60-89 ml/min N18.2 Leukocytosis D72.829 Leukocytosis type: unspecified Polymyalgia rheumatica M35.3 Chronic venous insufficiency I87.2 Thrombocythemia D75.839
[2024-08-08] MEDS ORDERED: HYDROXYUREA 500 MG CAP PO SCH (09:00)
--- NOTE | 2024-08-13 00:11 | Billing Data ---
Date of Service August 03, 2024 Coding Level of Care Code 48666 INT INP/OBS CARE
== END 2024-08-05 14:36 | disposition home or self-care (01) | DRG 641 ==
LOC: ED 14:37 → SUATTDRO 19:31 → 3W 19:31 → INTOOBSV 19:31 → 3W 23:22